=== PATIENT | male | born 1955 | race Caucasian/White ===

== ENCOUNTER 2017-07-25 06:16 | Observation (INO) | payer OTHER ==
--- NOTE | 2017-07-25 08:11 | PDOC ---
History of Present Illness - General History Source: Patient Exam Limitations: No Limitations - History of Present Illness Initial Comments: 07/25/17 10:40 The patient is a 62 year old male, with a significant past medical history of CAD s/p 2 stents (5yrs ago), L femoral bypass, L carotid stenting, NIDDM and HTN who presents to the emergency department with SOB since this morning. He reports waking up this morning with a dry throat, he notes getting up to go to the bathroom with the sudden onset of SOB after. He reports since his SOB is much worse when he lies down. He denies any LE swelling. He denies any recent travel. He denies any recent fevers, chills, headache or dizziness. He denies any recent nausea, vomit, diarrhea or constipation. He denies any recent chest pain. He denies any recent dysuria, frequency, urgency or hematuria. Allergies: NKA Past surgical history: x3 stents Social History: Nonsmoker. Denies EtOH use and recreational drug use. Primary Care Physician: <Marin Petersen - Last Filed: 07/25/17 10:40> <Vee Santiago - Last Filed: 07/25/17 14:27> - General Chief Complaint: Shortness of Breath Stated Complaint: SOB Time Seen by Provider: 07/25/17 07:54 Past History <Marin Petersen - Last Filed: 07/25/17 10:40> - Past Medical History Anemia: No Asthma: No Cancer: No Cardiac Disorders: Yes (CARDIAC STENT 2012) CVA: No COPD: No Diabetes: Yes GI Disorders: No Disorders: No HTN: Yes Hypercholesterolemia: No Liver Disease: No Seizures: No Thyroid Disease: No - Surgical History Abdominal Surgery: No Appendectomy: Yes Cardiac Surgery: Yes (CARDIAC 2012) Cholecystectomy: No Lung Surgery: No Neurologic Surgery: No Orthopedic Surgery: No - Suicide/Smoking/Psychosocial Hx Smoking Status: No Smoking History: Never smoked Have you smoked in the past 12 months: No Number of Cigarettes Smoked Daily: 0 If you are a former smoker, when did you quit?: 08/08/2012 Information on smoking cessation initiated: No Hx Alcohol Use: No Drug/Substance Use Hx: No Substance Use Type: None Hx Substance Use Treatment: No <Vee Santiago - Last Filed: 07/25/17 14:27> - Past Medical History Allergies/Adverse Reactions: Allergies Allergy/AdvReac Type Severity Reaction Status Date / Time No Known Drug Allergies Allergy Verified 07/25/17 06:29 Home Medications: Ambulatory Orders Amlodipine Bes/Olmesartan Med [Hans 10-20 mg Tablet] 10 - 20 mg PO DAILY Aspirin [ASA -] 81 mg PO DAILY 01/15/14 Sitagliptin Phos/Metformin HCl [Janumet 50-1,000 mg Tablet] 1 tab PO BID Nebivolol HCl [Bystolic] 2.5 mg PO DAILY 07/25/17 Review of Systems - Review of Systems Able to Perform ROS?: Yes Comments:: 07/25/17 10:40 GENERAL/CONSTITUTIONAL: No fever or chills. No weakness. HEAD, EYES, EARS, NOSE AND THROAT: No change in vision. No ear pain or discharge. +sore throat. GASTROINTESTINAL: No nausea, vomiting, diarrhea or constipation. GENITOURINARY: No dysuria, frequency, or change in urination. CARDIOVASCULAR: +SOB. No chest pain. RESPIRATORY: No cough, wheezing, or hemoptysis. MUSCULOSKELETAL: No joint or muscle swelling or pain. No neck or back pain. SKIN: No rash NEUROLOGIC: No headache, vertigo, loss of consciousness, or change in strength/ sensation. ENDOCRINE: No increased thirst. No abnormal weight change. HEMATOLOGIC/LYMPHATIC: No anemia, easy bleeding, or history of blood clots. ALLERGIC/IMMUNOLOGIC: No hives or skin allergy. <Marin Petersen - Last Filed: 07/25/17 10:40> *Physical Exam - Vital Signs Last Vital Signs Temp Pulse Resp BP Pulse Ox 98.0 F 88 18 134/64 98 07/25/17 08:45 07/25/17 08:45 07/25/17 08:45 07/25/17 08:45 07/25/17 08:45 - Physical Exam Comments: 07/25/17 10:40 GENERAL: Awake, alert, and fully oriented, in no acute distress HEAD: No signs of trauma EYES: PERRLA, EOMI, sclera anicteric, conjunctiva clear ENT: Auricles normal inspection, hearing grossly normal, nares patent, oropharynx clear without exudates or erythema. No tonsillar swelling. Moist mucosa NECK: Normal ROM, supple, no lymphadenopathy, JVD, or masses LUNGS: Breath sounds equal, clear to auscultation bilaterally. No wheezes, and no crackles HEART: Regular rate and rhythm, normal S1 and S2, no murmurs, rubs or gallops ABDOMEN: Soft, nontender, normoactive bowel sounds. No guarding, no rebound. No masses EXTREMITIES: 1+ pitting edema in the LE bilaterally to the knees. Normal range of motion. No clubbing or cyanosis. No cords, erythema, or tenderness BACK: No midline spinal tenderness in cervical/thoracic/lumbar region NEUROLOGICAL: Normal speech, cranial nerves intact, negative pronator drift, 5/ 5 strength in all 4 extremities, normal sensation to light touch in all 4 extremities, normal cerebellar exam, normal gait, normal reflexes and tone SKIN: Warm, Dry, normal turgor, no rashes or lesions noted. <Marin Petersen - Last Filed: 07/25/17 10:40> - Vital Signs Last Vital Signs Temp Pulse Resp BP Pulse Ox 97.6 F 94 H 20 155/79 95 07/25/17 06:18 07/25/17 06:18 07/25/17 06:18 07/25/17 06:18 07/25/17 06:18 <Vee Santiago - Last Filed: 07/25/17 14:27> ED Treatment Course - LABORATORY CBC & Chemistry Diagram: 07/25/17 09:20 07/25/17 08:40 - ADDITIONAL ORDERS Additional order review: Laboratory Results 07/25/17 07/25/17 07/25/17 08:45 08:40 08:40 PT with INR 9.60 L INR 0.85 L PTT (Actin FS) 17.7 L D-Dimer 699 H Sodium Cancelled Potassium Cancelled Chloride Cancelled Carbon Dioxide Cancelled Anion Gap Cancelled BUN Cancelled Creatinine Cancelled Creat Clearance w eGFR Cancelled Random Glucose Cancelled Calcium Cancelled Magnesium Cancelled Total Bilirubin Cancelled AST Cancelled ALT Cancelled Alkaline Phosphatase Cancelled Troponin I Cancelled B-Natriuretic Peptide 1925.10 H Total Protein Cancelled Albumin Cancelled Lipase Cancelled 07/25/17 07/25/17 09:20 08:45 RBC 4.79 Cancelled MCV 84.5 Cancelled MCHC 33.3 Cancelled RDW 13.7 Cancelled MPV 8.4 Cancelled Neutrophils % 72.9 Cancelled Lymphocytes % 20.3 Cancelled Monocytes % 5.2 Cancelled Eosinophils % 0.6 Cancelled Basophils % 1.0 Cancelled <Marin Petersen - Last Filed: 07/25/17 10:40> - LABORATORY CBC & Chemistry Diagram: 07/25/17 09:20 07/25/17 10:44 <Vee Santiago - Last Filed: 07/25/17 14:27> Medical Decision Making - Medical Decision Making 07/25/17 08:23 62-year-old male history of CAD status post stent, carotid stent, left femoral bypass, hypertension, [id number] diabetes mellitus presents with sudden onset shortness of breath this morning. Vitals remarkable for hypertension to the 150 systolic, otherwise normal. Exam remarkable for 1+ lower extremity symmetric pitting edema. Differential is wide and includes but is not limited to acute coronary syndrome versus pulmonary embolism versus CHF versus bronchitis. We'll obtain blood work including troponin, d-dimer, and BNP as well as chest x-ray, and discussed with . 07/25/17 14:25 Labs remarkable for a BNP of 1900. D-dimer was positive, however CTA was negative for PE but showed bilateral small pleural effusions. In light of the lower extremity edema and shortness of breath on exam, patient is likely a new onset CHF. Case discussed with the patient's primary physician Dr. Fatima. Patient to be admitted to telemetry. Also discussed the case with Dr. Doll. Case discussed in detail with admitting physician including history, physical exam and ancillary studies. Admitting physician has assumed care for the patient, will follow all pending diagnostics and will complete the evaluation and treatment. <Vee Santiago - Last Filed: 07/25/17 14:27> *DC/Admit/Observation/Transfer - Attestations Scribe Attestion: 07/25/17 10:41 Documentation prepared by Marin Petersen, acting as medical scientific liaison for Vee Santiago MD. <Marin Petersen - Last Filed: 07/25/17 10:40> - Discharge Dispostion Admit: Yes - Attestations Physician Attestion: 07/25/17 14:27 I, Dr. Vee Santiago MD, attest that this document has been prepared under my direction and personally reviewed by me in its entirety. I further attest, that it accurately reflects all work, treatment, procedures and medical decision -making performed by me. <Vee Santiago - Last Filed: 07/25/17 14:27> Diagnosis at time of Disposition: SOB (shortness of breath) - Discharge Dispostion Condition at time of disposition: Stable - Referrals Referrals: Broderick Thapa MD [Primary Care Provider] - - Patient Instructions - Post Discharge Activity
[2017-07-25 09:07] LABS: INR 0.85 (0.82-1.09); PROTHROMBIN TIME (PATIENT) 9.6 SEC (9.98-11.88)
[2017-07-25 09:09] LABS: ACTIVATED PTT 17.7 SECONDS (26.9-34.4)
[2017-07-25 09:34] LABS: EOS % 0.6 % (0-4.5); HEMATOCRIT 40.4 % (35.4-49); HEMOGLOBIN 13.5 GM/dL (11.7-16.9); LYMPH % 20.3 % (8-40); MCH 28.1 pg (25.7-33.7); MCHC 33.3 g/dl (32.0-35.9); MEAN CELL VOLUME 84.5 fl (80-96); MEAN PLT VOLUME 8.4 fl (7.5-11.1); MONO % 5.2 % (3.8-10.2); NEUT % 72.9 % (42.8-82.8); PLATELET COUNT 175 K/MM3 (134-434); RBC 4.79 M/mm3 (4.00-5.60); RDW 13.7 % (11.9-15.9); WHITE BLOOD COUNT 8.3 K/mm3 (4.0-10.0)
--- NOTE | 2017-07-25 10:57 | EKG ---
Test Reason : Blood Pressure : / mmHG Vent. Rate : 088 BPM Atrial Rate : 088 BPM P-R Int : 172 ms QRS Dur : 104 ms QT Int : 394 ms P-R-T Axes : 044 023 057 degrees QTc Int : 476 ms NORMAL SINUS RHYTHM POSSIBLE LEFT ATRIAL ENLARGEMENT SEPTAL INFARCT (CITED ON OR BEFORE 08-AUG-2005) ABNORMAL ECG WHEN COMPARED WITH ECG OF 08-AUG-2005 12:43, MINIMAL CRITERIA FOR INFERIOR INFARCT ARE NO LONGER PRESENT QUESTIONABLE CHANGE IN INITIAL FORCES OF SEPTAL LEADS T WAVE INVERSION MORE EVIDENT IN LATERAL LEADS Confirmed by SEAN LEGER MD ([id number]) on 07/25/2017 10:56:58 AM Referred By: Confirmed By:SEAN LEGER MD
[2017-07-25 11:20] LABS: ALBUMIN 3.4 g/dl (3.4-5.0); ALK PHOS 65 U/L (45-117); ANION GAP 9 (8-16); BILIRUBIN,TOTAL 0.3 mg/dL (0.2-1.0); BLOOD UREA NITROGEN 22 mg/dL (7-18); CALCIUM 8.1 mg/dL (8.5-10.1); CHLORIDE 105 mmol/L (98-107); CO2 23 mmol/L (21-32); GLUCOSE,RANDOM 299 mg/dL (74-106); POTASSIUM 4.1 mmol/L (3.5-5.1); SGOT/AST 9 U/L (15-37); SGPT/ALT 23 U/L (12-78); SODIUM 137 mmol/L (136-145); TOT PROT 6.3 g/dl (6.4-8.2)
[2017-07-25] MEDS ORDERED: FUROSEMIDE 40 MG/4 ML INJECTABLE VIAL IVPUSH ONE (14:27)
[2017-07-25] MEDS ORDERED: FUROSEMIDE 40 MG/4 ML INJECTABLE VIAL ONE (15:00)
--- NOTE | 2017-07-25 15:19 | HP ---
Admitting History and Physical - Primary Care Physician PCP: Broderick Thapa - Admission Chief Complaint: came in for sob and orthopnea History Source: Patient - Past Medical History Cardiovascular: Yes: HTN Endocrine: Yes: Diabetes Mellitus - Smoking History Smoking history: Never smoked Have you smoked in the past 12 months: No Aproximately how many cigarettes per day: 0 If you are a former smoker, when did you quit?: 08/08/2012 - Alcohol/Substance Use Hx Alcohol Use: No Home Medications - Allergies Allergies/Adverse Reactions: Allergies Allergy/AdvReac Type Severity Reaction Status Date / Time No Known Drug Allergies Allergy Verified 07/25/17 06:29 - Home Medications Home Medications: Ambulatory Orders Amlodipine Bes/Olmesartan Med [Hans 10-20 mg Tablet] 10 - 20 mg PO DAILY Aspirin [ASA -] 81 mg PO DAILY 01/15/14 Sitagliptin Phos/Metformin HCl [Janumet 50-1,000 mg Tablet] 1 tab PO BID Nebivolol HCl [Bystolic] 2.5 mg PO DAILY 07/25/17 Review of Systems - Review of Systems Respiratory: reports: Orthopnea, SOB Physical Examination Vital Signs: Vital Signs Temperature 98.0 F 07/25/17 08:45 Pulse Rate 88 07/25/17 08:45 Respiratory Rate 18 07/25/17 08:45 Blood Pressure 134/64 07/25/17 08:45 O2 Sat by Pulse Oximetry (%) 98 07/25/17 08:45 Constitutional: Yes: Calm Cardiovascular: Yes: Regular Rate and Rhythm, S1, S2 Respiratory: Yes: Diminished Gastrointestinal: Yes: Normal Bowel Sounds, Soft Labs: CBC, BMP 07/25/17 09:20 07/25/17 10:44 Imaging - Results Cat Scan: Report Reviewed Problem List - Problems (1) SOB (shortness of breath) Assessment/Plan: CF exacerbation- volume overload on exam echo I/O lasix iv monitor lytes trend BNP Code(s): R06.02 - SHORTNESS OF BREATH (2) Diabetes Assessment/Plan: bgm sliding scale hold oral hypoglycemic for 24-48 hrs given patient for contrast CT today [id number] Code(s): E11.9 - TYPE 2 DIABETES MELLITUS WITHOUT COMPLICATIONS Qualifiers: Diabetes mellitus type: type 2
[2017-07-25 15:28] LABS: LIPASE 192 U/L (73-393)
[2017-07-25] MEDS: INSULIN SLIDING SCALE (NOVOLOG) 1 VIAL SQ SCH ×2 (16:37→21:47)
[2017-07-25] MEDS ORDERED: INSULIN (NOVOLOG) ASPART 100 UNITS/ML 10ML VIAL ONE (16:38)
--- NOTE | 2017-07-25 17:11 | CON.CARD ---
Consult Consult Specialty:: Cardiology Referred by:: Broderick Thapa MD Reason for Consultation:: Dyspnea - History of Present Illness Chief Complaint: Dyspnea History of Present Illness: The patient is a 62 year old male, with a significant past medical history of Type 2 DM, HTN/HCVD, chol, diastolic dysfunction, CAD s/p 2 stents (5yrs ago), PAD post L SFA [place] stent, L carotid stenting, presented to the emergency department with SOB with exterion and orthopnea since this morning. He denies associated chest pain, palpitations, near or true syncope, PND or LE edema. He reports medication and diet compliance denies NSAID use, symptoms improving with diuresis. Allergies: NKA Past surgical history: CAD post PCI, PAD post L END MATCHER Social History: Nonsmoker. Denies EtOH use and recreational drug use. Primary Care Physician: - History Source History Provided By: Patient Limitations to Obtaining History: No Limitations - Past Medical History Cardio/Vascular: Yes: CAD, CHF, HTN, Hyperlipdemia Endocrine: Yes: Diabetes Mellitus - Past Surgical History Past Surgical History: Yes: Stent - Alcohol/Substance Use Hx Alcohol Use: No - Smoking History Smoking history: Never smoked Have you smoked in the past 12 months: No Aproximately how many cigarettes per day: 0 If you are a former smoker, when did you quit?: 08/08/2012 Home Medications - Allergies Allergies/Adverse Reactions: Allergies Allergy/AdvReac Type Severity Reaction Status Date / Time No Known Drug Allergies Allergy Verified 07/25/17 06:29 - Home Medications Home Medications: Ambulatory Orders Amlodipine Bes/Olmesartan Med [Hans 10-20 mg Tablet] 10 - 20 mg PO DAILY Aspirin [ASA -] 81 mg PO DAILY 01/15/14 Sitagliptin Phos/Metformin HCl [Janumet 50-1,000 mg Tablet] 1 tab PO BID Nebivolol HCl [Bystolic] 2.5 mg PO DAILY 07/25/17 Vital Signs: Vital Signs Temperature 98.0 F 07/25/17 08:45 Pulse Rate 80 07/25/17 16:47 Respiratory Rate 18 07/25/17 16:47 Blood Pressure 129/77 07/25/17 16:47 O2 Sat by Pulse Oximetry (%) 99 07/25/17 16:47 Constitutional: Yes: No Distress, Calm Neck: Yes: Supple Respiratory: Yes: Regular, Diminished Gastrointestinal: Yes: Normal Bowel Sounds, Soft, Abdomen, Obese Cardiovascular: Yes: Regular Rate and Rhythm JVD: No Carotid Bruit: No Heart Sounds: Yes: S1, S2 Edema: Yes Edema: LLE: Trace, RLE: Trace - Other Data Labs, Other Data: CBC, BMP 07/25/17 09:20 07/25/17 10:44 INR, PTT INR 0.85 (0.82-1.09) L 07/25/17 08:40 Troponin, BNP 07/25/17 07/25/17 07/25/17 08:40 08:45 10:44 Troponin I Cancelled 0.03 B-Natriuretic Peptide 1925.10 H Troponin, BNP 07/25/17 07/25/17 07/25/17 08:40 08:45 10:44 Troponin I Cancelled 0.03 B-Natriuretic Peptide 1925.10 H Imaging - Results Chest X-ray: Report Reviewed (Bibasilar ATX) Cat Scan: Report Reviewed (Chest CTA-Negative pulmonary embolism, small bilateral effusions with bibasilar ATX) EKG: Report Reviewed (NSR @ 88 LAE septal infarct) Problem List - Problems (1) Acute on chronic diastolic (congestive) heart failure Code(s): I50.33 - ACUTE ON CHRONIC DIASTOLIC (CONGESTIVE) HEART FAILURE (2) Type 2 diabetes mellitus Code(s): E11.9 - TYPE 2 DIABETES MELLITUS WITHOUT COMPLICATIONS Qualifiers: Diabetes mellitus complication status: without complication Diabetes mellitus exterminator helper insulin use: without exterminator helper use Qualified Code(s): E11.9 - Type 2 diabetes mellitus without complications (3) Hyperlipidemia associated with type 2 diabetes mellitus Code(s): E11.69 - TYPE 2 DIABETES MELLITUS WITH OTHER SPECIFIED COMPLICATION; E78.5 - HYPERLIPIDEMIA, UNSPECIFIED (4) Hypertensive cardiomyopathy Code(s): I11.9 - HYPERTENSIVE HEART DISEASE WITHOUT HEART FAILURE; I43 - CARDIOMYOPATHY IN DISEASES CLASSIFIED ELSEWHERE Qualifiers: Heart failure presence: with heart failure Qualified Code(s): I11.0 - Hypertensive heart disease with heart failure; I43 - Cardiomyopathy in diseases classified elsewhere; I43 - Cardiomyopathy in diseases classified elsewhere; I43 - Cardiomyopathy in diseases classified elsewhere; I43 - Cardiomyopathy in diseases classified elsewhere (5) Peripheral artery disease Code(s): I73.9 - PERIPHERAL VASCULAR DISEASE, UNSPECIFIED (6) Coronary artery disease Code(s): I25.10 - ATHSCL HEART DISEASE OF [place] CORONARY ARTERY W/O ANG PCTRS Qualifiers: Coronary Disease-Associated Artery/Lesion type: [place] artery [place] vs. transplanted heart: [place] heart Associated angina: without angina Qualified Code(s): I25.10 - Atherosclerotic heart disease of [place] coronary artery without angina pectoris (7) Status post coronary artery stent placement Code(s): Z95.5 - PRESENCE OF CORONARY ANGIOPLASTY IMPLANT AND GRAFT (8) Status post peripheral artery angioplasty with insertion of stent Code(s): Z95.820 - PERIPHERAL VASCULAR ANGIOPLASTY STATUS W IMPLANTS AND GRAFTS (9) History of left common carotid artery stent placement Code(s): Z98.890 - OTHER SPECIFIED POSTPROCEDURAL STATES; Z95.828 - PRESENCE OF OTHER VASCULAR IMPLANTS AND GRAFTS Assessment/Plan 07/25/2017 Echo: Normal biventricular size and fxn, mild MR, [place] 06/20/2016 ETT Myovire: No ischemia, normal LV size and fxn, LVEF 56% 1. Acute on chronic diastolic failure 2. HTN/HCVD 3. CAD s/p PCI (stent) angina pectoris 4. Type 2 DM 5. PAD s/p L SFA END MATCHER 6. L Carotid stenosis post stent P:1. IV diuresis with monitor diuretic response, renal fxn and electrolytes 2. Ruling out for [place], check TSH, lipid panel, Ha1c 3. Continue Hans 10/20 qd or equivalent, ASA 81 qd, Bystolic 5 qd, Lipitor 40 qd and Plavix 75 qd 4. Thank you for consultative opportunity
[2017-07-25 21:14] VITALS: BMI 32.3
[2017-07-25] MEDS ORDERED: ATORVASTATIN CA 40 MG TABLET (FP) PO SCH (22:00)
[2017-07-26] MEDS ORDERED: FUROSEMIDE 40 MG/4 ML INJECTABLE VIAL IVPUSH SCH (06:00)
[2017-07-26] MEDS: INSULIN SLIDING SCALE (NOVOLOG) 1 VIAL SQ SCH (06:40)
[2017-07-26] MEDS ORDERED: sitaGLIPtin PHOSPHATE 50 MG TABLET PO SCH (07:00)
[2017-07-26] MEDS ORDERED: metFORMIN HCL 500 MG TABLET (FP) PO SCH (07:00)
[2017-07-26 07:12] LABS: EOS % 1.6 % (0-4.5); HEMATOCRIT 38.6 % (35.4-49); HEMOGLOBIN 12.8 GM/dL (11.7-16.9); LYMPH % 28.3 % (8-40); MCH 27.9 pg (25.7-33.7); MCHC 33.2 g/dl (32.0-35.9); MEAN CELL VOLUME 84.2 fl (80-96); MEAN PLT VOLUME 8.6 fl (7.5-11.1); MONO % 6.8 % (3.8-10.2); NEUT % 62.3 % (42.8-82.8); PLATELET COUNT 167 K/MM3 (134-434); RBC 4.59 M/mm3 (4.00-5.60); RDW 13.4 % (11.9-15.9); WHITE BLOOD COUNT 6.7 K/mm3 (4.0-10.0)
[2017-07-26 07:24] LABS: CHLORIDE 104 mmol/L (98-107); POTASSIUM 3.7 mmol/L (3.5-5.1); SODIUM 138 mmol/L (136-145)
[2017-07-26 07:46] LABS: ALK PHOS 60 U/L (45-117); ANION GAP 9 (8-16); BILIRUBIN,TOTAL 0.3 mg/dL (0.2-1.0); BLOOD UREA NITROGEN 22 mg/dL (7-18); CALCIUM 7.5 mg/dL (8.5-10.1); CHOLESTEROL 165 mg/dL (50-200); CO2 25 mmol/L (21-32); GLUCOSE,RANDOM 270 mg/dL (74-106); HDL CHOLESTEROL 29 mg/dL (40-60); LDL CHOLESTEROL (ONLY SJRH) 108 mg/dL (5-100); SGOT/AST 9 U/L (15-37); SGPT/ALT 19 U/L (12-78); TOT PROT 5.8 g/dl (6.4-8.2); TRIGLYCERIDES 283 mg/dL (35-160)
--- NOTE | 2017-07-26 09:03 | PN ---
Progress Note, Physician History of Present Illness: Symptoms of SOB with extertion and orthopnea resolved with IV diuresis. - Current Medication List Current Medications: Active Medications Amlodipine Besylate (Norvasc -) 10 mg PO DAILY [facility] Aspirin (Asa -) 81 mg PO DAILY [facility] Atorvastatin Calcium (Lipitor -) 40 mg PO HS [facility] Last Admin: 07/25/17 21:19 Dose: 40 mg Clopidogrel Bisulfate (Plavix -) 75 mg PO DAILY [facility] Furosemide (Lasix Injection -) 40 mg IVPUSH BID@0600,1400 [facility] Last Admin: 07/26/17 06:38 Dose: 40 mg Influenza Virus Vaccine Quadrival (Flulaval Quad [id number]) 60 mcg IM .ONCE ONE Stop: 07/26/17 10:01 Insulin Aspart (Novolog Vial Sliding Scale -) 1 vial SQ ACHS [facility] PRN Reason: Protocol Last Admin: 07/26/17 06:40 Dose: 4 unit Metformin HCl (Glucophage -) 1,000 mg PO DAILY@0700 [facility] Last Admin: 07/26/17 06:39 Dose: Not Given Nebivolol (Bystolic -) 5 mg PO DAILY [facility] Sitagliptin Phosphate (Januvia -) 50 mg PO DAILY@0700 [facility] Last Admin: 07/26/17 06:39 Dose: 50 mg Valsartan (Diovan -) 40 mg PO DAILY [facility] - Objective Vital Signs: Vital Signs Temperature 98.5 F 07/26/17 06:00 Pulse Rate 92 H 07/26/17 06:00 Respiratory Rate 18 07/26/17 06:00 Blood Pressure 152/82 07/26/17 06:00 O2 Sat by Pulse Oximetry (%) 99 07/25/17 22:00 Constitutional: Yes: No Distress, Calm Neck: Yes: Supple Cardiovascular: Yes: Regular Rate and Rhythm Respiratory: Yes: Regular, Diminished Gastrointestinal: Yes: Normal Bowel Sounds, Soft, Abdomen, Obese Edema: No Labs: CBC, BMP 07/26/17 05:35 07/26/17 05:35 INR, PTT INR 0.85 (0.82-1.09) L 07/25/17 08:40 - ....Imaging EKG: Report Reviewed (Tele: NSR) Problem List - Problems (1) Acute on chronic diastolic (congestive) heart failure Code(s): I50.33 - ACUTE ON CHRONIC DIASTOLIC (CONGESTIVE) HEART FAILURE (2) Hyperlipidemia associated with type 2 diabetes mellitus Code(s): E11.69 - TYPE 2 DIABETES MELLITUS WITH OTHER SPECIFIED COMPLICATION; E78.5 - HYPERLIPIDEMIA, UNSPECIFIED (3) Hypertensive cardiomyopathy Code(s): I11.9 - HYPERTENSIVE HEART DISEASE WITHOUT HEART FAILURE; I43 - CARDIOMYOPATHY IN DISEASES CLASSIFIED ELSEWHERE Qualifiers: Heart failure presence: with heart failure Qualified Code(s): I11.0 - Hypertensive heart disease with heart failure; I43 - Cardiomyopathy in diseases classified elsewhere; I43 - Cardiomyopathy in diseases classified elsewhere; I43 - Cardiomyopathy in diseases classified elsewhere; I43 - Cardiomyopathy in diseases classified elsewhere (4) Peripheral artery disease Code(s): I73.9 - PERIPHERAL VASCULAR DISEASE, UNSPECIFIED (5) Coronary artery disease Code(s): I25.10 - ATHSCL HEART DISEASE OF [place] CORONARY ARTERY W/O ANG PCTRS Qualifiers: Coronary Disease-Associated Artery/Lesion type: [place] artery [place] vs. transplanted heart: [place] heart Associated angina: without angina Qualified Code(s): I25.10 - Atherosclerotic heart disease of [place] coronary artery without angina pectoris (6) Status post coronary artery stent placement Code(s): Z95.5 - PRESENCE OF CORONARY ANGIOPLASTY IMPLANT AND GRAFT (7) Status post peripheral artery angioplasty with insertion of stent Code(s): Z95.820 - PERIPHERAL VASCULAR ANGIOPLASTY STATUS W IMPLANTS AND GRAFTS (8) History of left common carotid artery stent placement Code(s): Z98.890 - OTHER SPECIFIED POSTPROCEDURAL STATES; Z95.828 - PRESENCE OF OTHER VASCULAR IMPLANTS AND GRAFTS (9) 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 Acute on chronic diastolic failure in context of diabetic cardiomyopathy resolving 2. HTN/HCVD 3. CAD s/p PCI (stent) angina pectoris 4. Type 2 DM (poorly controlled 12.1%) 5. 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 L Carotid stenosis post stent P:1. Change to oral diuresis with Aldactone 25 qd and monitor diuretic response , renal fxn and electrolytes 2. Ruled out for [place] 3. Continue Hans 10/20 qd or equivalent, ASA 81 qd, Bystolic 5 qd, Lipitor 40 qd and Plavix 75 qd 4. D/c planning with f/u with Dr. Hawk Castillo at [facility], recommend diabetology referral and optimize glycemic regimen
[2017-07-26] MEDS ORDERED: VALSARTAN 80 MG TABLET (UD) PO SCH (10:00)
[2017-07-26] MEDS ORDERED: NEBIVOLOL 5 MG TABLET (FP) PO SCH (10:00)
[2017-07-26] MEDS ORDERED: VALSARTAN 40 MG TABLET (FP) PO SCH (10:00)
[2017-07-26] MEDS ORDERED: amLODIPine BESYLATE 10 MG TABLET (FP) PO SCH (10:00)
[2017-07-26] MEDS ORDERED: FLU VACCINE QUAD 60 MCG/0.5 ML (MDV 17-18) IM ONE (10:00)
[2017-07-26] MEDS ORDERED: SPIRONOLACTONE 25 MG TABLET (FP) PO SCH (10:00)
[2017-07-26] MEDS ORDERED: ASPIRIN 81 MG CHEWABLE TABLETS PO SCH (10:00)
[2017-07-26] MEDS ORDERED: CLOPIDOGREL BISULFATE 75 MG TABLET (FP) PO SCH (10:00)
--- NOTE | 2017-07-26 10:32 | DS ---
Physical Examination Vital Signs: Vital Signs Temperature 98.5 F 07/26/17 06:00 Pulse Rate 92 H 07/26/17 06:00 Respiratory Rate 18 07/26/17 06:00 Blood Pressure 152/82 07/26/17 06:00 O2 Sat by Pulse Oximetry (%) 99 07/25/17 22:00 Findings/Remarks: feels good cleared by cardiology Constitutional: Yes: No Distress Eyes: Yes: WNL HENT: Yes: WNL Neck: Yes: WNL Cardiovascular: Yes: WNL Respiratory: Yes: WNL Gastrointestinal: Yes: WNL Renal/: Yes: WNL Musculoskeletal: Yes: WNL Extremities: Yes: WNL Edema: No Peripheral Pulses WNL: Yes Integumentary: Yes: WNL Wound/Incision: Yes: Clean/Dry Neurological: Yes: WNL ...Motor Strength: WNL Psychiatric: Yes: WNL Labs: CBC, BMP 07/26/17 05:35 07/26/17 05:35 Discharge Summary Reason For Visit: SHORTNESS OF BREATH Current Active Problems Acute on chronic diastolic (congestive) heart failure (Acute) Coronary artery disease (Acute) Diabetes (Acute) 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 (Acute) History of left common carotid artery stent placement (Acute) Hyperlipidemia associated with type 2 diabetes mellitus (Acute) Hypertensive cardiomyopathy (Acute) Peripheral artery disease (Acute) SOB (shortness of breath) (Acute) Status post coronary artery stent placement (Acute) Status post peripheral artery angioplasty with insertion of stent (Acute) Type 2 diabetes mellitus (Acute) Procedures: Principal: ct chest Other Procedures: echo Hospital Course: admitted diuresed with lasix, cardiac workup, will follow as outpatient Condition: Stable - Instructions Diet, Activity, Other Instructions: low salt ada strict ada diet discussed insulin therapy started follow with dr groves 1 week cardiology 2 weeks Referrals: Broderick Groves MD [Primary Care Provider] - Disposition: HOME - Home Medications Comprehensive Discharge Medication List: Ambulatory Orders Amlodipine Bes/Olmesartan Med [Hans 10-20 mg Tablet] 10 - 20 mg PO DAILY Aspirin [ASA -] 81 mg PO DAILY 01/15/14 Sitagliptin Phos/Metformin HCl [Janumet 50-1,000 mg Tablet] 1 tab PO BID Aspirin [ASA -] 81 mg PO DAILY tab.chew 07/26/17 Atorvastatin Ca [Lipitor] 40 mg PO HS #30 tablet 07/26/17 Clopidogrel Bisulfate [Plavix -] 75 mg PO DAILY #30 tablet 07/26/17 Insulin Detemir [Levemir Flextouch] 100 unit SQ BID #10 insuln.pen 07/26/17 Nebivolol [Bystolic -] 5 mg PO DAILY #30 tab 07/26/17 Spironolactone [Aldactone -] 25 mg PO DAILY #30 tablet 07/26/17
[2017-07-26 11:06] VITALS: BP 153/89; PULSE 88; TEMP 98.2
== END 2017-07-26 11:30 | disposition home or self-care (01) ==
LOC: JER 06:16 → JERBED 14:27 → UNDOADMOB 14:27 → INTOOBSV 14:27 → JERBED 15:17 → J4W 20:29
PROVIDERS: ADMIT Family Medicine; ATTEND Family Medicine
PROC: 3E033GC Introduction of Other Therapeutic Substance into Peripheral Vein, Percutaneous Approach (ICD-10-PCS; principal; 2017-07-25)
PROC: 3E013VG Introduction of Insulin into Subcutaneous Tissue, Percutaneous Approach (ICD-10-PCS; 2017-07-25)
DX: I50.33 Acute on chronic diastolic (congestive) heart failure (principal); R06.02 Shortness of breath; I25.10 Atherosclerotic heart disease of native coronary artery without angina pectoris; I11.9 Hypertensive heart disease without heart failure; I43 Cardiomyopathy in diseases classified elsewhere; I73.9 Peripheral vascular disease, unspecified; E11.69 Type 2 diabetes mellitus with other specified complication; E78.5 Hyperlipidemia, unspecified; Z95.5 Presence of coronary angioplasty implant and graft; Z95.828 Presence of other vascular implants and grafts; Z79.82 Long term (current) use of aspirin; Z79.84 Long term (current) use of oral hypoglycemic drugs; Z95.820 Peripheral vascular angioplasty status with implants and grafts
CPT/HCPCS: 36415; 71045-TC; 71275-TC; 80048; 80053; 80061; 82962; 83036; 83690; 83721; 83880; 84443; 84484; 85025; 85379; 85610; 85730; 90688; 93005; 93010; 93306-TC; 99284-25; G0378

== ENCOUNTER 2018-06-21 01:30 | Emergency (ER) | payer OTHER ==
--- NOTE | 2018-06-21 02:26 | PDOC ---
History of Present Illness - General Chief Complaint: Cold Symptoms Stated Complaint: SHORTNESS OF BREATH,COLD Time Seen by Provider: 06/21/18 01:44 History Source: Patient Exam Limitations: No Limitations - History of Present Illness Initial Comments: 06/21/18 02:26 Patient is a 63 year old male with a PMHx of CAD s/p two stents, left femoral bypass, left carotid stenting, IDDMII, Diastolic CHF, PAD and HTN who presents today complaining of a three week history of cold-like symptoms. Patient reports that 5 weeks ago he started having a productive cough with green phlegm associated with runny nose, weakness, sore throat, and ear pain. Patient's symptoms mostly resolved three weeks ago except for the cough and then took his fly shot. However, his son was recently sick with the flu and patient started experiencing worsening productive cough with green phlegm associated with shortness of breath and orthopnea for the past three days. He states that he is unable to lay flat without feeling short of breath and today he took 7 steps and started experiencing severe shortness of breath with color changes to his face, which prompted this hospital visit. Patient reports taking Nyquil and Mucinex for the symptoms but without much relief. Otherwise, patient denies any fever, chills, nausea, vomiting, abdominal pain, chest pain, palpitations, dizziness, loss of consciousness, headaches, acute vision changes, dysuria, hematuria, hematochezia, hematemesis. 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 Past History - Past Medical History Allergies/Adverse Reactions: Allergies Allergy/AdvReac Type Severity Reaction Status Date / Time No Known Drug Allergies Allergy Verified 06/21/18 03:31 Home Medications: Ambulatory Orders Amlodipine Bes/Olmesartan Med [Amlodipine-Olmesartan 5-20 mg] 1 each PO DAILY Atorvastatin Ca [Lipitor] 40 mg PO HS 06/21/18 Azithromycin [Zithromax 250mg Tablets -] 250 mg PO UTDICT #6 tab 06/21/18 Clopidogrel Bisulfate [Plavix] 75 mg PO DAILY 06/21/18 Nebivolol [Bystolic -] 5 mg PO DAILY 06/21/18 Sitagliptin Phos/Metformin HCl [Janumet 50-1,000 mg Tablet] 1 each PO BID Anemia: No Asthma: No Cancer: No Cardiac Disorders: Yes (CARDIAC STENT 2012) CVA: No COPD: No CHF: No Dementia: No Diabetes: Yes GI Disorders: No Disorders: No HTN: Yes Hypercholesterolemia: No Liver Disease: No Seizures: No Thyroid Disease: No - Surgical History Abdominal Surgery: No Appendectomy: Yes Cardiac Surgery: Yes (CARDIAC 2012) Cholecystectomy: No Lung Surgery: No Neurologic Surgery: No Orthopedic Surgery: No - Suicide/Smoking/Psychosocial Hx Smoking Status: No Smoking History: Never smoked Have you smoked in the past 12 months: No Number of Cigarettes Smoked Daily: 0 If you are a former smoker, when did you quit?: 08/08/2012 Hx Alcohol Use: No Drug/Substance Use Hx: No Substance Use Type: None Hx Substance Use Treatment: No Review of Systems - Review of Systems Constitutional: No: Chills, Diaphoresis, Fever, Night Sweats HEENTM: Yes: Nose Congestion, Throat Pain. No: Blurred Vision Respiratory: Yes: Cough, Orthopnea, Shortness of Breath, SOB with Exertion, SOB at Rest, Productive cough. No: Stridor, Wheezing, Hemoptysis Cardiac (ROS): No: Chest Pain, Edema, Palpitations, Syncope, Chest Tightness ABD/GI: No: Constipated, Diarrhea, Nausea, Vomiting, Indigestion, Abdominal cramping : No: Burning, Dysuria, Discharge, Frequency, Flank Pain, Hematuria, Incontinence, Pain Musculoskeletal: No: Back Pain, Muscle Pain, Muscle Weakness Integumentary: No: Bruising, Erythema Neurological: No: Headache, Numbness, Seizure, Tingling, Tremors, Weakness, Dizziness *Physical Exam - Vital Signs Last Vital Signs Temp Pulse Resp BP Pulse Ox 98.7 F 89 19 139/77 100 06/21/18 01:44 06/21/18 01:44 06/21/18 01:44 06/21/18 01:44 06/21/18 01:44 - Physical Exam General Appearance: Yes: Other (Awake, alert, oriented x3, no acute distress ) HEENT: positive: EOMI, BRONSON, Normal ENT Inspection, Symmetrical, TMs Normal, Pharynx Normal, Rhinorrhea. negative: Pharyngeal Erythema, Tonsillar Exudate, Tonsillar Erythema, Sinus Tenderness Neck: negative: Decreased range of motion, Lymphadenopathy (R), Lymphadenopathy (L) Respiratory/Chest: positive: Lungs Clear, Normal Breath Sounds. negative: Respiratory Distress, Accessory Muscle Use, Crackles, Rales, Rhonchi, Wheezing Cardiovascular: positive: Regular Rhythm, Regular Rate, S1, S2. negative: Edema , JVD Gastrointestinal/Abdominal: positive: Other (Soft, nontender, nondistended, normoactive bowel sounds, no rebound or guarding (+) abdominal hernia) Musculoskeletal: positive: Normal Inspection. negative: CVA Tenderness, CVA Tenderness (R), CVA Tenderness (L), Decreased Range of Motion Extremity: positive: Other (chronic venous stasis ) Integumentary: positive: Normal Color, Dry, Warm. negative: Cold, Clammy, Diaphoresis Neurologic: positive: life scientists II-XII NML intact, Fully Oriented, Alert, Normal Mood/ Affect, Normal Response, Motor Strength 5/5 Moderate Sedation - Procedure Monitoring Vital Signs: Procedure Monitoring Vital Signs Temperature 98.7 F 06/21/18 01:44 Pulse Rate 89 06/21/18 01:44 Respiratory Rate 19 06/21/18 01:44 Blood Pressure 139/77 06/21/18 01:44 O2 Sat by Pulse Oximetry (%) 100 06/21/18 01:44 ED Treatment Course - LABORATORY CBC & Chemistry Diagram: 06/21/18 03:10 06/21/18 03:10 - RADIOLOGY Radiology Studies Ordered: Category Date Time Status CHEST X-RAY PORTABLE* [RAD] Stat Radiology 06/21/18 02:24 Ordered Medical Decision Making - Medical Decision Making 06/21/18 02:46 Patient is a 63 year old male who presents with cold like symptoms associated with shortness of breath on exertion and orthopnea. Will need to rule out ACS, PNA, Bronchitis, Acute on chronic CHF. -CBC, CMP, BNP ordered -EKG and CXR -Influenza swab 06/21/18 04:16 -Patients lab reveals creatinine 1.4. Patient and patients family reports he had labs done three months ago with the same creatinine. Glucose 316. Patient is scheduled to see hand assembler, Dr. Robles next week. -Chest X-Ray showed bilateral pulmonary congestion and possible atelectasis/ infiltrates, but unchanged from previous CXR 12 months ago -Will give one dose of azithromycin and prescribe Z-pack -Patient walked over 50 feet with 02 saturation 95% and heart rate between 80s- 90's same as when patient sitting down -Will discharge patient and recommend to follow up with PCP -Patient reports he will take his insulin at home tonight *DC/Admit/Observation/Transfer Diagnosis at time of Disposition: Bronchitis Upper respiratory infection Qualifiers: URI type: unspecified URI Qualified Code(s): J06.9 - Acute upper respiratory infection, unspecified - Discharge Dispostion Disposition: HOME Condition at time of disposition: Stable Decision to Admit order: No - Prescriptions Prescriptions: Azithromycin [Zithromax 250mg Tablets -] 250 mg PO UTDICT #6 tab - Referrals Referrals: Broderick Thapa MD [Primary Care Provider] - Munir Burr MD [Staff Physician] - - Patient Instructions Additional Instructions: -You were seen here for an upper respiratory infection. Your flu was negative and your labs did not show an infection. However, you continue to have a cough with shortness of breath. You were prescribed a Z-pack which is antibiotics. Please pick it up from your pharmacy and follow instructions as directed -You were found to have elevated sugar levels. It is important you maintain a balance diet and avoid starchy foods such as white rice, bread, and potatoes. You have an appointment with an hand assembler next week. -Please follow up with your primary care physician within a week. -If symptoms persist, please return to the emergency department - Post Discharge Activity
[2018-06-21 03:01] VITALS: BP 139/77; PULSE 89; TEMP 98.7; BMI 33.7
[2018-06-21 03:24] LABS: BASO % 1.1 % (0-2.0); HEMATOCRIT 31.1 % (35.4-49); HEMOGLOBIN 10.9 GM/dL (11.7-16.9); LYMPH % 16.8 % (8-40); MEAN CELL VOLUME 82.7 fl (80-96); MEAN PLT VOLUME 8.3 fl (7.5-11.1); MONO % 6.1 % (3.8-10.2); PLATELET COUNT 259 K/MM3 (134-434); RBC 3.76 M/mm3 (4.00-5.60); RDW 13.7 % (11.9-15.9); WHITE BLOOD COUNT 8.2 K/mm3 (4.0-10.0)
[2018-06-21 03:46] LABS: ALBUMIN 3.2 g/dl (3.4-5.0); ALK PHOS 79 U/L (45-117); ANION GAP 8 MMOL/L (8-16); BILIRUBIN,TOTAL 0.3 mg/dL (0.2-1); BLOOD UREA NITROGEN 31 mg/dL (7-18); CALCIUM 8.2 mg/dL (8.5-10.1); CHLORIDE 103 mmol/L (98-107); CO2 25 mmol/L (21-32); CREATININE 1.4 mg/dL (0.55-1.3); SGOT/AST 15 U/L (15-37); SGPT/ALT 27 U/L (13-61); SODIUM 136 mmol/L (136-145); TOT PROT 6.5 g/dl (6.4-8.2)
[2018-06-21 03:48] LABS: GLUCOSE,RANDOM 319 mg/dL (74-106)
[2018-06-21] MEDS ORDERED: AZITHROMYCIN 500 MG TABLET PO ONE (04:06)
[2018-06-21] MEDS ORDERED: AZITHROMYCIN 500 MG TABLET ONE (04:17)
--- NOTE | 2018-06-21 13:26 | EKG ---
Test Reason : Blood Pressure : / mmHG Vent. Rate : 086 BPM Atrial Rate : 086 BPM P-R Int : 170 ms QRS Dur : 148 ms QT Int : 440 ms P-R-T Axes : 045 046 006 degrees QTc Int : 526 ms NORMAL SINUS RHYTHM RIGHT BUNDLE BRANCH BLOCK ABNORMAL ECG WHEN COMPARED WITH ECG OF 25-JUL-2017 08:53, RIGHT BUNDLE BRANCH BLOCK IS NOW PRESENT CRITERIA FOR SEPTAL INFARCT ARE NO LONGER PRESENT Confirmed by AFRICA KAPLAN, SEAN ([id number]) on 06/21/2018 1:26:30 PM Referred By: Confirmed By:SEAN LEGER MD
== END 2018-06-21 04:41 | disposition home or self-care (01) ==
LOC: JER 01:30
DX: J20.9 Acute bronchitis, unspecified (principal); J06.9 Acute upper respiratory infection, unspecified; I25.10 Atherosclerotic heart disease of native coronary artery without angina pectoris; I11.0 Hypertensive heart disease with heart failure; Z95.1 Presence of aortocoronary bypass graft; Z95.5 Presence of coronary angioplasty implant and graft; I50.30 Unspecified diastolic (congestive) heart failure; E11.9 Type 2 diabetes mellitus without complications; Z79.4 Long term (current) use of insulin; I73.9 Peripheral vascular disease, unspecified; Z95.828 Presence of other vascular implants and grafts; Z87.891 Personal history of nicotine dependence
CPT/HCPCS: 36415; 71045-TC-FY; 80053; 82550; 82553; 83880; 84484; 85025; 87804; 93005; 93010; 99283-25

== ENCOUNTER 2018-06-29 16:10 | Inpatient (IN) | payer OTHER ==
--- NOTE | 2018-06-29 17:05 | PDOC ---
History of Present Illness - General Chief Complaint: Pain Stated Complaint: ABDOMINAL BLOATING, SOB Time Seen by Provider: 06/29/18 17:05 - History of Present Illness Initial Comments: 06/29/18 18:15 The patient is a 63 year old male with a history of HTN, HLD, DM, CAD s/p stenting who presents for evaluation of shortness of breath and abdominal bloating. The patient is accompanied by family who assist in providing the history. They note that the patient has been experiencing worsening shortness of breath over the past few weeks. He presented to the ED 1 week ago for similar symptoms with flu-like symptoms but notes continued symptoms since then. He reports worsening dyspnea on exertion and worsening shortness of breath when lying flat. He also notes worsening abdominal bloating and lower extremity swelling. He notes that his lasix was recently changed from 20mg to 40mg but reports no improvement in his symptoms. He otherwise denies fevers, chills, chest pain, nausea, vomiting, abdominal pain, or changes with urination or bowel movements. Past History - Past Medical History Allergies/Adverse Reactions: Allergies Allergy/AdvReac Type Severity Reaction Status Date / Time No Known Drug Allergies Allergy Verified 06/29/18 16:15 Home Medications: Ambulatory Orders Amlodipine Bes/Olmesartan Med [Amlodipine-Olmesartan 5-20 mg] 1 each PO DAILY Atorvastatin Ca [Lipitor] 40 mg PO HS 06/21/18 Clopidogrel Bisulfate [Plavix] 75 mg PO DAILY 06/21/18 Nebivolol [Bystolic -] 5 mg PO DAILY 06/21/18 Sitagliptin Phos/Metformin HCl [Janumet 50-1,000 mg Tablet] 1 each PO BID Furosemide [Lasix] 20 mg PO DAILY 06/29/18 Anemia: No Asthma: No Cancer: No Cardiac Disorders: Yes (CARDIAC STENT 2012) CVA: No COPD: No CHF: No Dementia: No Diabetes: Yes GI Disorders: No Disorders: No HTN: Yes Hypercholesterolemia: No Liver Disease: No Seizures: No Thyroid Disease: No - Surgical History Abdominal Surgery: No Appendectomy: Yes Cardiac Surgery: Yes (CARDIAC 2012) Cholecystectomy: No Lung Surgery: No Neurologic Surgery: No Orthopedic Surgery: No - Suicide/Smoking/Psychosocial Hx Smoking Status: No Smoking History: Never smoked Have you smoked in the past 12 months: No Number of Cigarettes Smoked Daily: 0 If you are a former smoker, when did you quit?: 08/08/2012 Hx Alcohol Use: No Drug/Substance Use Hx: No Substance Use Type: None Hx Substance Use Treatment: No Review of Systems - Review of Systems Comments:: 06/29/18 18:19 Constitutional: No fevers, chills, fatigue, malaise HEENT: No Rhinorrhea, nasal congestion, visual changes Cardiovascular: No chest pain, syncope, palpitations, lightheadedness Respiratory: SOB. Dyspnea on Exertion. Orthopnea. No Cough, Hemoptysis, Gastrointestinal: Abdominal bloating. No Abdominal pain, Nausea, Vomiting, Constipation, Diarrhea, Melena Genitourinary: No Dysuria, Frequency, Urgency, Hesitancy, Hematuria, Flank pain Musculoskeletal: No Myalgia, arthralgia Skin: Lower extremity swelling. No rashes, itching, bruising, pallor Neurologic: No Headache, Dizziness, Numbness, Weakness, or Tingling Psychiatric: No Hallucinations. No SI or HI *Physical Exam - Vital Signs Last Vital Signs Temp Pulse Resp BP Pulse Ox 98 F 87 18 162/81 98 06/29/18 16:13 06/29/18 16:13 06/29/18 16:13 06/29/18 16:13 06/29/18 16:13 - Physical Exam Comments: 06/29/18 18:21 General Appearance: Nourished. No Apparent Distress HEENT: No Pharyngeal Erythema, Tonsillar Exudate, Tonsillar Erythema Neck: No Cervical Lymphadenopathy Respiratory/Chest: Lungs Clear, Normal Breath Sounds. Faint bibasilar rales on exam. No Crackles, Rhonchi, Wheezing Cardiovascular: Regular Rhythm, Regular Rate. No Murmur, Gallops, Rubs Gastrointestinal/Abdominal: Normal Bowel Sounds, Soft. No Guarding, Rebound, Tenderness Musculoskeletal: No CVA Tenderness Extremity: 3+ pitting edema in the lower extremities bilaterally. Normal Capillary Refill Integumentary: Normal Color, Dry, Warm Neurologic: Fully Oriented, Alert, Normal Mood/Affect, Normal Response, Moderate Sedation - Procedure Monitoring Vital Signs: Procedure Monitoring Vital Signs Temperature 98 F 06/29/18 16:13 Pulse Rate 87 06/29/18 16:13 Respiratory Rate 18 06/29/18 16:13 Blood Pressure 162/81 06/29/18 16:13 O2 Sat by Pulse Oximetry (%) 98 06/29/18 16:13 ED Treatment Course - LABORATORY CBC & Chemistry Diagram: 06/29/18 17:35 06/29/18 17:35 Medical Decision Making - Medical Decision Making 06/29/18 18:22 The patient is a 63 year old male with a history of HTN, HLD, DM, CAD s/p stenting who presents for evaluation of shortness of breath and abdominal bloating. Differential includes but is not limited to: CHF, ACS, Pneumonia, Arrhythmia, Infectious, Metabolic Derangement. Given the patient's history and physical exam, we will obtain a cbc, cmp, troponin, bnp, ekg, chest plain film. We will treat with iv lasix and continue to monitor and reassess while here in the ED. The patient will likely require admission for further management. 06/29/18 22:00 CBC, cmp is unremarkable. Troponin is unremarkable. BNP is elevated to 2200s. Chest plain film demonstrates large heart with pulmonary congestion. Given the patient's cardiac risk factors and symptoms consistent with chf, we believe he requires admission for further monitoring and management. We discussed the case with the admitting team who accepted the patient for admission. *DC/Admit/Observation/Transfer Diagnosis at time of Disposition: SOB (shortness of breath), Acute on chronic diastolic (congestive) heart failure - Discharge Dispostion Condition at time of disposition: Stable Decision to Admit order: Yes - Referrals - Patient Instructions - Post Discharge Activity
--- NOTE | 2018-06-29 17:22 | PDOC ---
Attending Attestation - Resident Resident Name: Mynor Hobbs - ED Attending Attestation I have performed the following: I have examined & evaluated the patient, The case was reviewed & discussed with the resident, I agree w/resident's findings & plan, Exceptions are as noted - HPI HPI: 06/29/18 17:21 63 yo p/w abd bloating and sob for several weeks. Patient was seen in the emergency department 06/21/2018 for similar complaints. He was started on Lasix and increased his Lasix to 40 mg daily in the past day as per recommended by Dr. Thapa 06/29/18 18:54 - Physicial Exam PE: 06/29/18 18:56 63-year-old male presents with a complaint of increasing shortness of breath and abdominal girth over the past weeks. Head normocephalic/atraumatic. Neck no appreciable bruits, no JVD. Lungs clear to auscultation bilaterally CVS regular rate and rhythm S1, S2 Abdomen protuberant abdomen, no guarding. Extremities 2+. Edema. Skin warm and dry. Neuro alert and oriented 3, ambulatory, no gross focal neural deficits. Psychiatric appropriate - Medical Decision Making 06/29/18 18:59 63-year-old male with past medical history of type 2 diabetes, diastolic congestive heart failure, coronary artery disease status post 2 stents 5 years ago, left carotid stenting. He denies any chest pain, palpitations or syncope. He is a nonsmoker. Dr. Thapa is his primary care doctor reviewed labs, elevated bnp pt has increasing exertional dyspnea despite increased diuretics and will be admitted for CHF 06/29 trop is negative cr and electrolytes are unremarkable 06/29/18 19:03
[2018-06-29] MEDS ORDERED: FUROSEMIDE 40 MG/4 ML INJECTABLE VIAL IVPUSH ONE (17:47)
[2018-06-29 17:52] LABS: BASO % 0.2 % (0-2.0); EOS % 1.1 % (0-4.5); HEMATOCRIT 31.8 % (35.4-49); HEMOGLOBIN 11.1 GM/dL (11.7-16.9); LYMPH % 20.6 % (8-40); MCH 29.1 pg (25.7-33.7); MEAN CELL VOLUME 83.3 fl (80-96); MEAN PLT VOLUME 8.2 fl (7.5-11.1); MONO % 5.9 % (3.8-10.2); NEUT % 72.2 % (42.8-82.8); PLATELET COUNT 260 K/MM3 (134-434); RBC 3.81 M/mm3 (4.00-5.60); RDW 13.8 % (11.9-15.9); WHITE BLOOD COUNT 6.7 K/mm3 (4.0-10.0)
[2018-06-29 18:44] LABS: ALK PHOS 71 U/L (45-117); ANION GAP 7 MMOL/L (8-16); BILIRUBIN,TOTAL 0.2 mg/dL (0.2-1); BLOOD UREA NITROGEN 29 mg/dL (7-18); CALCIUM 7.9 mg/dL (8.5-10.1); CHLORIDE 104 mmol/L (98-107); CO2 24 mmol/L (21-32); CREATININE 1.1 mg/dL (0.55-1.3); GLUCOSE,RANDOM 138 mg/dL (74-106); N-TERMINAL BNP 2260.4 pg/ml (5-125); POTASSIUM 4.5 mmol/L (3.5-5.1); SGOT/AST 18 U/L (15-37); SGPT/ALT 25 U/L (13-61); SODIUM 135 mmol/L (136-145); TOT PROT 6.3 g/dl (6.4-8.2)
--- NOTE | 2018-06-29 19:41 | HP ---
Admitting History and Physical - Primary Care Physician PCP: Broderick Thapa - Admission Chief Complaint: SOB, Lower Extremity Edema History of Present Illness: This is a 63 y/o man with a significant medical history of HTN, HLD, CAD s/p Stent(2012). Diastolic Dysfunction, PAD s/p L SFA [place] Stent, L Carotid Stenting, Hepatitis B. Who presents to the ED with increased SOB x several weeks , LE edema. Patient reports having his Lasix dose increased without improvement. Patient reports having abdominal distention x 4 days after taking an enema last Saturday for constipation. Patient reports having two hard BMs today. Patient denies fever, RIDDLE, dizziness, CP, palpitations, AP, N/V, hematochezia, melena, hematuria, dysuria. History Source: Patient, Family Member Limitations to Obtaining History: No Limitations - Past Medical History Cardiovascular: Yes: CAD, CHF, HTN, Hyperlipdemia, Other (PAD) Hepatobiliary: Yes: Hepatitis B Endocrine: Yes: Diabetes Mellitus - Past Surgical History Past Surgical History: Yes: Stent - Smoking History Smoking history: Former smoker Have you smoked in the past 12 months: No Aproximately how many cigarettes per day: 0 (Hookah) If you are a former smoker, when did you quit?: 08/08/2012 - Alcohol/Substance Use Hx Alcohol Use: No History of Substance Use: reports: None - Social History Usual Living Arrangement: Yes: With Spouse, With Child ADL: Independent History of Recent Travel: No Home Medications - Allergies Allergies/Adverse Reactions: Allergies Allergy/AdvReac Type Severity Reaction Status Date / Time No Known Drug Allergies Allergy Verified 06/29/18 16:15 - Home Medications Home Medications: Ambulatory Orders Amlodipine Bes/Olmesartan Med [Amlodipine-Olmesartan 5-20 mg] 1 each PO DAILY Atorvastatin Ca [Lipitor] 40 mg PO HS 06/21/18 Clopidogrel Bisulfate [Plavix] 75 mg PO DAILY 06/21/18 Nebivolol [Bystolic -] 5 mg PO DAILY 06/21/18 Sitagliptin Phos/Metformin HCl [Janumet 50-1,000 mg Tablet] 1 each PO BID Furosemide [Lasix] 20 mg PO DAILY 06/29/18 Family Disease History - Family Disease History Family Disease History: Diabetes: Mother, Heart Disease: Brother, CA: Father ( Prostate) Review of Systems - Review of Systems Constitutional: reports: No Symptoms Eyes: reports: No Symptoms HENT: reports: No Symptoms Neck: reports: No Symptoms Cardiovascular: reports: Edema, Shortness of Breath Respiratory: reports: Cough, Orthopnea, SOB, SOB on Exertion Gastrointestinal: reports: Bloating, Constipation, Diarrhea Genitourinary: reports: No Symptoms Breasts: reports: No Symptoms Reported Musculoskeletal: reports: No Symptoms Integumentary: reports: No Symptoms Neurological: reports: No Symptoms Endocrine: reports: No Symptoms Hematology/Lymphatic: reports: No Symptoms Psychiatric: reports: No Symptoms Physical Examination Vital Signs: Vital Signs Temperature 98 F 06/29/18 16:13 Pulse Rate 85 06/29/18 18:25 Respiratory Rate 18 06/29/18 18:25 Blood Pressure 165/88 06/29/18 18:25 O2 Sat by Pulse Oximetry (%) 98 06/29/18 18:25 Constitutional: Yes: Well Nourished, No Distress, Calm, Obese Eyes: Yes: WNL, Conjunctiva Clear, EOM Intact, PERRL HENT: Yes: WNL, Atraumatic, Normocephalic Neck: Yes: WNL, Supple, Trachea Midline Cardiovascular: Yes: WNL, Regular Rate and Rhythm, S1, S2 Respiratory: Yes: Diminished, SOB on Exertion Gastrointestinal: Yes: Abdomen, Obese, Ascites, Distention, Hypoactive Bowel Sounds Renal/: Yes: WNL Breast(s): Yes: WNL Musculoskeletal: Yes: WNL Edema: Yes Edema: LLE: 3+, RLE: 2+ Peripheral Pulses WNL: Yes Neurological: Yes: WNL, Alert, Oriented, Cran Nerves II-XII Intact ...Motor Strength: WNL Psychiatric: Yes: WNL, Alert, Oriented Labs: CBC, BMP 06/29/18 17:35 06/29/18 17:35 Troponin, BNP 06/29/18 17:35 Troponin I 0.03 B-Natriuretic Peptide 2260.4 H Intake & Output 06/26/18 06/27/18 06/28/18 06/29/18 23:59 23:59 23:59 23:59 Weight 102.512 kg Current Medications Generic Name Dose Route Start Last Admin Trade Name Freq PRN Reason Stop Dose Admin Clopidogrel Bisulfate 75 mg 06/30/18 10:00 Plavix - PO DAILY [facility] Furosemide 40 mg 06/30/18 06:00 Lasix Injection - IVPUSH BID@0600,1400 [facility] Nebivolol 5 mg 06/30/18 10:00 Bystolic - PO DAILY [facility] Non-Formulary Medication 1 each 06/30/18 10:00 Amlodipine Bes/Olmesartan Med [Amlodipine-Olmesartan 5-20 Mg] PO DAILY [facility] Imaging - Results Chest X-ray: Image Reviewed Ultrasound: Pending EKG: Image Reviewed Problem List - Problems (1) Acute on chronic diastolic (congestive) heart failure Assessment/Plan: Continue Cardiac monitoring BNP 2260 Chest Xray image- cardiomegaly, vascular congestion Given Lasix IV, will continue Strict INOs Daily weights Monitor renal function Appreciate Cardiology consult Last Echo 07/25/17- normal biventricular size and fxn, mild mr, pr ETT 06/20/16- No ST- segment changes suggestive of Ischemia Code(s): I50.33 - ACUTE ON CHRONIC DIASTOLIC (CONGESTIVE) HEART FAILURE (2) SOB (shortness of breath) Assessment/Plan: See above Code(s): R06.02 - SHORTNESS OF BREATH (3) Abdominal distension Assessment/Plan: Likely secondary to CHF vs Cirrhosis US- Ascites- small amount of free fluid/ascites in the 4 quadrants Will order Acute Hepatitis Panel, Hep C panel Appreciate GI consult Appreciate IR consult NPO Monitor CBC, BMP, LFTs Code(s): R14.0 - ABDOMINAL DISTENSION (GASEOUS) (4) Lower extremity edema Assessment/Plan: Likely secondary to HF vs DVT Wells Score 2 US- neg DVT bilateral extremities Lasix given in ED, will continue Strict INOs Daily weights Elevate extremities Code(s): R60.0 - LOCALIZED EDEMA (5) Coronary artery disease Assessment/Plan: stable EKG- NSR with RBBB, no change compared to prior study Troponin- neg Continue home meds Code(s): I25.10 - ATHSCL HEART DISEASE OF [place] CORONARY ARTERY W/O ANG PCTRS Qualifiers: Coronary Disease-Associated Artery/Lesion type: [place] artery [place] vs. transplanted heart: [place] heart Associated angina: without angina Qualified Code(s): I25.10 - Atherosclerotic heart disease of [place] coronary artery without angina pectoris (6) Peripheral artery disease Assessment/Plan: s/p stent Continue Plavix Code(s): I73.9 - PERIPHERAL VASCULAR DISEASE, UNSPECIFIED (7) Type 2 diabetes mellitus Assessment/Plan: stable BGMs HgbA1c in am Hold home meds for now secondary to NPO for abdominal distention Code(s): E11.9 - TYPE 2 DIABETES MELLITUS WITHOUT COMPLICATIONS Qualifiers: Diabetes mellitus terminal carman insulin use: without terminal carman use Diabetes mellitus complication status: without complication Qualified Code(s): E11.9 - Type 2 diabetes mellitus without complications (8) History of left common carotid artery stent placement Code(s): Z98.890 - OTHER SPECIFIED POSTPROCEDURAL STATES; Z95.828 - PRESENCE OF OTHER VASCULAR IMPLANTS AND GRAFTS (9) Status post coronary artery stent placement Code(s): Z95.5 - PRESENCE OF CORONARY ANGIOPLASTY IMPLANT AND GRAFT (10) Status post peripheral artery angioplasty with insertion of stent Code(s): Z95.820 - PERIPHERAL VASCULAR ANGIOPLASTY STATUS W IMPLANTS AND GRAFTS Assessment/Plan This is a 63 y/o man with a PMHx of HTN, HLD, CAD s/p stent, PAD, DM. Placed in Tele Observation for Acute on Chronic Diastolic Heart Failure, SOB, Abdominal Distention for further evaluation of their emergent condition. Plan: See Problem List FEN Fluid Restriction 1L Replete lytes as indicated Low Na, Diabetic Diet DVT ppx OOB SCDs Continue Plavix Code Status: Full Code Dispo:Tele Observation Visit type - Emergency Visit Emergency Visit: Yes ED Registration Date: 06/29/18 Care time: The patient presented to the Emergency Department on the above date and was hospitalized for further evaluation of their emergent condition. - New Patient This patient is new to me today: Yes Date on this admission: 06/29/18 - Critical Care Critical Care patient: No
[2018-06-30] MEDS ORDERED: PNEUMOC 13-VAL CONJ-DIP CRM/PF 0.5 ML DISP.SYRIN IM ONE (02:48)
[2018-06-30 02:49] VITALS: BMI 35.4
[2018-06-30] MEDS: FUROSEMIDE 40 MG/4 ML INJECTABLE VIAL IVPUSH SCH ×2 (06:23→14:02)
[2018-06-30 07:51] LABS: ALBUMIN 2.9 g/dl (3.4-5.0); ALK PHOS 61 U/L (45-117); ANION GAP 7 MMOL/L (8-16); BILIRUBIN,TOTAL 0.2 mg/dL (0.2-1); BLOOD UREA NITROGEN 30 mg/dL (7-18); CALCIUM 7.8 mg/dL (8.5-10.1); CHLORIDE 104 mmol/L (98-107); CO2 26 mmol/L (21-32); CREATININE 1.3 mg/dL (0.55-1.3); GLUCOSE,RANDOM 257 mg/dL (74-106); POTASSIUM 4.5 mmol/L (3.5-5.1); SGOT/AST 11 U/L (15-37); SGPT/ALT 22 U/L (13-61); SODIUM 137 mmol/L (136-145); TOT PROT 5.9 g/dl (6.4-8.2)
[2018-06-30 08:02] LABS: INR 0.97 (0.83-1.09); PROTHROMBIN TIME (PATIENT) 11.5 SEC (9.7-13.0)
[2018-06-30 08:39] LABS: EOS % 2.3 % (0-4.5); HEMATOCRIT 28.7 % (35.4-49); HEMOGLOBIN 9.9 GM/dL (11.7-16.9); LYMPH % 26.6 % (8-40); MCHC 34.6 g/dl (32.0-35.9); MEAN CELL VOLUME 83.8 fl (80-96); MEAN PLT VOLUME 8.3 fl (7.5-11.1); NEUT % 63.1 % (42.8-82.8); PLATELET COUNT 232 K/MM3 (134-434); RBC 3.43 M/mm3 (4.00-5.60); RDW 13.7 % (11.9-15.9); WHITE BLOOD COUNT 5.8 K/mm3 (4.0-10.0)
--- NOTE | 2018-06-30 09:42 | EKG ---
Test Reason : Blood Pressure : / mmHG Vent. Rate : 081 BPM Atrial Rate : 081 BPM P-R Int : 164 ms QRS Dur : 144 ms QT Int : 458 ms P-R-T Axes : 052 074 003 degrees QTc Int : 532 ms NORMAL SINUS RHYTHM RIGHT BUNDLE BRANCH BLOCK ABNORMAL ECG WHEN COMPARED WITH ECG OF 21-JUN-2018 03:23, NO SIGNIFICANT CHANGE WAS FOUND Confirmed by ARIE WADDELL MD ([id number]) on 06/30/2018 9:41:51 AM Referred By: Confirmed By:ARIE WADDELL MD
[2018-06-30] MEDS: VALSARTAN 160 MG TABLET (UD) PO SCH (09:45)
[2018-06-30] MEDS: NEBIVOLOL 5 MG TABLET (FP) PO SCH (09:45)
[2018-06-30] MEDS: CLOPIDOGREL BISULFATE 75 MG TABLET (FP) PO SCH (09:45)
[2018-06-30] MEDS: amLODIPine BESYLATE 5 MG TABLET (FP) PO SCH (09:45)
[2018-06-30] MEDS ORDERED: PATIENT'S OWN MEDICATION (NON-FORMULARY) (Amlodipine Bes/Olmesartan Med [Amlodipine-Olmesa PO SCH (10:00)
[2018-06-30] MEDS ORDERED: PNEUMOCOCCAL 23 VACCINE 0.5 ML VIAL IM ONE (10:00)
--- NOTE | 2018-06-30 12:42 | PN ---
Progress Note, Physician Chief Complaint: Worsening SOB CHF History of Present Illness: Previous events and notes appreciated awake and alert NAD denies chest pain states SOB is improving vascular study B/L lower extremity: DVT neg - Current Medication List Current Medications: Active Medications Amlodipine Besylate (Norvasc -) 5 mg PO DAILY [facility] Last Admin: 06/30/18 09:45 Dose: 5 mg Clopidogrel Bisulfate (Plavix -) 75 mg PO DAILY [facility] Last Admin: 06/30/18 09:45 Dose: 75 mg Furosemide (Lasix Injection -) 40 mg IVPUSH BID@0600,1400 [facility] Last Admin: 06/30/18 06:23 Dose: 40 mg Nebivolol (Bystolic -) 5 mg PO DAILY [facility] Last Admin: 06/30/18 09:45 Dose: 5 mg Valsartan (Diovan -) 160 mg PO DAILY [facility] Last Admin: 06/30/18 09:45 Dose: 160 mg - Objective Vital Signs: Vital Signs Temperature 98.3 F 06/30/18 10:00 Pulse Rate 82 06/30/18 10:00 Respiratory Rate 20 06/30/18 10:00 Blood Pressure 144/77 06/30/18 10:00 O2 Sat by Pulse Oximetry (%) 100 06/30/18 09:00 Constitutional: Yes: Well Nourished, No Distress, Calm Eyes: Yes: Conjunctiva Clear HENT: Yes: Atraumatic Neck: Yes: Supple Cardiovascular: Yes: Regular Rate and Rhythm Respiratory: Yes: Regular, CTA Bilaterally Gastrointestinal: Yes: Normal Bowel Sounds, Soft, Ascites Musculoskeletal: Yes: WNL Extremities: Yes: WNL Edema: Yes Edema: LLE: 2+, RLE: 2+ Integumentary: Yes: WNL Neurological: Yes: Alert, Oriented Psychiatric: Yes: Alert, Oriented Labs: CBC, BMP 06/30/18 05:30 06/30/18 05:30 INR, PTT INR 0.97 (0.83-1.09) 06/30/18 07:04 - ....Imaging Chest X-ray: Report Reviewed Ultrasound: Report Reviewed EKG: Report Reviewed <Pam Caputo - Last Filed: 06/30/18 12:36> - Current Medication List Current Medications: Active Medications Amlodipine Besylate (Norvasc -) 5 mg PO DAILY [facility] Last Admin: 06/30/18 09:45 Dose: 5 mg Clopidogrel Bisulfate (Plavix -) 75 mg PO DAILY [facility] Last Admin: 06/30/18 09:45 Dose: 75 mg Furosemide (Lasix Injection -) 40 mg IVPUSH BID@0600,1400 [facility] Last Admin: 06/30/18 14:02 Dose: 40 mg Nebivolol (Bystolic -) 5 mg PO DAILY [facility] Last Admin: 06/30/18 09:45 Dose: 5 mg Valsartan (Diovan -) 160 mg PO DAILY [facility] Last Admin: 06/30/18 09:45 Dose: 160 mg - Objective Vital Signs: Vital Signs Temperature 98.3 F 06/30/18 10:00 Pulse Rate 82 06/30/18 10:00 Respiratory Rate 20 06/30/18 10:00 Blood Pressure 144/77 06/30/18 10:00 O2 Sat by Pulse Oximetry (%) 100 06/30/18 09:00 Labs: CBC, BMP 06/30/18 05:30 06/30/18 05:30 INR, PTT INR 0.97 (0.83-1.09) 06/30/18 07:04 <Broderick Thapa - Last Filed: 06/30/18 14:50> Problem List - Problems (1) Abdominal distension Code(s): R14.0 - ABDOMINAL DISTENSION (GASEOUS) (2) Acute on chronic diastolic (congestive) heart failure Code(s): I50.33 - ACUTE ON CHRONIC DIASTOLIC (CONGESTIVE) HEART FAILURE (3) SOB (shortness of breath) Code(s): R06.02 - SHORTNESS OF BREATH (4) Type 2 diabetes mellitus Code(s): E11.9 - TYPE 2 DIABETES MELLITUS WITHOUT COMPLICATIONS Qualifiers: Diabetes mellitus jail insulin use: without regional intermodal truck driver use Diabetes mellitus complication status: without complication Qualified Code(s): E11.9 - Type 2 diabetes mellitus without complications <Pam Caputo - Last Filed: 06/30/18 12:36> Assessment/Plan -pending cardiology consult -cont tele monitoring -echo performed, results pending -cont with Lasix IVP BID -BMP elev, will cont to monitor for downward trend -GI consult pending due to ascites -will monitor and trend renal function and electrolytes due to diuretic use -daily weights -1L fluid restriction, strict I&O -DVT ppx -Low Na diet <Pam Caputo - Last Filed: 06/30/18 12:36> PATIENT SEEN AND EXAMINED AND I AGREE WITH THE ABOVE NOTE <Broderick Thapa - Last Filed: 06/30/18 14:50>
--- NOTE | 2018-06-30 14:23 | CON.GI ---
Consult Consult Specialty:: GI Referred by:: medicine Reason for Consultation:: ascites - History of Present Illness Chief Complaint: SOB History of Present Illness: 63M with h/o CHF with diastolic dysfunction, CAD, ? h/o HBV per pt, presenting for evaluation of worsening SOB. Being diuresed for presumed heart failure exacerbation. GI consulted for small ascites seen on US. Patient reports ? h/o HBV per his PMD. Reports has appt with liver doctor across the street in two weeks. Denies risk factors for viral hepatitis. No significant ETOH hx. No new medications. He reports that his abdomen has gotten bigger and it feels like a drum. No N/V, tolerating PO well. - Past Medical History Cardio/Vascular: Yes: CAD, CHF, HTN, Hyperlipdemia Endocrine: Yes: Diabetes Mellitus - Past Surgical History Past Surgical History: Yes: Stent - Alcohol/Substance Use Hx Alcohol Use: No History of Substance Use: reports: None - Smoking History Smoking history: Former smoker Have you smoked in the past 12 months: No Aproximately how many cigarettes per day: 0 If you are a former smoker, when did you quit?: 08/08/2012 - Social History ADL: Independent History of Recent Travel: No Home Medications - Allergies Allergies/Adverse Reactions: Allergies Allergy/AdvReac Type Severity Reaction Status Date / Time No Known Drug Allergies Allergy Verified 06/29/18 16:15 - Home Medications Home Medications: Ambulatory Orders Amlodipine Bes/Olmesartan Med [Amlodipine-Olmesartan 5-20 mg] 1 each PO DAILY Atorvastatin Ca [Lipitor] 40 mg PO HS 06/21/18 Clopidogrel Bisulfate [Plavix] 75 mg PO DAILY 06/21/18 Nebivolol [Bystolic -] 5 mg PO DAILY 06/21/18 Sitagliptin Phos/Metformin HCl [Janumet 50-1,000 mg Tablet] 1 each PO BID Furosemide [Lasix] 20 mg PO DAILY 06/29/18 Family Disease History - Family Disease History Family Disease History: Diabetes: Mother, Heart Disease: Brother, CA: Father ( Prostate) Review of Systems - Review of Systems Constitutional: reports: No Symptoms Eyes: reports: No Symptoms Cardiovascular: reports: Chest Pain, Edema, Shortness of Breath Respiratory: reports: SOB on Exertion Gastrointestinal: reports: Bloating Musculoskeletal: reports: No Symptoms Integumentary: reports: No Symptoms Neurological: reports: No Symptoms Psychiatric: reports: No Symptoms Physical Exam-GI Vital Signs: Vital Signs Temperature 98.3 F 06/30/18 10:00 Pulse Rate 82 06/30/18 10:00 Respiratory Rate 20 06/30/18 10:00 Blood Pressure 144/77 06/30/18 10:00 O2 Sat by Pulse Oximetry (%) 100 06/30/18 09:00 Constitutional: Yes: Well Nourished, No Distress Eyes: Yes: WNL, Conjunctiva Clear Cardiovascular: Yes: Regular Rate and Rhythm Respiratory: Yes: CTA Bilaterally Gastrointestinal Inspection: Yes: WNL ...Auscultate: Yes: Normoactive Bowel Sounds ...Palpate: Yes: Soft, Other (No fluid wave Mild distension/tympany). No: Tenderness ...Rectal Exam: Yes: Deferred Edema: Yes Edema: LLE: 2+, RLE: 2+ Integumentary: Yes: WNL Neurological: Yes: WNL, Other (No asterixis) Labs: CBC, BMP 06/30/18 05:30 06/30/18 05:30 INR, PTT INR 0.97 (0.83-1.09) 06/30/18 07:04 BNP 2260 Normal LFTs Imaging - Results Ultrasound: Report Reviewed Assessment/Plan Abdominal distension - minimal ascites seen on US and liver and spleen unremarkable. Normal LFTs. With elevated BNP, suspect ascites is heart failure related. Doesn't seem to be a significant enough amount to tap. - patient reports ? 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
--- NOTE | 2018-06-30 15:17 | CON.CARD ---
Consult Consult Specialty:: Cardiology Referred by:: Elier Reason for Consultation:: sob - History of Present Illness Chief Complaint: sob History of Present Illness: 63M with h/o diastolic dysfunction, CAD, Carotid stenosis s/p stent, PAD, ? h/o HBV per pt, presenting for evaluation of worsening SOB. 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 No chest pain, palps, orthopnea or PND. +Ascites and edema. Echo 06/30/18 nlef no change. - History Source History Provided By: Patient, Family Member, Medical Record - Past Medical History Cardio/Vascular: Yes: CAD, CHF, HTN, Hyperlipdemia Endocrine: Yes: Diabetes Mellitus - Past Surgical History Past Surgical History: Yes: Stent - Alcohol/Substance Use Hx Alcohol Use: No History of Substance Use: reports: None - Smoking History Smoking history: Former smoker Have you smoked in the past 12 months: No Aproximately how many cigarettes per day: 0 If you are a former smoker, when did you quit?: 08/08/2012 - Social History ADL: Independent History of Recent Travel: No Home Medications - Allergies Allergies/Adverse Reactions: Allergies Allergy/AdvReac Type Severity Reaction Status Date / Time No Known Drug Allergies Allergy Verified 06/29/18 16:15 - Home Medications Home Medications: Ambulatory Orders Amlodipine Bes/Olmesartan Med [Amlodipine-Olmesartan 5-20 mg] 1 each PO DAILY Atorvastatin Ca [Lipitor] 40 mg PO HS 06/21/18 Clopidogrel Bisulfate [Plavix] 75 mg PO DAILY 06/21/18 Nebivolol [Bystolic -] 5 mg PO DAILY 06/21/18 Sitagliptin Phos/Metformin HCl [Janumet 50-1,000 mg Tablet] 1 each PO BID Furosemide [Lasix] 20 mg PO DAILY 06/29/18 Family Disease History - Family Disease History Family Disease History: Diabetes: Mother, Heart Disease: Brother, CA: Father ( Prostate) Vital Signs: Vital Signs Temperature 98.3 F 06/30/18 10:00 Pulse Rate 82 06/30/18 10:00 Respiratory Rate 20 06/30/18 10:00 Blood Pressure 144/77 06/30/18 10:00 O2 Sat by Pulse Oximetry (%) 100 06/30/18 09:00 Constitutional: Yes: No Distress Eyes: Yes: Conjunctiva Clear, EOM Intact HENT: Yes: Atraumatic, Normocephalic Neck: Yes: Trachea Midline Respiratory: Yes: CTA Bilaterally Gastrointestinal: Yes: Normal Bowel Sounds, Abdomen, Obese, Ascites Cardiovascular: Yes: Regular Rate and Rhythm JVD: No Carotid Bruit: No PMI: Non-Displaced Heart Sounds: Yes: S1, S2 Extremities: Yes: WNL Edema: Yes Edema: LLE: 1+, RLE: 1+ Peripheral Pulses WNL: Yes - Other Data Labs, Other Data: CBC, BMP 06/30/18 05:30 06/30/18 05:30 INR, PTT INR 0.97 (0.83-1.09) 06/30/18 07:04 Troponin, BNP 06/29/18 06/30/18 06/30/18 17:35 02:09 05:30 Troponin I 0.03 0.02 0.02 B-Natriuretic Peptide 2260.4 H Troponin, BNP 06/29/18 06/30/18 06/30/18 17:35 02:09 05:30 Troponin I 0.03 0.02 0.02 B-Natriuretic Peptide 2260.4 H Imaging - Results Chest X-ray: Report Reviewed EKG: Report Reviewed Assessment/Plan 63M with h/o diastolic dysfunction, CAD, Carotid stenosis s/p stent, PAD, ? h/o HBV per pt, presenting for evaluation of worsening SOB. 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 No chest pain, palps, orthopnea or PND. +Ascites and edema. Echo 06/30/18 nlef no change. --doubt CHF as a cause of his ascites. His transaminases are normal but his liver synthetic function is decreased with hypoalbuminemia. Needs eval to rule out liver or renal disease. --add spironolactone 25 mg bid. --follow with primary cemetery workers supervisor.
[2018-06-30] MEDS: INSULIN SLIDING SCALE (NOVOLOG) 1 VIAL SQ SCH ×2 (17:13→22:37)
[2018-06-30] MEDS: SPIRONOLACTONE 25 MG TABLET (FP) PO SCH (22:36)
[2018-06-30] MEDS: INSULIN (LEVEMIR) 100 UNITS/ML UNITS SQ SCH (22:36)
[2018-07-01 03:18] LABS: HEP.C VIRUS AB <0.1 s/co ratio (0.0-0.9)
[2018-07-01] MEDS: FUROSEMIDE 40 MG/4 ML INJECTABLE VIAL IVPUSH SCH ×2 (05:58→14:20)
[2018-07-01] MEDS: INSULIN SLIDING SCALE (NOVOLOG) 1 VIAL SQ SCH ×4 (06:04→21:42)
[2018-07-01 06:58] LABS: HEMATOCRIT 32.5 % (35.4-49); HEMOGLOBIN 10.4 GM/dL (11.7-16.9); MCH 27.1 pg (25.7-33.7); MEAN CELL VOLUME 84.7 fl (80-96); MEAN PLT VOLUME 8.4 fl (7.5-11.1); PLATELET COUNT 254 K/MM3 (134-434); RBC 3.83 M/mm3 (4.00-5.60); RDW 13.6 % (11.9-15.9); WHITE BLOOD COUNT 6.7 K/mm3 (4.0-10.0)
[2018-07-01 07:17] LABS: ALBUMIN 3.3 g/dl (3.4-5.0); ALK PHOS 66 U/L (45-117); ANION GAP 7 MMOL/L (8-16); BILIRUBIN,TOTAL 0.3 mg/dL (0.2-1); BLOOD UREA NITROGEN 28 mg/dL (7-18); CALCIUM 8.2 mg/dL (8.5-10.1); CHLORIDE 104 mmol/L (98-107); CO2 27 mmol/L (21-32); CREATININE 1.3 mg/dL (0.55-1.3); GLUCOSE,RANDOM 148 mg/dL (74-106); POTASSIUM 4.7 mmol/L (3.5-5.1); SGOT/AST 11 U/L (15-37); SGPT/ALT 23 U/L (13-61); SODIUM 138 mmol/L (136-145); TOT PROT 6.6 g/dl (6.4-8.2)
[2018-07-01] MEDS: NEBIVOLOL 5 MG TABLET (FP) PO SCH (10:25)
[2018-07-01] MEDS: VALSARTAN 160 MG TABLET (UD) PO SCH (10:25)
[2018-07-01] MEDS: CLOPIDOGREL BISULFATE 75 MG TABLET (FP) PO SCH (10:25)
[2018-07-01] MEDS: SPIRONOLACTONE 25 MG TABLET (FP) PO SCH ×2 (10:25→21:39)
[2018-07-01] MEDS: amLODIPine BESYLATE 5 MG TABLET (FP) PO SCH (10:25)
--- NOTE | 2018-07-01 10:59 | PN ---
Progress Note, Physician Chief Complaint: Worsening SOB CHF Ascites History of Present Illness: Previous events and notes appreciated awake and alert, ambulating up and down hallway NAD denies chest pain or SOB complain of experiencing panic attacks at night - Current Medication List Current Medications: Active Medications Amlodipine Besylate (Norvasc -) 5 mg PO DAILY [facility] Last Admin: 07/01/18 10:25 Dose: 5 mg Clopidogrel Bisulfate (Plavix -) 75 mg PO DAILY [facility] Last Admin: 07/01/18 10:25 Dose: 75 mg Furosemide (Lasix Injection -) 40 mg IVPUSH BID@0600,1400 [facility] Last Admin: 07/01/18 05:58 Dose: 40 mg Insulin Aspart (Novolog Vial Sliding Scale -) 1 vial SQ [facility]; Protocol Last Admin: 07/01/18 06:04 Dose: Not Given Insulin Detemir (Levemir Vial) 25 units SQ [facility] Last Admin: 06/30/18 22:36 Dose: 25 units Nebivolol (Bystolic -) 5 mg PO DAILY [facility] Last Admin: 07/01/18 10:25 Dose: 5 mg Non-Formulary Medication (Patient's Own Med) 1 each PO BID [facility] Spironolactone (Aldactone -) 25 mg PO BID [facility] Last Admin: 07/01/18 10:25 Dose: 25 mg Valsartan (Diovan -) 160 mg PO DAILY [facility] Last Admin: 07/01/18 10:25 Dose: 160 mg - Objective Vital Signs: Vital Signs Temperature 98 F 07/01/18 10:00 Pulse Rate 86 07/01/18 10:00 Respiratory Rate 20 07/01/18 10:00 Blood Pressure 156/80 07/01/18 10:00 O2 Sat by Pulse Oximetry (%) 96 07/01/18 09:00 Constitutional: Yes: Well Nourished, No Distress, Calm Eyes: Yes: Conjunctiva Clear Neck: Yes: Supple Cardiovascular: Yes: Regular Rate and Rhythm Respiratory: Yes: Regular, CTA Bilaterally Gastrointestinal: Yes: Normal Bowel Sounds, Soft, Ascites Musculoskeletal: Yes: WNL Extremities: Yes: WNL Edema: Yes Edema: LLE: Trace, RLE: 1+ Integumentary: Yes: WNL Neurological: Yes: Alert, Oriented Psychiatric: Yes: Alert, Oriented Labs: CBC, BMP 07/01/18 05:30 07/01/18 05:30 INR, PTT INR 0.97 (0.83-1.09) 06/30/18 07:04 - ....Imaging Other: Pending (Echocardiogram) <Pam Caputo Urmila - Last Filed: 07/01/18 10:53> - Current Medication List Current Medications: Active Medications Amlodipine Besylate (Norvasc -) 5 mg PO DAILY [facility] Last Admin: 07/01/18 10:25 Dose: 5 mg Clonazepam (Klonopin -) 0.5 mg PO HS [facility] Last Admin: 07/01/18 21:38 Dose: 0.5 mg Clopidogrel Bisulfate (Plavix -) 75 mg PO DAILY [facility] Last Admin: 07/01/18 10:25 Dose: 75 mg Furosemide (Lasix Injection -) 40 mg IVPUSH BID@0600,1400 [facility] Last Admin: 07/02/18 06:33 Dose: 40 mg Insulin Aspart (Novolog Vial Sliding Scale -) 1 vial SQ [facility]; Protocol Last Admin: 07/02/18 06:30 Dose: Not Given Insulin Detemir (Levemir Vial) 25 units SQ HS [facility] Last Admin: 07/01/18 21:43 Dose: 25 units Insulin Detemir (Levemir Vial) 10 units SQ AM [facility] Last Admin: 07/02/18 06:31 Dose: 10 units Nebivolol (Bystolic -) 5 mg PO DAILY [facility] Last Admin: 07/01/18 10:25 Dose: 5 mg Non-Formulary Medication (Patient's Own Med) 1 each PO BID [facility] Spironolactone (Aldactone -) 25 mg PO BID [facility] Last Admin: 07/01/18 21:39 Dose: 25 mg Valsartan (Diovan -) 160 mg PO DAILY [facility] Last Admin: 07/01/18 10:25 Dose: 160 mg - Objective Vital Signs: Vital Signs Temperature 98 F 07/02/18 05:00 Pulse Rate 75 07/02/18 05:00 Respiratory Rate 18 07/02/18 05:00 Blood Pressure 143/70 07/02/18 05:00 O2 Sat by Pulse Oximetry (%) 97 07/01/18 21:00 Labs: CBC, BMP 07/01/18 05:30 07/01/18 05:30 INR, PTT INR 0.97 (0.83-1.09) 06/30/18 07:04 <Broderick Thapa - Last Filed: 07/02/18 07:02> Problem List - Problems (1) Abdominal distension Code(s): R14.0 - ABDOMINAL DISTENSION (GASEOUS) (2) Acute on chronic diastolic (congestive) heart failure Code(s): I50.33 - ACUTE ON CHRONIC DIASTOLIC (CONGESTIVE) HEART FAILURE (3) SOB (shortness of breath) Code(s): R06.02 - SHORTNESS OF BREATH (4) Type 2 diabetes mellitus Code(s): E11.9 - TYPE 2 DIABETES MELLITUS WITHOUT COMPLICATIONS Qualifiers: Diabetes mellitus retirement insulin use: without termite control technician use Diabetes mellitus complication status: without complication Qualified Code(s): E11.9 - Type 2 diabetes mellitus without complications <Pam Caputo - Last Filed: 07/01/18 10:53> Assessment/Plan -cardiology recommendation appreciated -cont tele monitoring -echo performed, results pending -cont with Lasix IVP BID, spironolactone 25mg BID added to regimen -BNP trending down but still elev, will cont to monitor downward trend -HgA1c 13.1-endo consult -ascites-no need for tap presently, monitor for increased distention -mild distention of abdomen will order abd xray if begin to not tolerate PO -chronic liver work up pending -will monitor and trend renal function and electrolytes due to diuretic use -daily weights -1L fluid restriction, strict I&O -DVT ppx -Low Na/diabetic diet -psych consult due to panic attacks <Pam Caputo - Last Filed: 07/01/18 10:53> PATIENT SEEN AND EXAMINED AND I AGREE WITH ABOVE NOTE <Broderick Thapa - Last Filed: 07/02/18 07:02>
--- NOTE | 2018-07-01 14:53 | CON.PSY ---
Psychiatry Consult Chief Complaint: 63 year old male with acute Pulmonary illness and been having anxiety attackd due to fullness in Chest. Feeling acute panicky feeling at night. Symptoms: reports: Anxiety - Previous Psychiatric Treatment Outpatient: None Inpatient: None - Previous Substance Abuse Treatment Outpatient: None Inpatient: None - Reason for Previous Treatment Reason for Previous Treatment: Anxiety or Panic Disorder - Current Medications Current Medications: Active Medications Amlodipine Besylate (Norvasc -) 5 mg PO DAILY [facility] Last Admin: 07/01/18 10:25 Dose: 5 mg Clopidogrel Bisulfate (Plavix -) 75 mg PO DAILY [facility] Last Admin: 07/01/18 10:25 Dose: 75 mg Furosemide (Lasix Injection -) 40 mg IVPUSH BID@0600,1400 [facility] Last Admin: 07/01/18 14:20 Dose: 40 mg Insulin Aspart (Novolog Vial Sliding Scale -) 1 vial SQ [facility]; Protocol Last Admin: 07/01/18 12:33 Dose: 2 units Insulin Detemir (Levemir Vial) 25 units SQ HS [facility] Last Admin: 06/30/18 22:36 Dose: 25 units Nebivolol (Bystolic -) 5 mg PO DAILY [facility] Last Admin: 07/01/18 10:25 Dose: 5 mg Non-Formulary Medication (Patient's Own Med) 1 each PO BID [facility] Spironolactone (Aldactone -) 25 mg PO BID [facility] Last Admin: 07/01/18 10:25 Dose: 25 mg Valsartan (Diovan -) 160 mg PO DAILY [facility] Last Admin: 07/01/18 10:25 Dose: 160 mg - Allergies Allergies: Allergies Allergy/AdvReac Type Severity Reaction Status Date / Time No Known Drug Allergies Allergy Verified 06/29/18 16:15 - Current Living Status Usual Living Arrangement: With Spouse - Current Mental Status Evaluation Appearance: Well Groomed Attitude: Cooperative - Affect Affect: Constrictive Appropriateness: Appropriate to Content - Mood Mood: Anxious - Speech/Language Expressive: Coherent - Psychomotor Activity Psychomotor Activity: Normal - Thought Process Thought Process: Intact - Thought Content Hallucinations: Absent Delusions: Absent - Self Perception Self Perception: No Impairment - Cognition Attention: Alert Orientation: Time Memory, Immediate Recall: Intact Memory, Short Term: 3/3 Memory, Remote with Promptin/3 - Concentration Serial Sevens Intact: Yes Simple Calculations Intact: Yes - Abstraction Proverb Interpretation: Intact - Insight Insight: Intact - Impulse Control Impulse Control: Good Control - Suicidal Ideation Suicidal Ideation: No - Homicidal Ideation Homicidal Ideation: No Problem List - Problems (1) Anxiety Code(s): F41.9 - ANXIETY DISORDER, UNSPECIFIED Assessment/Plan 1) Klonaoin 0.5g po hs for anxiety.
[2018-07-01] MEDS: clonazePAM 0.5 MG TABLET PO SCH (21:38)
[2018-07-01] MEDS: INSULIN (LEVEMIR) 100 UNITS/ML UNITS SQ SCH (21:43)
--- NOTE | 2018-07-01 23:10 | CONSULT ---
Consult Consult Specialty:: endocrine Referred by:: dr.rabadi black Reason for Consultation:: dm 2 hyperglycemia - History of Present Illness Chief Complaint: high blood sugars diet not compliant History of Present Illness: 63 y/o man with a significant medical history of DM2, Morbid obesity,HTN, HLD, CAD s/p Stent(2012). Diastolic Dysfunction, PAD s/p L SFA [place] Stent, L Carotid Stenting, Hepatitis B. Who presents to the ED with increased SOB x several weeks, LE edema. Has elevated blood sugars,takes insulin dose once a day relies on occasional bgm,diet non compliant. - History Source History Provided By: Patient - Past Medical History Cardio/Vascular: Yes: CAD, CHF, HTN, Hyperlipdemia, Other (PAD) Hepatobiliary: Yes: Hepatitis B Endocrine: Yes: Diabetes Mellitus - Past Surgical History Past Surgical History: Yes: Stent - Alcohol/Substance Use Hx Alcohol Use: No History of Substance Use: reports: None - Smoking History Smoking history: Former smoker Have you smoked in the past 12 months: No Aproximately how many cigarettes per day: 0 (Hookah) If you are a former smoker, when did you quit?: 08/08/2012 - Social History Usual Living Arrangement: With Spouse ADL: Independent History of Recent Travel: No Home Medications - Allergies Allergies/Adverse Reactions: Allergies Allergy/AdvReac Type Severity Reaction Status Date / Time No Known Drug Allergies Allergy Verified 06/29/18 16:15 - Home Medications Home Medications: Ambulatory Orders Amlodipine Bes/Olmesartan Med [Amlodipine-Olmesartan 5-20 mg] 1 each PO DAILY Atorvastatin Ca [Lipitor] 40 mg PO HS 06/21/18 Clopidogrel Bisulfate [Plavix] 75 mg PO DAILY 06/21/18 Nebivolol [Bystolic -] 5 mg PO DAILY 06/21/18 Sitagliptin Phos/Metformin HCl [Janumet 50-1,000 mg Tablet] 1 each PO BID Furosemide [Lasix] 20 mg PO DAILY 06/29/18 Family Disease History - Family Disease History Family Disease History: Diabetes: Mother, Heart Disease: Brother, CA: Father ( Prostate) Review of Systems - Review of Systems Constitutional: reports: Lethargy, Weakness Eyes: reports: Blurred Vision HENT: reports: Difficult Swallowing Neck: reports: Decreased ROM Cardiovascular: reports: Shortness of Breath Respiratory: reports: Exercise Intolerance Gastrointestinal: reports: Constipation Genitourinary: reports: No Symptoms Breasts: reports: No Symptoms Reported Musculoskeletal: reports: Joint Pain, Muscle Pain, Muscle Cramps, Muscle Weakness Integumentary: reports: No Symptoms Neurological: reports: Weakness Endocrine: reports: Unexplained Weight Loss Physical Exam Vital Signs: Vital Signs Temperature 98.5 F 07/01/18 17:00 Pulse Rate 78 07/01/18 17:00 Respiratory Rate 20 07/01/18 17:00 Blood Pressure 143/76 07/01/18 17:00 O2 Sat by Pulse Oximetry (%) 96 07/01/18 09:00 Constitutional: Yes: Anxious Eyes: Yes: EOM Intact HENT: Yes: Normocephalic Neck: Yes: Trachea Midline Cardiovascular: Yes: Regular Rate and Rhythm, Tachycardia Respiratory: Yes: Tachypnea Gastrointestinal: Yes: Normal Bowel Sounds ...Rectal Exam: Yes: Deferred Renal/: Yes: WNL Musculoskeletal: Yes: WNL, Joint Stiffness, Muscle Pain Extremities: Yes: WNL Edema: Yes Edema: LLE: 2+, RLE: 1+ Integumentary: Yes: Venous Stasis Changes Neurological: Yes: Alert, Oriented Labs: CBC, BMP 07/01/18 05:30 07/01/18 05:30 Problem List - Problems (1) Abdominal distension Code(s): R14.0 - ABDOMINAL DISTENSION (GASEOUS) (2) Anxiety Code(s): F41.9 - ANXIETY DISORDER, UNSPECIFIED (3) Lower extremity edema Code(s): R60.0 - LOCALIZED EDEMA (4) SOB (shortness of breath) Code(s): R06.02 - SHORTNESS OF BREATH (5) Bronchitis Code(s): J40 - BRONCHITIS, NOT SPECIFIED ACUTE OR CHRONIC (6) Coronary artery disease Code(s): I25.10 - ATHSCL HEART DISEASE OF [place] CORONARY ARTERY W/O ANG PCTRS Qualifiers: Coronary Disease-Associated Artery/Lesion type: [place] artery [place] vs. transplanted heart: [place] heart Associated angina: without angina Qualified Code(s): I25.10 - Atherosclerotic heart disease of [place] coronary artery without angina pectoris (7) Diabetes Code(s): E11.9 - TYPE 2 DIABETES MELLITUS WITHOUT COMPLICATIONS Qualifiers: Diabetes mellitus type: type 2 Assessment/Plan Current Active Problems Abdominal distension (Acute) Acute on chronic diastolic (congestive) heart failure (Acute) Anxiety (Acute) Lower extremity edema (Acute) SOB (shortness of breath) (Acute) diabetes mellitus hyperglycemia diabetic neuropathy ?sharda sleep apnea Abnormal Lab Results 06/29/18 07/01/18 07/01/18 05:30 05:30 05:30 RBC 3.83 L Hgb 10.4 L Hct 32.5 L Anion Gap 7 L BUN 28 H Random Glucose 148 H Calcium 8.2 L AST 11 L B-Natriuretic Peptide 1645.0 H Albumin 3.3 L Hep Bs Antigen Positive H Laboratory Results - last 24 hr 06/29/18 07/01/18 07/01/18 05:30 05:30 05:30 WBC 6.7 RBC 3.83 L Hgb 10.4 L Hct 32.5 L MCV 84.7 MCH 27.1 MCHC 32.0 RDW 13.6 Plt Count 254 MPV 8.4 Sodium 138 Potassium 4.7 Chloride 104 Carbon Dioxide 27 Anion Gap 7 L BUN 28 H Creatinine 1.3 Creat Clearance w eGFR 55.75 POC Glucometer Random Glucose 148 H Calcium 8.2 L Total Bilirubin 0.3 AST 11 L ALT 23 Alkaline Phosphatase 66 B-Natriuretic Peptide 1645.0 H Total Protein 6.6 Albumin 3.3 L Hepatitis A IgM Ab Negative Hep Bs Antigen Positive H Hep B Core IgM Ab Negative Hepatitis C Antibody <0.1 07/01/18 07/01/18 07/01/18 05:40 12:29 17:25 WBC RBC Hgb Hct MCV MCH MCHC RDW Plt Count MPV Sodium Potassium Chloride Carbon Dioxide Anion Gap BUN Creatinine Creat Clearance w eGFR POC Glucometer 170 218 113 Random Glucose Calcium Total Bilirubin AST ALT Alkaline Phosphatase B-Natriuretic Peptide Total Protein Albumin Hepatitis A IgM Ab Hep Bs Antigen Hep B Core IgM Ab Hepatitis C Antibody 07/01/18 21:19 WBC RBC Hgb Hct MCV MCH MCHC RDW Plt Count MPV Sodium Potassium Chloride Carbon Dioxide Anion Gap BUN Creatinine Creat Clearance w eGFR POC Glucometer 224 Random Glucose Calcium Total Bilirubin AST ALT Alkaline Phosphatase B-Natriuretic Peptide Total Protein Albumin Hepatitis A IgM Ab Hep Bs Antigen Hep B Core IgM Ab Hepatitis C Antibody plan: bgm qid novolog insulin levemir 25 units hs levemir 10 am sleep apnea testing as op diet nutrition consult
[2018-07-02 06:06] LABS: HEP B CORE AB, TOT Positive (Negative)
[2018-07-02] MEDS: INSULIN SLIDING SCALE (NOVOLOG) 1 VIAL SQ SCH ×4 (06:30→21:37)
[2018-07-02] MEDS: INSULIN (LEVEMIR) 100 UNITS/ML UNITS SQ SCH ×2 (06:31→21:35)
[2018-07-02] MEDS: FUROSEMIDE 40 MG/4 ML INJECTABLE VIAL IVPUSH SCH ×2 (06:33→15:17)
--- NOTE | 2018-07-02 09:30 | PN ---
Progress Note, Physician Chief Complaint: AWAKE ALERT FEELING BETTER BUT STILL WITH SOB - Current Medication List Current Medications: Active Medications Amlodipine Besylate (Norvasc -) 5 mg PO DAILY [facility] Last Admin: 07/01/18 10:25 Dose: 5 mg Clonazepam (Klonopin -) 0.5 mg PO [facility] Last Admin: 07/01/18 21:38 Dose: 0.5 mg Clopidogrel Bisulfate (Plavix -) 75 mg PO DAILY [facility] Last Admin: 07/01/18 10:25 Dose: 75 mg Furosemide (Lasix Injection -) 40 mg IVPUSH BID@0600,1400 [facility] Last Admin: 07/02/18 06:33 Dose: 40 mg Insulin Aspart (Novolog Vial Sliding Scale -) 1 vial SQ [facility]; Protocol Last Admin: 07/02/18 06:30 Dose: Not Given Insulin Detemir (Levemir Vial) 25 units SQ HS [facility] Last Admin: 07/01/18 21:43 Dose: 25 units Insulin Detemir (Levemir Vial) 10 units SQ AM [facility] Last Admin: 07/02/18 06:31 Dose: 10 units Nebivolol (Bystolic -) 5 mg PO DAILY [facility] Last Admin: 07/01/18 10:25 Dose: 5 mg Non-Formulary Medication (Patient's Own Med) 1 each PO BID [facility] Spironolactone (Aldactone -) 25 mg PO BID [facility] Last Admin: 07/01/18 21:39 Dose: 25 mg Valsartan (Diovan -) 160 mg PO DAILY [facility] Last Admin: 07/01/18 10:25 Dose: 160 mg - Objective Vital Signs: Vital Signs Temperature 98 F 07/02/18 05:00 Pulse Rate 75 07/02/18 05:00 Respiratory Rate 18 07/02/18 05:00 Blood Pressure 143/70 07/02/18 05:00 O2 Sat by Pulse Oximetry (%) 97 07/01/18 21:00 Constitutional: Yes: Mild Distress Eyes: Yes: WNL HENT: Yes: WNL Neck: Yes: WNL Cardiovascular: Yes: WNL Respiratory: Yes: Diminished, On Nasal O2, SOB Gastrointestinal: Yes: WNL, Abdomen, Obese Genitourinary: Yes: WNL Musculoskeletal: Yes: WNL Extremities: Yes: WNL Edema: Yes Integumentary: Yes: WNL Wound/Incision: Yes: Clean/Dry Neurological: Yes: WNL ...Motor Strength: WNL Psychiatric: Yes: WNL Labs: CBC, BMP 07/01/18 05:30 07/01/18 05:30 INR, PTT INR 0.97 (0.83-1.09) 06/30/18 07:04 Problem List - Problems (1) Sleep apnea Code(s): G47.30 - SLEEP APNEA, UNSPECIFIED (2) Abdominal distension Code(s): R14.0 - ABDOMINAL DISTENSION (GASEOUS) (3) Acute on chronic diastolic (congestive) heart failure Code(s): I50.33 - ACUTE ON CHRONIC DIASTOLIC (CONGESTIVE) HEART FAILURE (4) Rvkug-om-lrbwbao kidney injury Code(s): N17.9 - ACUTE KIDNEY FAILURE, UNSPECIFIED; N18.9 - CHRONIC KIDNEY DISEASE, UNSPECIFIED (5) Anxiety Code(s): F41.9 - ANXIETY DISORDER, UNSPECIFIED (6) Ascites Code(s): R18.8 - OTHER ASCITES (7) Chronic hepatitis B Code(s): B18.1 - CHRONIC VIRAL HEPATITIS B WITHOUT DELTA-AGENT (8) Lower extremity edema Code(s): R60.0 - LOCALIZED EDEMA (9) Pulmonary HTN Code(s): I27.20 - PULMONARY HYPERTENSION, UNSPECIFIED (10) 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 Code(s): E11.69 - TYPE 2 DIABETES MELLITUS WITH OTHER SPECIFIED COMPLICATION; I43 - CARDIOMYOPATHY IN DISEASES CLASSIFIED ELSEWHERE (11) Hyperlipidemia associated with type 2 diabetes mellitus Code(s): E11.69 - TYPE 2 DIABETES MELLITUS WITH OTHER SPECIFIED COMPLICATION; E78.5 - HYPERLIPIDEMIA, UNSPECIFIED (12) Peripheral artery disease Code(s): I73.9 - PERIPHERAL VASCULAR DISEASE, UNSPECIFIED (13) Status post coronary artery stent placement Code(s): Z95.5 - PRESENCE OF CORONARY ANGIOPLASTY IMPLANT AND GRAFT (14) Status post peripheral artery angioplasty with insertion of stent Code(s): Z95.820 - PERIPHERAL VASCULAR ANGIOPLASTY STATUS W IMPLANTS AND GRAFTS Assessment/Plan SLEEP APNEA SCREEN NEEDED IV LASIX 02 SUPPORT PULM/CARDIO WORKUP CHECK LABS DM CONTROL WEIGHT LOSS NUTRITION CONSULT
--- NOTE | 2018-07-02 10:02 | PN ---
GI Progress Note Subjective: patients record reviewed, asked to see patient because ascitis and history of Hepatitis B, Hep B sag is positive, titer not available - Objective Vital Signs: Vital Signs Temperature 98 F 07/02/18 05:00 Pulse Rate 75 07/02/18 05:00 Respiratory Rate 18 07/02/18 05:00 Blood Pressure 143/70 07/02/18 05:00 O2 Sat by Pulse Oximetry (%) 97 07/01/18 21:00 Constitutional: Well Nourished, No Distress, Calm Eyes: Yes: Conjunctiva Clear Neck: Yes: Supple Cardiovascular: Yes: Regular Rate and Rhythm Respiratory: Yes: Regular, CTA Bilaterally Gastrointestinal Inspection: Yes: Ascites (mild) ...Auscultate: Yes: Normoactive Bowel Sounds ...Palpate: Yes: Soft ...Percussion: Yes: Tympanitic Musculoskeletal: Yes: WNL Extremities: Yes: WNL Edema: Yes Edema: LLE: Trace, RLE: Trace Neurological: Yes: Alert, Oriented Labs: CBC, BMP 07/01/18 05:30 07/01/18 05:30 INR, PTT INR 0.97 (0.83-1.09) 06/30/18 07:04 Problem List - Problems (1) Chronic hepatitis B Assessment/Plan: R> AFP Hepatitis B quantitative titer made aware to follow up for further w/u Code(s): B18.1 - CHRONIC VIRAL HEPATITIS B WITHOUT DELTA-AGENT (2) Ascites Assessment/Plan: most likely cardiac in the absence of cirrhosis R> continue diuretics as ordered Code(s): R18.8 - OTHER ASCITES
[2018-07-02] MEDS: VALSARTAN 160 MG TABLET (UD) PO SCH (10:34)
[2018-07-02] MEDS: SPIRONOLACTONE 25 MG TABLET (FP) PO SCH ×2 (10:34→21:34)
[2018-07-02] MEDS: NEBIVOLOL 5 MG TABLET (FP) PO SCH (10:34)
[2018-07-02] MEDS: CLOPIDOGREL BISULFATE 75 MG TABLET (FP) PO SCH (10:34)
[2018-07-02] MEDS: amLODIPine BESYLATE 5 MG TABLET (FP) PO SCH (10:34)
[2018-07-02 11:10] LABS: HEMATOCRIT 32.8 % (35.4-49); HEMOGLOBIN 10.4 GM/dL (11.7-16.9); MCH 26.6 pg (25.7-33.7); MCHC 31.8 g/dl (32.0-35.9); MEAN CELL VOLUME 83.7 fl (80-96); MEAN PLT VOLUME 8.2 fl (7.5-11.1); PLATELET COUNT 237 K/MM3 (134-434); RBC 3.92 M/mm3 (4.00-5.60); RDW 13.7 % (11.9-15.9); WHITE BLOOD COUNT 6.2 K/mm3 (4.0-10.0)
[2018-07-02 11:35] LABS: ALBUMIN 3.1 g/dl (3.4-5.0); ALK PHOS 61 U/L (45-117); ANION GAP 5 MMOL/L (8-16); BILIRUBIN,TOTAL 0.3 mg/dL (0.2-1); BLOOD UREA NITROGEN 29 mg/dL (7-18); CALCIUM 8.6 mg/dL (8.5-10.1); CHLORIDE 103 mmol/L (98-107); CO2 29 mmol/L (21-32); CREATININE 1.4 mg/dL (0.55-1.3); GLUCOSE,RANDOM 180 mg/dL (74-106); POTASSIUM 4.6 mmol/L (3.5-5.1); SGOT/AST 9 U/L (15-37); SGPT/ALT 19 U/L (13-61); SODIUM 137 mmol/L (136-145); TOT PROT 6.4 g/dl (6.4-8.2)
--- NOTE | 2018-07-02 13:02 | PN ---
Progress Note (short form) - Note Progress Note: PULMONARY CONSULTATION DICTATED 07/02/18 IMP DYSPNEA ACUTE ON CHRONIC DIASTOLIC HF PULMONARY HTN DM ASCITES HTN/HCVD ASHD S/P STENTS LIKELY OSAS ACUTE ON CHRONIC KIDNEY DISEASE PLAN IV LASIX,ALDACTONE O2 NEEDED DAILY WT MONITOR LYTES,RENAL FUNCTION SLEEP SCREEN OUTPATIENT PSG CHEST CT DR UNDERWOOD Problem List - Problems (1) Bmyzd-vy-cshbiou kidney injury Code(s): N17.9 - ACUTE KIDNEY FAILURE, UNSPECIFIED; N18.9 - CHRONIC KIDNEY DISEASE, UNSPECIFIED (2) Abdominal distension Code(s): R14.0 - ABDOMINAL DISTENSION (GASEOUS) (3) Acute on chronic diastolic (congestive) heart failure Code(s): I50.33 - ACUTE ON CHRONIC DIASTOLIC (CONGESTIVE) HEART FAILURE (4) Ascites Code(s): R18.8 - OTHER ASCITES (5) Lower extremity edema Code(s): R60.0 - LOCALIZED EDEMA (6) SOB (shortness of breath) Code(s): R06.02 - SHORTNESS OF BREATH (7) Coronary artery disease Code(s): I25.10 - ATHSCL HEART DISEASE OF [place] CORONARY ARTERY W/O ANG PCTRS Qualifiers: Coronary Disease-Associated Artery/Lesion type: [place] artery [place] vs. 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
--- NOTE | 2018-07-02 13:22 | CONS ---
DATE OF CONSULTATION: DATE OF DICTATION: 07/02/2018 HISTORY OF PRESENT ILLNESS: The patient is a 63-year-old white male with past medical history of diastolic heart failure grade 2, pulmonary hypertension, hyperlipidemia, diabetes, ASHD status post stents, admitted to [facility] with complaint of 2-week history of increasing shortness of breath, dyspnea on exertion, and 4-day history of orthopnea. Patient states approximately 3 weeks prior to this admission he started developing URI symptoms. At the time he had complaints of cough productive of clear sputum and shortness of breath. He did not seek medical attention. For the past 2 weeks, according to him and his daughters, he is getting progressively short of breath and dyspneic with minimal exertion. When walking up stairs he has to stop before proceeding. For the past 4 days he has noted significant orthopnea where he is unable to breathe and has to sit up to sleep. Recently apparently his Lasix was changed to 20-40 mg, but no significant improvement in his symptoms. He presented to the emergency room with the above. Of note is he is also complaining of increased abdominal girth as well as lower extremity edema. On admission he was felt to have congestive heart failure. He was started on IV Lasix. He was evaluated by cardiology for the above. Patient has a history of smoking hookah. No history of occupational exposure to chemicals or fumes. There is no history of DVT or PE in the past. There is no history of recent travel. PAST MEDICAL HISTORY: Again includes hypertension, diastolic heart failure, pulmonary hypertension. Noted on echo on previous hospitalization with a right ventricular systolic pressure of 40 mm, hyperlipidemia, hypertension, diabetes, ASHD status post stents. REVIEW OF SYSTEMS: Positive orthopnea, positive dyspnea, positive abdominal bloating, positive lower extremity edema. No chest pain, no palpitations. Positive cough, nonproductive. CURRENT MEDICATIONS: Include Diovan, Klonopin, Bystolic, Norvasc, Levemir, Lasix, Aldactone, Plavix. PHYSICAL EXAMINATION: General: The patient is an obese male, awake, alert, in no acute distress. Vital Signs: He is currently afebrile. Heart rate is 68, blood pressure 116/65. Respiratory rate is 20. O2 saturation is 96% on room air. HEENT: Normocephalic, atraumatic. Neck: Supple. Heart: Regular, S1, S2. Chest: Diminished breath sounds bilaterally. Abdomen: Soft. Bowel sounds are positive. Extremities: Bilateral lower extremity edema 1-2+. LABORATORY: WBC is 6.2, hemoglobin 10.4, hematocrit 32.8, with a platelet count of 237,000. INR is 0.97. Chemistry: BUN at 29, creatinine 1.4. Echocardiogram: Left ventricle mildly dilated. Left ventricular systolic function normal. Ejection fraction 60% to 65%. Diastolic dysfunction grade 2. Pulmonary artery pressure at 40 mmHg. Duplex is negative for DVT. Chest x-ray: No acute infiltrates. Increased markings of the left base. IMPRESSION: 1. Dyspnea secondary to [id number] diastolic heart failure. 2. Pulmonary hypertension. 3. Arteriosclerotic heart disease status post stents. 4. Diabetes. 5. Likely obstructive sleep apnea. 6. Hypertension, hypertensive cardiovascular disease. 7. Anemia. PLAN: Supplemental O2, Lasix, daily weights, obtain outpatient sleep study. Monitor hemoglobin and hematocrit. Monitor electrolytes. CT scan of the chest and abdomen. JIMENEZ UNDERWOOD M.D. [id number]
[2018-07-02] MEDS: clonazePAM 0.5 MG TABLET PO SCH (21:35)
[2018-07-03] MEDS: clonazePAM 0.5 MG TABLET PO SCH (03:23)
[2018-07-03] MEDS: INSULIN SLIDING SCALE (NOVOLOG) 1 VIAL SQ SCH (06:02)
[2018-07-03] MEDS: INSULIN (LEVEMIR) 100 UNITS/ML UNITS SQ SCH (06:02)
[2018-07-03] MEDS: FUROSEMIDE 40 MG/4 ML INJECTABLE VIAL IVPUSH SCH (06:06)
[2018-07-03 06:41] VITALS: PULSE 80
[2018-07-03 07:16] LABS: FIBROSIS SCORE. 0.36 (0.00-0.21); HCV ALPHA 2 MACRO CHART 461 mg/dL (110-276); HCV GGT 25 IU/L (0-65); NECROINFLAM. ACTIVITY GRADE A0-No activity (.)
--- NOTE | 2018-07-03 08:58 | PN ---
GI Progress Note Subjective: Patient states feeling better. Denies abdominal pain, nausea, vomiting. - Objective Vital Signs: Vital Signs Temperature 98.1 F 07/03/18 06:00 Pulse Rate 80 07/03/18 06:00 Respiratory Rate 18 07/03/18 06:00 Blood Pressure 136/67 07/03/18 06:00 O2 Sat by Pulse Oximetry (%) 95 07/02/18 21:00 Constitutional: Well Nourished, No Distress, Calm Eyes: Yes: Conjunctiva Clear Cardiovascular: Yes: Regular Rate and Rhythm Respiratory: Yes: Regular, CTA Bilaterally Gastrointestinal Inspection: Yes: Ascites (mild) ...Auscultate: Yes: Normoactive Bowel Sounds ...Palpate: Yes: Soft ...Percussion: Yes: Tympanitic Labs: CBC, BMP 07/02/18 10:45 07/02/18 10:45 INR, PTT INR 0.97 (0.83-1.09) 06/30/18 07:04 Problem List - Problems (1) Chronic hepatitis B Code(s): B18.1 - CHRONIC VIRAL HEPATITIS B WITHOUT DELTA-AGENT (2) Ascites Code(s): R18.8 - OTHER ASCITES
[2018-07-03] MEDS: VALSARTAN 160 MG TABLET (UD) PO SCH (12:05)
[2018-07-03] MEDS: SPIRONOLACTONE 25 MG TABLET (FP) PO SCH (12:05)
[2018-07-03] MEDS: amLODIPine BESYLATE 5 MG TABLET (FP) PO SCH (12:05)
[2018-07-03] MEDS: NEBIVOLOL 5 MG TABLET (FP) PO SCH (12:06)
--- NOTE | 2018-07-03 12:16 | PN ---
Progress Note (short form) - Note Progress Note: Feels overall better. No CP. Less SOB. No acute events overnight. Intake & Output 06/30/18 07/01/18 07/02/18 07/03/18 23:59 23:59 23:59 23:59 Intake Total 578 634 7737 250 Output Total 1000 1 Balance 510 664 20 249 Weight 233 lb 8 oz 230 lb 12.8 oz 227 lb 228 lb 3.2 oz Last Vital Signs Temp Pulse Resp BP Pulse Ox 98.1 F 80 18 136/67 95 07/03/18 06:00 07/03/18 06:00 07/03/18 06:00 07/03/18 06:00 07/02/18 21:00 Active Medications Amlodipine Besylate (Norvasc -) 5 mg PO DAILY [facility] Last Admin: 07/03/18 12:05 Dose: 5 mg Clonazepam (Klonopin -) 0.5 mg PO HS [facility] Last Admin: 07/03/18 03:23 Dose: 0.5 mg Clopidogrel Bisulfate (Plavix -) 75 mg PO DAILY [facility] Last Admin: 07/02/18 10:34 Dose: 75 mg Furosemide (Lasix Injection -) 40 mg IVPUSH BID@0600,1400 [facility] Last Admin: 07/03/18 06:06 Dose: 40 mg Insulin Aspart (Novolog Vial Sliding Scale -) 1 vial SQ [facility]; Protocol Last Admin: 07/03/18 06:02 Dose: Not Given Insulin Detemir (Levemir Vial) 25 units SQ HS [facility] Last Admin: 07/02/18 21:35 Dose: 25 units Insulin Detemir (Levemir Vial) 10 units SQ AM [facility] Last Admin: 07/03/18 06:02 Dose: 10 units Nebivolol (Bystolic -) 5 mg PO DAILY [facility] Last Admin: 07/03/18 12:06 Dose: 5 mg Non-Formulary Medication (Patient's Own Med) 1 each PO BID [facility] Spironolactone (Aldactone -) 25 mg PO BID [facility] Last Admin: 07/03/18 12:05 Dose: 25 mg Valsartan (Diovan -) 160 mg PO DAILY [facility] Last Admin: 07/03/18 12:05 Dose: 160 mg Constitutional: Yes: NAD Eyes: Yes: WNL HENT: Yes: WNL Neck: Yes: WNL Cardiovascular: Yes: WNL Respiratory: Yes: Diminished at the bases Gastrointestinal: Yes: WNL, Abdomen, Obese Genitourinary: Yes: WNL Musculoskeletal: Yes: WNL Extremities: Yes: WNL Edema: Yes Integumentary: Yes: WNL Wound/Incision: Yes: Clean/Dry Neurological: Yes: WNL ...Motor Strength: WNL Psychiatric: Yes: WNL Labs: Laboratory Results - last 24 hr 06/30/18 07/02/18 07/02/18 07:04 10:45 12:14 POC Glucometer 173 Liver GGT 25 Liver Total Bilirubin 0.1 Liver Fibrosis ALT 22 Liver Haptoglobin 173 Liver Fibrosis Score 0.36 H Necroinflammator Score 0.10 Necroinflam Pat Score Necroinflammator Grade A0-no activity Apolipoprotein A-1 133 Tumor Marker AFP 1.2 Liver Fibrosis Comment Liver Fibrosis Limits Liver Fibrosis Interp 07/02/18 07/02/18 07/03/18 17:45 21:24 06:01 POC Glucometer 161 202 126 Liver GGT Liver Total Bilirubin Liver Fibrosis ALT Liver Haptoglobin Liver Fibrosis Score Necroinflammator Score Necroinflam Pat Score Necroinflammator Grade Apolipoprotein A-1 Tumor Marker AFP Liver Fibrosis Comment Liver Fibrosis Limits Liver Fibrosis Interp Problem List - Problems (1) Wnqxn-ml-sypwfmi kidney injury Code(s): N17.9 - ACUTE KIDNEY FAILURE, UNSPECIFIED; N18.9 - CHRONIC KIDNEY DISEASE, UNSPECIFIED (2) Abdominal distension Code(s): R14.0 - ABDOMINAL DISTENSION (GASEOUS) (3) Acute on chronic diastolic (congestive) heart failure Code(s): I50.33 - ACUTE ON CHRONIC DIASTOLIC (CONGESTIVE) HEART FAILURE (4) Ascites Code(s): R18.8 - OTHER ASCITES (5) Lower extremity edema Code(s): R60.0 - LOCALIZED EDEMA (6) SOB (shortness of breath) Code(s): R06.02 - SHORTNESS OF BREATH (7) Coronary artery disease Code(s): I25.10 - ATHSCL HEART DISEASE OF [place] CORONARY ARTERY W/O ANG PCTRS Qualifiers: Coronary Disease-Associated Artery/Lesion type: [place] artery [place] vs. 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 Code(s): E11.69 - TYPE 2 DIABETES MELLITUS WITH OTHER SPECIFIED COMPLICATION; I43 - CARDIOMYOPATHY IN DISEASES CLASSIFIED ELSEWHERE (9) Status post coronary artery stent placement Code(s): Z95.5 - PRESENCE OF CORONARY ANGIOPLASTY IMPLANT AND GRAFT (10) Pulmonary HTN Code(s): I27.20 - PULMONARY HYPERTENSION, UNSPECIFIED (11) Sleep apnea Code(s): G47.30 - SLEEP APNEA, UNSPECIFIED IMP DYSPNEA: RESOLVED ACUTE ON CHRONIC DIASTOLIC HF PULMONARY HTN DM ASCITES HTN/HCVD ASHD S/P STENTS LIKELY OSAS ACUTE ON CHRONIC KIDNEY DISEASE PLAN LASIX / ALDACTONE OUTPATIENT PSG NO PULMONARY CONTRAINDICATION FOR D/C DR QUINTEROS
--- NOTE | 2018-07-03 12:28 | DS ---
Physical Examination Vital Signs: Vital Signs Temperature 98.1 F 07/03/18 06:00 Pulse Rate 80 07/03/18 06:00 Respiratory Rate 18 07/03/18 06:00 Blood Pressure 136/67 07/03/18 06:00 O2 Sat by Pulse Oximetry (%) 95 07/02/18 21:00 Constitutional: Yes: Well Nourished, No Distress, Calm Eyes: Yes: Conjunctiva Clear Neck: Yes: Supple Cardiovascular: Yes: Regular Rate and Rhythm Respiratory: Yes: Regular, CTA Bilaterally Gastrointestinal: Yes: Normal Bowel Sounds, Soft Musculoskeletal: Yes: WNL Extremities: Yes: WNL Edema: Yes Edema: LLE: Trace, RLE: Trace Integumentary: Yes: WNL Neurological: Yes: Alert, Oriented Psychiatric: Yes: Alert, Oriented Labs: CBC, BMP 07/02/18 10:45 07/02/18 10:45 <Pam Caputo - Last Filed: 07/03/18 12:46> Vital Signs: Vital Signs Temperature 98.4 F 07/03/18 14:58 Pulse Rate 80 07/03/18 14:58 Respiratory Rate 18 07/03/18 14:58 Blood Pressure 144/75 07/03/18 14:58 O2 Sat by Pulse Oximetry (%) 95 07/02/18 21:00 Labs: CBC, BMP 07/02/18 10:45 07/02/18 10:45 <Broderick Thapa - Last Filed: 07/05/18 08:50> Discharge Summary Reason For Visit: SHORTNESS OF BREATH, ACUTE ON CHRONIC DIASTOLIC Current Active Problems Abdominal distension (Acute) Acute on chronic diastolic (congestive) heart failure (Acute) Zwipg-ci-vclhfze kidney injury (Acute) Anxiety (Acute) Ascites (Acute) Chronic hepatitis B (Acute) Lower extremity edema (Acute) Pulmonary HTN (Acute) SOB (shortness of breath) (Acute) Sleep apnea (Acute) Sleep apnea (Acute) Procedures: Principal: Abdominal US. Echocardiogram. Vascular Study. EKG. CXR Hospital Course: Patient is a 63 y/o male who was admitted for SOB. During stay mild ascites noted on abdominal US, pt has hx of chronic Hep B. Evaluated by GI and cardiology in house, will follow up with both services as outpatient. Patient was eval by pulm during stay and will have PFT and outpatient sleep study for Cpap machine at home. On repeat abdominal US R pleural effusion noted, cleared by both pulm and cardio for discharge. Patient states feeling better and less dyspneic. - Home Medications Comprehensive Discharge Medication List: Ambulatory Orders Amlodipine Bes/Olmesartan Med [Amlodipine-Olmesartan 5-20 mg] 1 each PO DAILY Atorvastatin Ca [Lipitor] 40 mg PO HS 06/21/18 Clopidogrel Bisulfate [Plavix] 75 mg PO DAILY 06/21/18 Nebivolol [Bystolic -] 5 mg PO DAILY 06/21/18 Sitagliptin Phos/Metformin HCl [Janumet 50-1,000 mg Tablet] 1 each PO BID Furosemide [Lasix] 20 mg PO DAILY 06/29/18 <Pam Caputo - Last Filed: 07/03/18 12:46> - Home Medications Comprehensive Discharge Medication List: Ambulatory Orders Nebivolol [Bystolic -] 5 mg PO DAILY 06/21/18 Amlodipine Besylate [Norvasc -] 5 mg PO DAILY #30 tablet 07/03/18 Atorvastatin Ca [Lipitor] 40 mg PO HS #30 tablet 07/03/18 Clopidogrel Bisulfate [Plavix] 75 mg PO DAILY #30 tablet 07/03/18 Furosemide [Lasix] 20 mg PO DAILY #30 tablet 07/03/18 Insulin (Levemir) [Levemir Vial] 10 units SQ AM #100 units 07/03/18 Insulin (Levemir) [Levemir Vial] 25 units SQ HS #100 units 07/03/18 Insulin Sliding Scale [Novolog Vial Sliding Scale -] 1 vial SQ ACHS #1 units 04/11 Sitagliptin Phos/Metformin HCl [Janumet 50-1,000 mg Tablet] 1 each PO BID #60 tablet 07/03/18 clonazePAM [Klonopin -] 0.5 mg PO HS 1 Days #30 tablet MDD 1 07/03/18 <Broderick Thapa - Last Filed: 07/05/18 08:50> Condition: Improved - Instructions Diet, Activity, Other Instructions: Follow up with PMD in 3-4 days Follow up with coordinator of evaluation Dr Interiano for diabetes management Follow up with pulmonalogist Dr Alford for outpatient sleep study for Cpap at home Follow up with GI Dr Ambriz outpatient for work up and monitor mild ascites cont with low Na/diabetic diet cont with current med regimen Referrals: Papi Alford MD [Staff Physician] - Satya Ambriz MD [Staff Physician] - Jonathan Interiano MD [Staff Physician] - Broderick Thapa MD [Primary Care Provider] - Disposition: HOME
[2018-07-03 15:00] VITALS: BP 144/75; TEMP 98.4
== END 2018-07-03 04:20 | disposition home or self-care (01) | DRG 291 ==
LOC: JER 16:10 → JERBED 19:32 → J4W 06-30 01:09 → OBSVTOIN 06-30 12:48 → J4W 07-03 03:55
PROVIDERS: ADMIT Internal Medicine; ATTEND Family Medicine
DX: I13.0 Hypertensive heart and chronic kidney disease with heart failure and stage 1 through stage 4 chronic kidney disease, or unspecified chronic kidney disease (principal); I50.33 Acute on chronic diastolic (congestive) heart failure; R18.8 Other ascites; B18.1 Chronic viral hepatitis B without delta-agent; E11.9 Type 2 diabetes mellitus without complications; I42.8 Other cardiomyopathies; R14.0 Abdominal distension (gaseous); E78.5 Hyperlipidemia, unspecified; I27.20 Pulmonary hypertension, unspecified; E11.22 Type 2 diabetes mellitus with diabetic chronic kidney disease; N18.9 Chronic kidney disease, unspecified; Z79.84 Long term (current) use of oral hypoglycemic drugs; I25.10 Atherosclerotic heart disease of native coronary artery without angina pectoris; Z95.5 Presence of coronary angioplasty implant and graft; Z87.891 Personal history of nicotine dependence; Z68.34 Body mass index [BMI] 34.0-34.9, adult; I73.9 Peripheral vascular disease, unspecified; F41.9 Anxiety disorder, unspecified; E66.01 Morbid (severe) obesity due to excess calories; E11.40 Type 2 diabetes mellitus with diabetic neuropathy, unspecified; G47.33 Obstructive sleep apnea (adult) (pediatric)
CPT/HCPCS: 36415; 71045-TC-FY; 76700-TC; 76705-TC; 80053; 80074; 82105; 82172; 82550; 82553; 82962; 82977; 83010; 83036; 83880; 83883; 84460; 84484; 85025; 85027; 85610; 86317; 86704; 86706; 90732; 93005; 93010; 93306-TC; 93970-TC; 99285-25; G0009; G0378

== ENCOUNTER 2019-05-08 19:09 | Inpatient (IN) | payer OTHER ==
--- NOTE | 2019-05-08 19:15 | PDOC ---
Rapid Medical Evaluation Chief Complaint: Wound Time Seen by Provider: 05/08/19 19:11 Medical Evaluation: Allergies Allergy/AdvReac Type Severity Reaction Status Date / Time No Known Drug Allergies Allergy Verified 06/29/18 16:15 05/08/19 19:12 64 year old with blisters and wound to left leg worse than right esqueda. denies fever/ chills. history of DM Patient alert ox3/ b/l lower extremity edema, wound dressing on A: wound evaluation P: labs Discharge Disposition - Diagnosis Multiple blisters - Referrals - Patient Instructions - Post Discharge Activity
[2019-05-08 19:16] VITALS: BMI 36.1
--- NOTE | 2019-05-08 20:29 | PDOC ---
History of Present Illness - General Chief Complaint: Wound Stated Complaint: WOUND Time Seen by Provider: 05/08/19 19:11 - History of Present Illness Initial Comments: 05/08/19 20:28 64 yo M PMH diastolic CHF, IDDM, HTN, HLD, chronic hepatitis B, p/w leg wounds. Reports that they began approximately 5 days ago, begins with fluid collection "like a blister filled with water" which then overloads and opens up. Has been applying antibiotic ointment and keeping it wrapped at home. Patient saw his diabetic specialist Dr. Jonathan Interiano yesterday, who recommended that he come into the ER to ensure that there is no infection. Patient denies pain. Denies CP, SOB, abd pain, fevers/chills, constipation/diarrhea, RIDDLE, N/V. Past History - Past Medical History Allergies/Adverse Reactions: Allergies Allergy/AdvReac Type Severity Reaction Status Date / Time No Known Drug Allergies Allergy Verified 05/08/19 19:16 Home Medications: Ambulatory Orders Nebivolol [Bystolic -] 5 mg PO DAILY 06/21/18 Amlodipine Besylate [Norvasc -] 5 mg PO DAILY #30 tablet 07/03/18 Atorvastatin Ca [Lipitor] 40 mg PO HS #30 tablet 07/03/18 Clopidogrel Bisulfate [Plavix] 75 mg PO DAILY #30 tablet 07/03/18 Furosemide [Lasix] 20 mg PO DAILY #30 tablet 07/03/18 Insulin (Levemir) [Levemir Vial] 10 units SQ AM #100 units 07/03/18 Insulin (Levemir) [Levemir Vial] 25 units SQ HS #100 units 07/03/18 Insulin Sliding Scale [Novolog Vial Sliding Scale -] 1 vial SQ ACHS #1 units 04/11 Sitagliptin Phos/Metformin HCl [Janumet 50-1,000 mg Tablet] 1 each PO BID #60 tablet 07/03/18 clonazePAM [Klonopin -] 0.5 mg PO HS 1 Days #30 tablet MDD 1 07/03/18 Anemia: No Asthma: No Cancer: No Cardiac Disorders: Yes (CARDIAC STENT 2012) CVA: No COPD: No CHF: Yes Dementia: No Diabetes: Yes GI Disorders: No Disorders: No HTN: Yes Hypercholesterolemia: Yes Liver Disease: No Seizures: No Thyroid Disease: No - Surgical History Abdominal Surgery: No Appendectomy: Yes Cardiac Surgery: Yes (CARDIAC 2012) Cholecystectomy: No Lung Surgery: No Neurologic Surgery: No Orthopedic Surgery: No - Psycho Social/Smoking Cessation Hx Smoking Status: No Smoking History: Never smoked Have you smoked in the past 12 months: No Number of Cigarettes Smoked Daily: 0 (Hookah) If you are a former smoker, when did you quit?: 08/08/2012 Hx Alcohol Use: No Drug/Substance Use Hx: No Substance Use Type: None Hx Substance Use Treatment: No Review of Systems - Review of Systems Able to Perform ROS?: Yes Comments:: 05/08/19 20:43 GENERAL/CONSTITUTIONAL: No fever or chills. No weakness. HEAD, EYES, EARS, NOSE AND THROAT: No change in vision. No ear pain or discharge. No sore throat. CARDIOVASCULAR: No chest pain or shortness of breath. RESPIRATORY: No cough, wheezing, or hemoptysis. GASTROINTESTINAL: No nausea, vomiting, diarrhea or constipation. GENITOURINARY: No dysuria, frequency, or change in urination. MUSCULOSKELETAL: No joint or muscle swelling or pain. No neck or back pain. SKIN: wounds on b/l legs NEUROLOGIC: No headache, vertigo, loss of consciousness, or change in strength/ sensation. ENDOCRINE: No increased thirst. No abnormal weight change. HEMATOLOGIC/LYMPHATIC: No anemia, easy bleeding, or history of blood clots. ALLERGIC/IMMUNOLOGIC: No hives or skin allergy *Physical Exam - Vital Signs Last Vital Signs Temp Pulse Resp BP Pulse Ox 98.4 F 83 18 165/72 99 05/08/19 19:13 05/08/19 19:13 05/08/19 19:13 05/08/19 19:13 05/08/19 19:13 - Physical Exam Comments: 05/08/19 20:44 Gen: well-developed, well-nourished, NAD Neuro: AAOX4, CN II-XII intact, FTN intact, EOMI, PERRLA, 5/5 strength, SILT HEENT: atraumatic, normocephalic Neck: trachea midline, supple CV: regular rate, regular rhythm, no murmurs, rubs, or gallops Pulm: CTA b/l, no wheezing Abd: soft, non-distended, non-tender MSK: full ROM, intact pulses Extr: 3+ pitting edema, no deformities, venous stasis dermatitis Skin: warm, dry, multiple wounds on b/l legs with mild erythema and without purulence ED Treatment Course - LABORATORY CBC & Chemistry Diagram: 05/09/19 05:30 05/09/19 05:30 Medical Decision Making - Medical Decision Making 05/08/19 21:43 Concern for potential infected leg wounds. - CBC, CMP - will discuss with Dr. Interiano Hgb 9 from baseline around 10 05/08/19 21:58 Cr 1.8 from 1.3, BNP 7827.6 (highest it has been). Will admit, give IV clindamycin. 05/08/19 22:06 Normal sinus at 93 bpm, RBBB, inverted T wave in V3. 05/08/19 23:47 Prominent hilar markings, no acute pathology. Discharge - Discharge Information Problems reviewed: Yes Clinical Impression/Diagnosis: Multiple blisters, [place] (acute kidney injury), Acute on chronic diastolic CHF ( congestive heart failure) - Follow up/Referral - Patient Discharge Instructions - Post Discharge Activity
[2019-05-08 21:26] LABS: BASO % 2.4 % (0-2.0); EOS % 3.5 % (0-4.5); HEMATOCRIT 27.8 % (35.4-49); MCH 25.9 pg (25.7-33.7); MCHC 32.3 g/dl (32.0-35.9); MEAN CELL VOLUME 80.2 fl (80-96); MEAN PLT VOLUME 8.1 fl (7.5-11.1); MONO % 7.6 % (3.8-10.2); NEUT % 68.5 % (42.8-82.8); PLATELET COUNT 295 K/MM3 (134-434); RBC 3.47 M/mm3 (4.00-5.60); RDW 15.8 % (11.9-15.9); WHITE BLOOD COUNT 6.6 K/mm3 (4.0-10.0)
[2019-05-08 21:49] LABS: ALBUMIN 3.3 g/dl (3.4-5.0); BILIRUBIN,TOTAL 0.3 mg/dL (0.2-1); BLOOD UREA NITROGEN 47.4 mg/dL (7-18); CALCIUM 8.7 mg/dL (8.5-10.1); CREATININE 1.8 mg/dL (0.55-1.3); N-TERMINAL BNP 7827.6 pg/ml (5-125); POTASSIUM 4.5 mmol/L (3.5-5.1)
[2019-05-08] MEDS ORDERED: CLINDAMYCIN 600MG PREMIX IVPB 600 MG/50 ML BAG IVPB ONE ×2 (21:59→22:04)
--- NOTE | 2019-05-08 22:47 | PDOC ---
Documentation entered by Mynor Craig SCRIBE, acting as scribe for Liliana Quintana MD. Liliana Quintana MD: This documentation has been prepared by the Rafa lopez Daniel, SCRIBE, under my direction and personally reviewed by me in its entirety. I confirm that the documentation accurately reflects all work, treatment, procedures, and medical decision making performed by me. Attending Attestation - Resident Resident Name: Stephanie Santiago - ED Attending Attestation I have performed the following: I have examined & evaluated the patient, The case was reviewed & discussed with the resident, I agree w/resident's findings & plan, Exceptions are as noted - HPI HPI: 05/08/19 21:36 The patient is a 64 year old male with a past medical history of diastolic CHF, CKD, insulin dependent diabetes, HTN, HLD, and hepatitis B here today for evaluation of bilateral lower extremity wounds. The patient reports that 5 days ago he noticed fluid collections on both his legs that eventually ruptured. He states that he has been applying antibiotic ointment and wrapping his legs since they ruptured. 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 Patient denies headache, lightheadedness. Denies fever, chills. Denies chest pain, shortness of breath. Denies nausea, vomiting, diarrhea, abdominal pain. Allergies: NKDA PCP: Broderick Thapa Reserves Clerk: Jonathan Interiano - Physicial Exam PE: 05/08/19 22:39 awake alert no acute distress lungs are clear bilaterally heart is regular without murmurs rubs or gallops abdomen is soft distended obese extremities are warm and well-perfused there is bilateral edema which is [place] the left lower extremity has some mild erythema to the mid esqueda there is bilateral wounds which are circular appearance of denuded blisters there is drainage of yellowish serous fluid from the wounds patient has 1+ DP pulses bilaterally no noted warmth no crepitus neurologically is awake alert and oriented x3 - Medical Decision Making 05/08/19 22:40 64-year-old male history of CHF CKD hypertension hyperlipidemia diabetes here today with worsening leg swelling and now developed ulcerative denuded blisters and wounds. Was seen by nurse work today concern for cellulitis and worsening renal failure. The patient was recently changed from Lasix 80 mg a day down to 40 mg daily due to concerns for kidney dysfunction denies any shortness of breath orthopnea or exertional dyspnea but does complain of pain in his legs especially the left leg no fevers no chills On my exam bilateral legs are edematous with erythema of the left leg to the mid esqueda there is denuded blisters draining serous yellowish fluid Will admit the patient for diuresis and cellulitis was given IV clindamycin be given IV dose of Lasix discussed with dr douglas Mathews who agrees the plan Heart Score/ECG Review #1 ECG reviewed & interpreted by me at: 22:42 General ECG Interpretation: Sinus Rhythm, Normal Rate (93), Normal Intervals, No acute ischemic changes Compared to previous ECG there are: No significant change (no change TWI III, AVF. comparison 06/29/18)
[2019-05-08 22:54] LABS: EPI CELLS 1.1 /HPF (0-5/HPF); HYALINE CASTS 3 /lpf (0-8); URINE APPEARANCE CLEAR; URINE BACTERIA 1.9 /hpf (NEGATIVE); URINE BILIRUBIN NEGATIVE (NEGATIVE); URINE COLOR YELLOW; URINE GLUCOSE (UA) NEGATIVE (NEGATIVE); URINE KETONE NEGATIVE (NEGATIVE); URINE LEUK ESTERASE NEGATIVE (NEGATIVE); URINE NITRITE NEGATIVE (NEGATIVE); URINE PROTEIN 3+ (NEGATIVE); URINE RBC 14 /hpf (0-4); URINE WBC 2 /hpf (0-5)
[2019-05-08] MEDS ORDERED: FUROSEMIDE 40 MG/4 ML INJECTABLE VIAL IVPUSH ONE (23:17)
[2019-05-08] MEDS ORDERED: FUROSEMIDE 40 MG/4 ML INJECTABLE VIAL ONE (23:26)
--- NOTE | 2019-05-09 01:22 | HP ---
Admitting History and Physical - Primary Care Physician PCP: Dr. Thapa - Admission Chief Complaint: blister/ wound left leg worse History of Present Illness: 64 year old male with a significant medical history of HTN, HLD, CAD s/p Stent( 2012). Diastolic Dysfunction, PAD s/p L SFA [place] Stent, L Carotid Stenting, diastolic CHF, and Hepatitis B arrived to ED for evaluation of bilateral lower extremity wounds. The patient reports that 5 days ago he noticed fluid collections on both legs that eventually ruptured. He states that he has been applying antibiotic ointment and wrapping his legs since they ruptured. Patient presents today after speaking to his associate director career services. Patient denies headache, lightheadedness. Denies fever, chills. Denies chest pain, shortness of breath. Denies nausea, vomiting, diarrhea, abdominal pain. History Source: Patient, Family Member Limitations to Obtaining History: No Limitations - Past Medical History Cardiovascular: Yes: CAD, CHF, HTN, Hyperlipdemia, Other (PAD) Hepatobiliary: Yes: Hepatitis B Endocrine: Yes: Diabetes Mellitus - Past Surgical History Past Surgical History: Yes: Stent - Smoking History Smoking history: Never smoked Have you smoked in the past 12 months: No Aproximately how many cigarettes per day: 0 (Hookah) If you are a former smoker, when did you quit?: 08/08/2012 - Alcohol/Substance Use Hx Alcohol Use: No History of Substance Use: reports: None - Social History Usual Living Arrangement: Yes: With Spouse ADL: Independent History of Recent Travel: No Home Medications - Allergies Allergies/Adverse Reactions: Allergies Allergy/AdvReac Type Severity Reaction Status Date / Time No Known Drug Allergies Allergy Verified 05/08/19 19:16 - Home Medications Home Medications: Ambulatory Orders Nebivolol [Bystolic -] 5 mg PO DAILY 06/21/18 Amlodipine Besylate [Norvasc -] 5 mg PO DAILY #30 tablet 07/03/18 Atorvastatin Ca [Lipitor] 40 mg PO HS #30 tablet 07/03/18 Clopidogrel Bisulfate [Plavix] 75 mg PO DAILY #30 tablet 07/03/18 Furosemide [Lasix] 20 mg PO DAILY #30 tablet 07/03/18 Insulin (Levemir) [Levemir Vial] 10 units SQ AM #100 units 07/03/18 Insulin (Levemir) [Levemir Vial] 25 units SQ HS #100 units 07/03/18 Insulin Sliding Scale [Novolog Vial Sliding Scale -] 1 vial SQ ACHS #1 units 04/11 Sitagliptin Phos/Metformin HCl [Janumet 50-1,000 mg Tablet] 1 each PO BID #60 tablet 07/03/18 clonazePAM [Klonopin -] 0.5 mg PO HS 1 Days #30 tablet MDD 1 07/03/18 Family Medical History Family History: Denies Family Hx Coronary Artery Disease: Brother Family Hx Diabetes: Mother Review of Systems - Review of Systems Constitutional: reports: No Symptoms Eyes: reports: No Symptoms HENT: reports: No Symptoms Neck: reports: No Symptoms Cardiovascular: reports: No Symptoms Respiratory: reports: No Symptoms Gastrointestinal: reports: No Symptoms Genitourinary: reports: No Symptoms Musculoskeletal: reports: No Symptoms Integumentary: reports: Blister, Wound (left lower leg wound) Neurological: reports: No Symptoms Endocrine: reports: No Symptoms Hematology/Lymphatic: reports: No Symptoms Physical Examination Vital Signs: Vital Signs Temperature 98.4 F 05/08/19 19:13 Pulse Rate 83 05/08/19 19:13 Respiratory Rate 18 05/08/19 19:13 Blood Pressure 165/72 05/08/19 19:13 O2 Sat by Pulse Oximetry (%) 99 05/08/19 19:13 Constitutional: Yes: No Distress, Calm, Obese Eyes: Yes: Conjunctiva Clear, EOM Intact HENT: Yes: Atraumatic, Normocephalic Neck: Yes: Supple, Trachea Midline, Tenderness Respiratory: Yes: Regular, CTA Bilaterally Gastrointestinal: Yes: Normal Bowel Sounds, Soft Musculoskeletal: Yes: WNL Extremities: Yes: Other (multiple wounds on b/l legs with mild erythema and without purulence) Edema: Yes Edema: LLE: 3+, RLE: 3+ Peripheral Pulses WNL: Yes Neurological: Yes: Alert, Oriented Labs: CBC, BMP 05/08/19 20:56 05/08/19 20:56 Problem List - Problems (1) Acute on chronic diastolic (congestive) heart failure Code(s): I50.33 - ACUTE ON CHRONIC DIASTOLIC (CONGESTIVE) HEART FAILURE (2) Infected blister of lower leg Code(s): S80.829A - BLISTER (NONTHERMAL), UNSPECIFIED LOWER LEG, INIT ENCNTR; L08.9 - LOCAL INFECTION OF THE SKIN AND SUBCUTANEOUS TISSUE, UNSP (3) Multiple blisters Code(s): R23.8 - OTHER SKIN CHANGES (4) Mppuz-fd-jomlnjh kidney injury Code(s): N17.9 - ACUTE KIDNEY FAILURE, UNSPECIFIED; N18.9 - CHRONIC KIDNEY DISEASE, UNSPECIFIED (5) Hyperlipidemia associated with type 2 diabetes mellitus Code(s): E11.69 - TYPE 2 DIABETES MELLITUS WITH OTHER SPECIFIED COMPLICATION; E78.5 - HYPERLIPIDEMIA, UNSPECIFIED (6) Hypertensive cardiomyopathy Code(s): I11.9 - HYPERTENSIVE HEART DISEASE WITHOUT HEART FAILURE; I43 - CARDIOMYOPATHY IN DISEASES CLASSIFIED ELSEWHERE Qualifiers: Heart failure presence: with heart failure Qualified Code(s): I11.0 - Hypertensive heart disease with heart failure; I43 - Cardiomyopathy in diseases classified elsewhere; I43 - Cardiomyopathy in diseases classified elsewhere; I43 - Cardiomyopathy in diseases classified elsewhere; I43 - Cardiomyopathy in diseases classified elsewhere (7) Peripheral artery disease Code(s): I73.9 - PERIPHERAL VASCULAR DISEASE, UNSPECIFIED (8) Type 2 diabetes mellitus Code(s): E11.9 - TYPE 2 DIABETES MELLITUS WITHOUT COMPLICATIONS Qualifiers: Diabetes mellitus buttermaker insulin use: without group home use Diabetes mellitus complication status: without complication Qualified Code(s): E11.9 - Type 2 diabetes mellitus without complications Assessment/Plan 64 year old male with a significant medical history of HTN, HLD, CAD s/p Stent( 2012). Diastolic Dysfunction, PAD s/p L SFA [place] Stent, L Carotid Stenting, diastolic CHF, and Hepatitis B arrived to ED for evaluation of bilateral lower extremity wounds. The patient reports that 5 days ago he noticed fluid collections on both legs that eventually ruptured. He states that he has been applying antibiotic ointment and wrapping his legs since they ruptured. #Infected left leg wound - In ED given Clindamycin x1, will continue - follow up ID - follow up wound, blood cx - pain management - elevated extremity # Acute on chronic diastolic (congestive) heart failure -BNP 7827.7 -Chest Xray: no acute pathology -Given Lasix 20 mg IV in ED, will continue -Strict INOs -Daily weights -Monitor renal function -Elevate extremities -follow up cardiology in AM # Acute on Chronic CKD - monitor renal function -avoid nephro toxin -consider nephrology as needed # HTN/HLD #Coronary artery disease #Peripheral artery disease (s/p stent) -EKG- NSR @ 93 bpm, no s/t changes -Continue Plavix -Nebivolol 5 mg PO DAILY -divon 320mg po daily - Atorvastatin Ca 40 mg PO HS #Type 2 diabetes mellitus -BGMs -sliding scale TID AC novolog -Levemir 20 units HS -HgbA1c in am FEN: Fluid restriction, I&Os SYMONE/NCS VTE: Heparin SQ/SCD Visit type - Emergency Visit Emergency Visit: Yes ED Registration Date: 05/08/19 Care time: The patient presented to the Emergency Department on the above date and was hospitalized for further evaluation of their emergent condition. - New Patient This patient is new to me today: Yes Date on this admission: 05/09/19 - Critical Care Critical Care patient: No
[2019-05-09] MEDS ORDERED: ACETAMINOPHEN 325 MG TABLET (FP) PO PRN (01:27)
[2019-05-09] MEDS ORDERED: CLINDAMYCIN 600MG PREMIX IVPB 600 MG/50 ML BAG IVPB ONE (02:03)
[2019-05-09] MEDS: CLINDAMYCIN 300 MG PREMIX IVPB 300 MG/50 ML BAG IVPB SCH ×2 (02:07→10:45)
[2019-05-09 06:09] LABS: HEMATOCRIT 26.3 % (35.4-49); HEMOGLOBIN 8.6 GM/dL (11.7-16.9); MCH 25.8 pg (25.7-33.7); MCHC 32.6 g/dl (32.0-35.9); MEAN CELL VOLUME 79.1 fl (80-96); PLATELET COUNT 262 K/MM3 (134-434); RBC 3.33 M/mm3 (4.00-5.60); RDW 15.9 % (11.9-15.9); WHITE BLOOD COUNT 6.9 K/mm3 (4.0-10.0)
[2019-05-09 06:29] LABS: BLOOD UREA NITROGEN 48.4 mg/dL (7-18); CALCIUM 8.3 mg/dL (8.5-10.1); CREATININE 1.8 mg/dL (0.55-1.3); POTASSIUM 4.1 mmol/L (3.5-5.1)
[2019-05-09] MEDS: INSULIN SLIDING SCALE (NOVOLOG) 1 VIAL SQ SCH ×4 (06:37→21:53)
--- NOTE | 2019-05-09 07:39 | PN ---
Progress Note, Physician Chief Complaint: Lower ext cellulitis History of Present Illness: NAD at bedside - Current Medication List Current Medications: Active Medications Acetaminophen (Tylenol -) 650 mg PO Q6H PRN PRN Reason: PAIN LEVEL 1-5 Atorvastatin Calcium (Lipitor -) 40 mg PO HS [facility] Clopidogrel Bisulfate (Plavix -) 75 mg PO DAILY [facility] Furosemide (Lasix Injection -) 20 mg IVPUSH DAILY [facility] Heparin Sodium (Porcine) (Heparin -) 5,000 unit SQ BID [facility] Clindamycin Phosphate (Cleocin 300 Mg Premix Ivpb) 300 mg in 50 mls @ 100 mls/ hr IVPB Q8H-IV [place] Last Admin: 05/09/19 02:07 Dose: 100 mls/hr Insulin Aspart (Novolog Vial Sliding Scale -) 1 vial SQ ACHS [facility]; Protocol Last Admin: 05/09/19 06:37 Dose: Not Given Insulin Detemir (Levemir Vial) 20 units SQ HS [facility] Nebivolol (Bystolic -) 5 mg PO DAILY [facility] Valsartan (Diovan -) 320 mg PO DAILY [facility] - Objective Vital Signs: Vital Signs Temperature 98.4 F 05/08/19 19:13 Pulse Rate 86 05/09/19 06:38 Respiratory Rate 20 05/09/19 06:38 Blood Pressure 181/83 H 05/09/19 06:38 O2 Sat by Pulse Oximetry (%) 99 05/09/19 06:38 Constitutional: Yes: Well Nourished, No Distress, Calm Cardiovascular: Yes: Regular Rate and Rhythm Respiratory: Yes: Regular Gastrointestinal: Yes: Normal Bowel Sounds, Soft, Abdomen, Obese Genitourinary: Yes: WNL Extremities: Yes: Cool (BLLE) Edema: No Peripheral Pulses WNL: No Peripheral Pulses: Left Doralis Pedis: 1+, Right Dorsalis Pedis: 1+ Wound/Incision: Yes: Dressing Removed, Draining (LLE seropurulant drainage RLE minimal serous drainage) Neurological: Yes: Alert, Oriented Psychiatric: Yes: Alert, Oriented Labs: CBC, BMP 05/09/19 05:30 05/09/19 05:30 Problem List - Problems (1) Infected blister of lower leg Assessment/Plan: -Wound culture -IV abx -ID consult -Wound look more like vascular in nature Problems reviewed: Yes Code(s): S80.829A - BLISTER (NONTHERMAL), UNSPECIFIED LOWER LEG, INIT ENCNTR; L08.9 - LOCAL INFECTION OF THE SKIN AND SUBCUTANEOUS TISSUE, UNSP (2) Iixnk-az-wixolju kidney injury Assessment/Plan: -Hold Valsartan -Increased bystolic -Nephrology consult -monitor trend Problems reviewed: Yes Code(s): N17.9 - ACUTE KIDNEY FAILURE, UNSPECIFIED; N18.9 - CHRONIC KIDNEY DISEASE, UNSPECIFIED (3) Diabetes Assessment/Plan: -A1c at 6.4 -BGM AC HS -Diabetic low sodium diet -endocrine consult Problems reviewed: Yes Code(s): E11.9 - TYPE 2 DIABETES MELLITUS WITHOUT COMPLICATIONS Qualifiers: Diabetes mellitus type: type 2 (4) Peripheral artery disease Assessment/Plan: -Vascular consult -may need CT angio Problems reviewed: Yes Code(s): I73.9 - PERIPHERAL VASCULAR DISEASE, UNSPECIFIED Assessment/Plan see problem list
[2019-05-09] MEDS ORDERED: NEBIVOLOL 5 MG TABLET (FP) PO SCH (10:00)
[2019-05-09] MEDS ORDERED: VALSARTAN 160 MG TABLET (UD) PO SCH (10:00)
[2019-05-09] MEDS: FUROSEMIDE 40 MG/4 ML INJECTABLE VIAL IVPUSH SCH (10:30)
[2019-05-09] MEDS: HEPARIN NA (PORCINE) 5,000 UNITS/ML 1ML VIAL SQ SCH ×2 (10:45→21:53)
[2019-05-09] MEDS: CLOPIDOGREL BISULFATE 75 MG TABLET (FP) PO SCH (10:45)
[2019-05-09] MEDS ORDERED: INSULIN (NOVOLOG) ASPART 100 UNITS/ML 10ML VIAL ONE (11:15)
--- NOTE | 2019-05-09 14:58 | CON.CARD ---
Consult Consult Specialty:: Cards Reason for Consultation:: edema - History of Present Illness History of Present Illness: 64 M with ho CAD (PCI 3y ago) PVD sp lext stent, carotid disease sp carotid stenting. Chronic lower extremity edema on chronic diuretics. Noted increased edema and serous drainage from ruptured blister. No dyspnea or chest pain. Symptoms improved after diretic. Echo 06/2018 showed normal LV function, normal RV no valvulaopathy. - History Source History Provided By: Patient - Past Medical History Cardio/Vascular: Yes: CAD, CHF, HTN, Hyperlipdemia, Other (PAD) Hepatobiliary: Yes: Hepatitis B Endocrine: Yes: Diabetes Mellitus - Past Surgical History Past Surgical History: Yes: Stent - Alcohol/Substance Use Hx Alcohol Use: No History of Substance Use: reports: None - Smoking History Smoking history: Never smoked Have you smoked in the past 12 months: No Aproximately how many cigarettes per day: 0 (Hookah) If you are a former smoker, when did you quit?: 08/08/2012 - Social History Usual Living Arrangement: With Spouse ADL: Independent History of Recent Travel: No Home Medications - Allergies Allergies/Adverse Reactions: Allergies Allergy/AdvReac Type Severity Reaction Status Date / Time No Known Drug Allergies Allergy Verified 05/08/19 19:16 - Home Medications Home Medications: Ambulatory Orders Nebivolol [Bystolic -] 5 mg PO DAILY 06/21/18 Amlodipine Besylate [Norvasc -] 5 mg PO DAILY #30 tablet 07/03/18 Atorvastatin Ca [Lipitor] 40 mg PO HS #30 tablet 07/03/18 Clopidogrel Bisulfate [Plavix] 75 mg PO DAILY #30 tablet 07/03/18 Furosemide [Lasix] 20 mg PO DAILY #30 tablet 07/03/18 Insulin (Levemir) [Levemir Vial] 10 units SQ AM #100 units 07/03/18 Insulin (Levemir) [Levemir Vial] 25 units SQ HS #100 units 07/03/18 Insulin Sliding Scale [Novolog Vial Sliding Scale -] 1 vial SQ ACHS #1 units 04/11 Sitagliptin Phos/Metformin HCl [Janumet 50-1,000 mg Tablet] 1 each PO BID #60 tablet 07/03/18 clonazePAM [Klonopin -] 0.5 mg PO HS 1 Days #30 tablet MDD 1 07/03/18 Review of Systems - Review of Systems Constitutional: reports: No Symptoms Eyes: reports: No Symptoms HENT: reports: No Symptoms Neck: reports: No Symptoms Cardiovascular: reports: Edema. denies: Chest Pain, Palpitations, Shortness of Breath Respiratory: reports: No Symptoms Gastrointestinal: reports: No Symptoms Vital Signs: Vital Signs Temperature 98.4 F 05/09/19 10:45 Pulse Rate 89 05/09/19 10:45 Respiratory Rate 20 05/09/19 10:45 Blood Pressure 173/84 H 05/09/19 10:45 O2 Sat by Pulse Oximetry (%) 97 05/09/19 10:45 Constitutional: Yes: Well Nourished, No Distress Eyes: Yes: Conjunctiva Clear, EOM Intact HENT: Yes: Atraumatic, Normocephalic Neck: Yes: Supple, Trachea Midline Respiratory: Yes: Regular, CTA Bilaterally Gastrointestinal: Yes: Normal Bowel Sounds Cardiovascular: Yes: Regular Rate and Rhythm JVD: Yes PMI: Non-Displaced Heart Sounds: Yes: S1, S2 Murmur: No: Systolic Murmur, Diastolic Murmur Edema: Yes Edema: LLE: 1+, RLE: 1+ - Other Data Labs, Other Data: CBC, BMP 05/09/19 05:30 05/09/19 05:30 Troponin, BNP 05/08/19 20:56 B-Natriuretic Peptide 7827.6 H Troponin, BNP 05/08/19 20:56 B-Natriuretic Peptide 7827.6 H Imaging - Results Chest X-ray: Report Reviewed Problem List - Problems (1) [place] (acute kidney injury) Code(s): N17.9 - ACUTE KIDNEY FAILURE, UNSPECIFIED (2) Acute on chronic diastolic (congestive) heart failure Code(s): I50.33 - ACUTE ON CHRONIC DIASTOLIC (CONGESTIVE) HEART FAILURE Assessment/Plan 64 M with CKD, HfpEF, PVD and table CAD. Admitted with lower extremity swelling. Positive JVD. 1. Acute HfPEF, predominatly Rt sided volume overload. Continue with diuretics. Minitor lytes, weights daily Monitor UO 2. CAD stable CAD. Check ECG.
--- NOTE | 2019-05-09 16:01 | PN ---
Progress Note (short form) - Note Progress Note: ID consult dictated 64 yo man with longstanding DM< CKD, CAD, Dchf admitted with 2 month history of recurrent edema and blisters on his lower legs no fevers, no prior antibiotics suggest improved control of edema so legs don't blister ?element of venous stasis cefazolin for mild LLE cellulitis adjusted for CKD d/w patient , and daughter at bedside Problem List - Problems (1) Cellulitis Code(s): L03.90 - CELLULITIS, UNSPECIFIED (2) Venous stasis Code(s): I87.8 - OTHER SPECIFIED DISORDERS OF VEINS (3) Lower extremity edema Code(s): R60.0 - LOCALIZED EDEMA
--- NOTE | 2019-05-09 16:54 | CONS ---
DATE OF CONSULTATION: 05/09/2019 HISTORY OF PRESENT ILLNESS: The patient is a 64-year-old man with a long-standing history of diabetes for over 30 years. He has diabetic retinopathy and goes for monthly eye treatments. He has a history of coronary artery disease as well. For the last two months, he has been having recurrent edema with blisters on both lower extremities that ultimately pop but do not heal. He was seen by his primary care provider, Dr. Interiano, who recommended that he come in for further evaluation. He has had no fevers or chills. He has no chest pain, nausea, vomiting, diarrhea or dysuria. Currently, he cannot see out of his left eye due to recent laser treatment. PAST MEDICAL/SURGICAL HISTORY: Notable for hypertension, hyperlipidemia, coronary artery disease status post stents, history of congestive heart failure, diastolic heart failure and PAD. He has had a left lower extremity stent in the past. He has had a left carotid stent. He has a history of hepatitis B and diabetes. He notes that he gets up frequently at night to urinate and has trouble sleeping. He is able to lie flat and sleep with one pillow. SOCIAL HISTORY: He is and lives with his spouse and his family. He stopped smoking in 2012. No alcohol use. 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 There is no history of recent travel. FAMILY HISTORY: Notable for coronary artery disease in his brother and diabetes in his mother. He states he has been diabetic since age 37. ALLERGIES: No known drug allergies. OUTPATIENT MEDICATIONS: Bystolic, Norvasc, Lipitor, Plavix, Lasix, insulin, Janumet, Klonopin. REVIEW OF SYSTEMS: As per HPI. PHYSICAL EXAMINATION: General: He is awake and alert. Vital Signs: Temperature 98.7, pulse 82, blood pressure 151/77, respiratory rate 20. HEENT: Normocephalic. His eyes are anicteric. Neck: Supple. Lungs: Clear to auscultation. Heart: Regular rate and rhythm. Abdomen: Soft, nontender. Extremities: Notable for trace edema bilaterally. He has open blisters on both legs. There is no purulence. The right leg has no erythema. The left leg has minimal erythema. There are some honey-crusted edges of the blister on the left leg. LABORATORY DATA: White count is 6.9. Hemoglobin 8.6, platelets are 262. His BUN and creatinine are 48 and 1.8. Hemoglobin A1c is 6.4. LFTs are normal. His urinalysis shows leukocyte esterase, nitrite negative, with two white cells. Cultures are pending. IN SUMMARY: 1. This is a 64-year-old man with bilateral lower extremity edema and blisters. He has mild cellulitis of the right leg, some venous stasis changes as well but suggest that we treat him at this time with Cefazolin, adjusted for his renal insufficiency, with evaluation by cardiology to see if the edema can be managed so that he does not develop further blisters on his legs. 2. History of diabetes which appears well controlled. PALLAVI MICHELLE M.D. DARCY/[id number]
[2019-05-09] MEDS ORDERED: ceFAZolin SODIUM 1 GM VIAL ONE (21:18)
[2019-05-09] MEDS ORDERED: DEXTROSE 5%-WATER - 50 ML IVPB ONE (21:18)
[2019-05-09] MEDS: CEFAZOLIN 1 GM in DEXTROSE 5%-WATER - 50 ML IVPB SCH (21:52)
[2019-05-09] MEDS: ATORVASTATIN CA 40 MG TABLET (FP) PO SCH (21:53)
[2019-05-09] MEDS: INSULIN (LEVEMIR) 100 UNITS/ML UNITS SQ SCH (21:53)
[2019-05-10] MEDS: INSULIN SLIDING SCALE (NOVOLOG) 1 VIAL SQ SCH ×4 (06:21→21:49)
[2019-05-10 09:02] LABS: BASO % 2.3 % (0-2.0); EOS % 3.7 % (0-4.5); HEMATOCRIT 25.4 % (35.4-49); HEMOGLOBIN 8.3 GM/dL (11.7-16.9); LYMPH % 18.3 % (8-40); MCH 25.9 pg (25.7-33.7); MCHC 32.6 g/dl (32.0-35.9); MEAN CELL VOLUME 79.3 fl (80-96); MEAN PLT VOLUME 7.4 fl (7.5-11.1); MONO % 8.4 % (3.8-10.2); NEUT % 67.3 % (42.8-82.8); PLATELET COUNT 246 K/MM3 (134-434); RBC 3.21 M/mm3 (4.00-5.60); WHITE BLOOD COUNT 5.9 K/mm3 (4.0-10.0)
[2019-05-10] MEDS ORDERED: DEXTROSE 5%-WATER - 50 ML IVPB ONE ×2 (10:03→21:35)
[2019-05-10] MEDS ORDERED: ceFAZolin SODIUM 1 GM VIAL ONE ×2 (10:03→21:35)
[2019-05-10] MEDS: CEFAZOLIN 1 GM in DEXTROSE 5%-WATER - 50 ML IVPB SCH ×2 (10:10→21:49)
[2019-05-10] MEDS: HEPARIN NA (PORCINE) 5,000 UNITS/ML 1ML VIAL SQ SCH ×2 (10:12→21:49)
[2019-05-10] MEDS: FUROSEMIDE 40 MG/4 ML INJECTABLE VIAL IVPUSH SCH (10:12)
[2019-05-10] MEDS: CLOPIDOGREL BISULFATE 75 MG TABLET (FP) PO SCH (10:12)
[2019-05-10] MEDS: NEBIVOLOL 10 MG TABLET (FP) PO SCH (10:13)
[2019-05-10] MEDS ORDERED: INSULIN (NOVOLOG) ASPART 100 UNITS/ML 10ML VIAL ONE (12:34)
--- NOTE | 2019-05-10 18:17 | CONSULT ---
Consult Consult Specialty:: Nephrology Reason for Consultation:: ckd - History of Present Illness Chief Complaint: lower ext wounds History of Present Illness: Pt is a 64 year old male with pmhx of chf, ckd, dm, htn, hld and hep b who presents for lower ext edema. He was found to have elevated debone supervisor and I was called to evaluate him. He has history of CKD and has an appointment to see me. He has a long standing history of DM. He complains of lower ext edema. He was on lasix 20 mg bid however he does not always take it. he denies nsiad use. He complains of lower ext wounds that have been bothering him. - History Source History Provided By: Patient, Medical Record - Past Medical History Cardio/Vascular: Yes: CAD, CHF, HTN, Hyperlipdemia, Other (PAD) Hepatobiliary: Yes: Hepatitis B Renal/: Yes: Renal Inusuff Endocrine: Yes: Diabetes Mellitus - Past Surgical History Past Surgical History: Yes: Stent - Alcohol/Substance Use Hx Alcohol Use: No History of Substance Use: reports: None - Smoking History Smoking history: Never smoked Have you smoked in the past 12 months: No Aproximately how many cigarettes per day: 0 If you are a former smoker, when did you quit?: 08/08/2012 - Social History Usual Living Arrangement: With Spouse ADL: Independent History of Recent Travel: No Home Medications - Allergies Allergies/Adverse Reactions: Allergies Allergy/AdvReac Type Severity Reaction Status Date / Time No Known Drug Allergies Allergy Verified 05/08/19 19:16 - Home Medications Home Medications: Ambulatory Orders Nebivolol [Bystolic -] 5 mg PO DAILY 06/21/18 Amlodipine Besylate [Norvasc -] 5 mg PO DAILY #30 tablet 07/03/18 Atorvastatin Ca [Lipitor] 40 mg PO HS #30 tablet 07/03/18 Clopidogrel Bisulfate [Plavix] 75 mg PO DAILY #30 tablet 07/03/18 Furosemide [Lasix] 20 mg PO DAILY #30 tablet 07/03/18 Insulin (Levemir) [Levemir Vial] 10 units SQ AM #100 units 07/03/18 Insulin (Levemir) [Levemir Vial] 25 units SQ HS #100 units 07/03/18 Insulin Sliding Scale [Novolog Vial Sliding Scale -] 1 vial SQ ACHS #1 units 04/11 Sitagliptin Phos/Metformin HCl [Janumet 50-1,000 mg Tablet] 1 each PO BID #60 tablet 07/03/18 clonazePAM [Klonopin -] 0.5 mg PO HS 1 Days #30 tablet MDD 1 07/03/18 Family Medical History Family History: Denies Review of Systems - Review of Systems Constitutional: reports: Malaise Eyes: reports: Other (blind) HENT: reports: No Symptoms Neck: reports: No Symptoms Cardiovascular: reports: Edema Respiratory: reports: No Symptoms Gastrointestinal: reports: No Symptoms Genitourinary: reports: No Symptoms Musculoskeletal: reports: No Symptoms Integumentary: reports: Erythema, Wound Neurological: reports: No Symptoms Endocrine: reports: No Symptoms Hematology/Lymphatic: reports: No Symptoms Psychiatric: reports: No Symptoms Physical Exam Vital Signs: Vital Signs Temperature 98.5 F 05/10/19 14:31 Pulse Rate 79 05/10/19 14:31 Respiratory Rate 20 05/10/19 14:31 Blood Pressure 149/77 05/10/19 14:31 O2 Sat by Pulse Oximetry (%) 97 05/10/19 09:00 Constitutional: Yes: Calm HENT: Yes: Atraumatic Neck: Yes: Supple Cardiovascular: Yes: S1, S2 Respiratory: Yes: CTA Bilaterally Gastrointestinal: Yes: Soft Musculoskeletal: Yes: WNL Edema: Yes Edema: LLE: 2+, RLE: 2+ Wound/Incision: Yes: Dressing Dry and Intact Neurological: Yes: Oriented Psychiatric: Yes: Oriented Labs: CBC, BMP 05/10/19 08:50 05/09/19 05:30 Laboratory Tests 07/02/18 05/08/19 05/08/19 10:45 20:56 22:25 Hgb Creatinine 1.4 H 1.8 H Urine Protein 3+ H Urine Blood 2+ H 05/09/19 05/09/19 05/10/19 05:30 05:30 08:50 Hgb 8.6 L 8.3 L Creatinine 1.8 H Urine Protein Urine Blood Imaging - Results Chest X-ray: Report Reviewed Problem List - Problems (1) CKD (chronic kidney disease) Code(s): N18.9 - CHRONIC KIDNEY DISEASE, UNSPECIFIED (2) Infected blister of lower leg Code(s): S80.829A - BLISTER (NONTHERMAL), UNSPECIFIED LOWER LEG, INIT ENCNTR; L08.9 - LOCAL INFECTION OF THE SKIN AND SUBCUTANEOUS TISSUE, UNSP (3) Chronic hepatitis B Code(s): B18.1 - CHRONIC VIRAL HEPATITIS B WITHOUT DELTA-AGENT (4) Diabetes Code(s): E11.9 - TYPE 2 DIABETES MELLITUS WITHOUT COMPLICATIONS Qualifiers: Diabetes mellitus type: type 2 (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 Code(s): E11.69 - TYPE 2 DIABETES MELLITUS WITH OTHER SPECIFIED COMPLICATION; I43 - CARDIOMYOPATHY IN DISEASES CLASSIFIED ELSEWHERE Assessment/Plan Current Medications Generic Name Dose Route Start Last Admin Trade Name Freq PRN Reason Stop Dose Admin Acetaminophen 650 mg 05/09/19 01:27 Tylenol - PO Q6H PRN PAIN LEVEL 1-5 Atorvastatin Calcium 40 mg 05/09/19 22:00 05/09/19 21:53 Lipitor - PO 40 mg HS [facility] Administration Clopidogrel Bisulfate 75 mg 05/09/19 10:00 05/10/19 10:12 Plavix - PO 75 mg DAILY [facility] Administration Furosemide 20 mg 05/09/19 10:00 05/10/19 10:12 Lasix Injection - IVPUSH 20 mg DAILY [facility] Administration Heparin Sodium (Porcine) 5,000 unit 05/09/19 10:00 05/10/19 10:12 Heparin - SQ 5,000 unit BID [facility] Administration Cefazolin Sodium 1 gm/ 50 mls @ 100 mls/hr 05/09/19 22:00 05/10/19 10:10 Dextrose IVPB 100 mls/hr BID [place] Administration Insulin Aspart 1 vial 05/09/19 07:00 05/10/19 17:02 Novolog Vial Sliding Scale - SQ Not Given [facility] Protocol Insulin Detemir 20 units 05/09/19 22:00 05/09/19 21:53 Levemir Vial SQ 20 units HS [place] Administration Nebivolol 10 mg 05/10/19 10:00 05/10/19 10:13 Bystolic - PO 10 mg DAILY [place] Administration Impression 1. CKD 2. DM 3. lower ext cellulitis 4. htn 5. hep b 6. proteinuria 7. chf Plan - repeat labs in am - check prt to debone supervisor ratio - will need outpt workup - will need to evaluate status of hep b as it can cause renal disease - cont lasix - check renal ultrasound - avoid nsaids
--- NOTE | 2019-05-10 20:14 | EKG ---
Test Reason : Blood Pressure : / mmHG Vent. Rate : 093 BPM Atrial Rate : 093 BPM P-R Int : 150 ms QRS Dur : 144 ms QT Int : 436 ms P-R-T Axes : 023 105 008 degrees QTc Int : 542 ms NORMAL SINUS RHYTHM RIGHTWARD AXIS RIGHT BUNDLE BRANCH BLOCK ABNORMAL ECG WHEN COMPARED WITH ECG OF 29-JUN-2018 17:31, QRS AXIS SHIFTED RIGHT INVERTED T WAVES HAVE REPLACED NONSPECIFIC T WAVE ABNORMALITY IN ANTERIOR LEADS Confirmed by FABIO IBARRA MD ([id number]) on 05/10/2019 8:13:42 PM Referred By: Confirmed By:FABIO IBARRA MD
[2019-05-10] MEDS: INSULIN (LEVEMIR) 100 UNITS/ML UNITS SQ SCH (21:49)
[2019-05-10] MEDS: ATORVASTATIN CA 40 MG TABLET (FP) PO SCH (21:49)
--- NOTE | 2019-05-11 00:27 | CONSULT ---
Consult Consult Specialty:: endocrine Referred by:: obey jackson Reason for Consultation:: dmt2,ckd - Past Medical History Cardio/Vascular: Yes: CAD, CHF, HTN, Hyperlipdemia, Other (PAD) Hepatobiliary: Yes: Hepatitis B Renal/: Yes: Renal Inusuff Endocrine: Yes: Diabetes Mellitus - Past Surgical History Past Surgical History: Yes: Stent - Alcohol/Substance Use Hx Alcohol Use: No History of Substance Use: reports: None - Smoking History Smoking history: Never smoked Have you smoked in the past 12 months: No Aproximately how many cigarettes per day: 0 If you are a former smoker, when did you quit?: 08/08/2012 - Social History Usual Living Arrangement: With Spouse ADL: Independent History of Recent Travel: No Home Medications - Allergies Allergies/Adverse Reactions: Allergies Allergy/AdvReac Type Severity Reaction Status Date / Time No Known Drug Allergies Allergy Verified 05/08/19 19:16 - Home Medications Home Medications: Ambulatory Orders Nebivolol [Bystolic -] 5 mg PO DAILY 06/21/18 Amlodipine Besylate [Norvasc -] 5 mg PO DAILY #30 tablet 07/03/18 Atorvastatin Ca [Lipitor] 40 mg PO HS #30 tablet 07/03/18 Clopidogrel Bisulfate [Plavix] 75 mg PO DAILY #30 tablet 07/03/18 Furosemide [Lasix] 20 mg PO DAILY #30 tablet 07/03/18 Insulin (Levemir) [Levemir Vial] 10 units SQ AM #100 units 07/03/18 Insulin (Levemir) [Levemir Vial] 25 units SQ HS #100 units 07/03/18 Insulin Sliding Scale [Novolog Vial Sliding Scale -] 1 vial SQ ACHS #1 units 04/11 Sitagliptin Phos/Metformin HCl [Janumet 50-1,000 mg Tablet] 1 each PO BID #60 tablet 07/03/18 clonazePAM [Klonopin -] 0.5 mg PO HS 1 Days #30 tablet MDD 1 07/03/18 Physical Exam Vital Signs: Vital Signs Temperature 97.7 F 05/10/19 19:40 Pulse Rate 89 05/10/19 19:40 Respiratory Rate 20 05/10/19 14:31 Blood Pressure 149/80 05/10/19 19:40 O2 Sat by Pulse Oximetry (%) 97 05/10/19 09:00 Labs: CBC, BMP 05/10/19 08:50 05/09/19 05:30
[2019-05-11] MEDS: INSULIN SLIDING SCALE (NOVOLOG) 1 VIAL SQ SCH ×4 (06:47→21:50)
[2019-05-11] MEDS ORDERED: INSULIN (NOVOLOG) ASPART 100 UNITS/ML 10ML VIAL ONE ×2 (06:50→11:08)
[2019-05-11 08:19] LABS: BASO % 1.4 % (0-2.0); EOS % 3.7 % (0-4.5); HEMATOCRIT 29.3 % (35.4-49); HEMOGLOBIN 9.4 GM/dL (11.7-16.9); LYMPH % 15.7 % (8-40); MCH 25.6 pg (25.7-33.7); MCHC 32.1 g/dl (32.0-35.9); MEAN CELL VOLUME 79.7 fl (80-96); MEAN PLT VOLUME 8.3 fl (7.5-11.1); NEUT % 72.2 % (42.8-82.8); PLATELET COUNT 308 K/MM3 (134-434); RBC 3.68 M/mm3 (4.00-5.60); RDW 16.1 % (11.9-15.9); WHITE BLOOD COUNT 8.3 K/mm3 (4.0-10.0)
[2019-05-11 08:38] LABS: ALBUMIN 3.2 g/dl (3.4-5.0); BILIRUBIN,TOTAL 0.3 mg/dL (0.2-1); BLOOD UREA NITROGEN 45.2 mg/dL (7-18); CALCIUM 8.6 mg/dL (8.5-10.1); POTASSIUM 4.6 mmol/L (3.5-5.1)
[2019-05-11] MEDS ORDERED: DEXTROSE 5%-WATER - 50 ML IVPB ONE ×2 (09:12→21:45)
[2019-05-11] MEDS ORDERED: ceFAZolin SODIUM 1 GM VIAL ONE ×2 (09:12→21:44)
[2019-05-11] MEDS: FUROSEMIDE 40 MG/4 ML INJECTABLE VIAL IVPUSH SCH (09:14)
[2019-05-11] MEDS: CEFAZOLIN 1 GM in DEXTROSE 5%-WATER - 50 ML IVPB SCH ×2 (09:14→21:51)
[2019-05-11] MEDS: CLOPIDOGREL BISULFATE 75 MG TABLET (FP) PO SCH (09:15)
[2019-05-11] MEDS: HEPARIN NA (PORCINE) 5,000 UNITS/ML 1ML VIAL SQ SCH ×2 (09:15→21:51)
[2019-05-11] MEDS: NEBIVOLOL 10 MG TABLET (FP) PO SCH (09:15)
--- NOTE | 2019-05-11 10:03 | CONSULT ---
- Consultation REQUESTING PROVIDER: CONSULT REQUEST: We have been asked to surgically evaluate this patient for B/L lower extremity wounds PCP:Broderick Thapa HISTORY OF PRESENT ILLNESS: 64yo M was admitted for b/l LE wounds. Pt states that the wounds have been present for about 2 weeks. They started out as blisters that then popped. Pt denies previous history of leg wounds. Pt has long history of vascular disease including multiple stents in his LLE done by at [facility] in 2012 and Stent in his Lt carotid. Pt states was previous smoker and quit 2 years ago. Pt also has history of DM on insulin. Pt states that he is able to walk about 1/4 mile before has to rest and stop due to leg pain. Pt denies any fever, chills. PMHx: CAD s/p stents, PVD, DM, HTN PSHx: see above Home Medications Medication Instructions Recorded Nebivolol [Bystolic -] 5 mg PO DAILY 06/21/18 Amlodipine Besylate [Norvasc -] 5 mg PO DAILY #30 tablet 07/03/18 Atorvastatin Ca [Lipitor] 40 mg PO HS #30 tablet 07/03/18 Clopidogrel Bisulfate [Plavix] 75 mg PO DAILY #30 tablet 07/03/18 Furosemide [Lasix] 20 mg PO DAILY #30 tablet 07/03/18 Insulin (Levemir) [Levemir Vial] 10 units SQ AM #100 units 07/03/18 Insulin (Levemir) [Levemir Vial] 25 units SQ HS #100 units 07/03/18 Insulin Sliding Scale [Novolog 1 vial SQ ACHS #1 units 07/03/18 Vial Sliding Scale -] Sitagliptin Phos/Metformin HCl 1 each PO BID #60 tablet 07/03/18 [Janumet 50-1,000 mg Tablet] clonazePAM [Klonopin -] 0.5 mg PO HS 1 Days #30 tablet MDD 07/03/18 1 Allergies Allergy/AdvReac Type Severity Reaction Status Date / Time No Known Drug Allergies Allergy Verified 05/08/19 19:16 REVIEW OF SYSTEMS: CONSTITUTIONAL: Absent: fever, chills, diaphoresis, generalized weakness, malaise, loss of appetite, weight change CARDIOVASCULAR: Absent: chest pain, syncope, palpitations, irregular heart rate, lightheadedness , peripheral edema RESPIRATORY: Absent: cough, shortness of breath, dyspnea with exertion, wheezing, stridor, hemoptysis PHYSICAL EXAM: GENERAL: Awake, alert, and fully oriented, in no acute distress. HEAD: Normal with no signs of trauma. EYES: PERRL, sclera anicteric, conjunctiva clear. NECK: Normal ROM, supple without lymphadenopathy, JVD, or masses. LUNGS: Breathing comfortably, No accessory muscle use. HEART: Regular rate and rhythm. LOWER EXTREMITIES: RLE dopplarable PT pulses, warm, well-perfused. No calf tenderness. +1 edema, 2 x 4cm ulcer Medial malelous. LLE: dopplarable pulses in PT and pedal, multiple ulcers on anterior shins, in various levels of healing , serous drainage, no erythema, +1 edema. NEUROLOGICAL: Normal speech, gait not observed. PSYCH: Cooperative. Good eye contact. Appropriate mood and affect. SKIN: Warm, dry, normal turgor, no rashes or lesions noted. Vital Signs Temperature 98.8 F 05/11/19 05:17 Pulse Rate 93 H 05/11/19 05:17 Respiratory Rate 20 05/11/19 05:17 Blood Pressure 160/88 05/11/19 05:17 O2 Sat by Pulse Oximetry (%) 97 05/10/19 21:00 Lab Results WBC 8.3 K/mm3 (4.0-10.0) 05/11/19 07:05 RBC 3.68 M/mm3 (4.00-5.60) L 05/11/19 07:05 Hgb 9.4 GM/dL (11.7-16.9) L 05/11/19 07:05 Hct 29.3 % (35.4-49) L D 05/11/19 07:05 MCV 79.7 fl (80-96) L 05/11/19 07:05 MCHC 32.1 g/dl (32.0-35.9) 05/11/19 07:05 RDW 16.1 % (11.9-15.9) H 05/11/19 07:05 Plt Count 308 K/MM3 (134-434) D 05/11/19 07:05 Sodium 138 mmol/L (136-145) 05/11/19 07:05 Potassium 4.6 mmol/L (3.5-5.1) 05/11/19 07:05 Chloride 109 mmol/L (98-107) H 05/11/19 07:05 Carbon Dioxide 23 mmol/L (21-32) 05/11/19 07:05 Anion Gap 6 MMOL/L (8-16) L 05/11/19 07:05 BUN 45.2 mg/dL (7-18) H 05/11/19 07:05 Creatinine 2.0 mg/dL (0.55-1.3) H 05/11/19 07:05 Random Glucose 173 mg/dL (74-106) H 05/11/19 07:05 Calcium 8.6 mg/dL (8.5-10.1) 05/11/19 07:05 Problem List - Problems (1) Multiple blisters Assessment/Plan: Plan -pt appears to have venous stasis ulcers, would recommend silver aginate and compression dressings -pt should follow up with wound care clinic with Dr. Camacho as an outpatient. Please contact vascular service if any changes. Pt discussed with Dr. Camacho who agrees with plan Code(s): R23.8 - OTHER SKIN CHANGES
[2019-05-11] MEDS: SILVER SULFADIAZINE 1% TOP CREAM 50 GM JAR TP SCH ×2 (10:58→21:51)
--- NOTE | 2019-05-11 11:19 | PN ---
Progress Note, Physician Chief Complaint: Lower Extremity Cellulitis History of Present Illness: Previous notes and events reviewed awake and alert NAD sts pain to lower extremities is less lower extremities warm to touch WBC showing downtrend wound culture positive - Current Medication List Current Medications: Active Medications Acetaminophen (Tylenol -) 650 mg PO Q6H PRN PRN Reason: PAIN LEVEL 1-5 Atorvastatin Calcium (Lipitor -) 40 mg PO HS [facility] Last Admin: 05/10/19 21:49 Dose: 40 mg Clopidogrel Bisulfate (Plavix -) 75 mg PO DAILY [facility] Last Admin: 05/11/19 09:15 Dose: 75 mg Furosemide (Lasix Injection -) 20 mg IVPUSH DAILY [facility] Last Admin: 05/11/19 09:14 Dose: 20 mg Heparin Sodium (Porcine) (Heparin -) 5,000 unit SQ BID [facility] Last Admin: 05/11/19 09:15 Dose: 5,000 unit Cefazolin Sodium 1 gm/ (Dextrose) 50 mls @ 100 mls/hr IVPB BID [facility] Last Admin: 05/11/19 09:14 Dose: 100 mls/hr Insulin Aspart (Novolog Vial Sliding Scale -) 1 vial SQ [facility]; Protocol Last Admin: 05/11/19 11:09 Dose: 4 units Insulin Detemir (Levemir Vial) 20 units SQ [facility] Last Admin: 05/10/19 21:49 Dose: 20 units Nebivolol (Bystolic -) 10 mg PO DAILY [facility] Last Admin: 05/11/19 09:15 Dose: 10 mg Silver Sulfadiazine (Silvadene -) 1 applic TP BID [facility] Last Admin: 05/11/19 10:58 Dose: Not Given - Objective Vital Signs: Vital Signs Temperature 98.8 F 05/11/19 05:17 Pulse Rate 93 H 05/11/19 05:17 Respiratory Rate 20 05/11/19 05:17 Blood Pressure 160/88 05/11/19 05:17 O2 Sat by Pulse Oximetry (%) 97 05/10/19 21:00 Constitutional: Yes: No Distress, Calm Eyes: Yes: Conjunctiva Clear HENT: Yes: Atraumatic Cardiovascular: Yes: Regular Rate and Rhythm Respiratory: Yes: Regular, CTA Bilaterally Gastrointestinal: Yes: Normal Bowel Sounds, Soft Musculoskeletal: Yes: Muscle Weakness Extremities: Yes: WNL Edema: Yes Integumentary: Yes: Venous Stasis Changes Wound/Incision: Yes: Open to air Neurological: Yes: Alert, Oriented Psychiatric: Yes: Alert, Oriented Labs: CBC, BMP 05/11/19 07:05 05/11/19 07:05 Microbiology 05/09/19 01:21 Leg - Left Lower Gram Stain - Final 05/09/19 01:21 Leg - Left Lower Wound Culture - Final Pseudomonas Aeruginosa 05/08/19 22:25 Blood - Peripheral Venous Blood Culture - Preliminary NO GROWTH OBTAINED AFTER 48 HOURS, INCUBATION TO CONTINUE FOR 3 DAYS. 05/08/19 22:29 Blood - Peripheral Venous Blood Culture - Preliminary NO GROWTH OBTAINED AFTER 48 HOURS, INCUBATION TO CONTINUE FOR 3 DAYS. 05/08/19 22:25 Urine - Urine Clean Catch Urine Culture - Final NO GROWTH OBTAINED Problem List - Problems (1) Acute on chronic diastolic (congestive) heart failure Assessment/Plan: -Furosemide -daily weights -strict I&O -fluid restriction Code(s): I50.33 - ACUTE ON CHRONIC DIASTOLIC (CONGESTIVE) HEART FAILURE (2) CKD (chronic kidney disease) Assessment/Plan: -Renal on board -BUN/Cr 45.2/2.2 -renal US -monitor renal function daily Code(s): N18.9 - CHRONIC KIDNEY DISEASE, UNSPECIFIED (3) Infected blister of lower leg Assessment/Plan: -ID on board -wound culture positive Pseudomonas -no leukocytosis -afebrile -Cefazolin -Vascular on board Code(s): S80.829A - BLISTER (NONTHERMAL), UNSPECIFIED LOWER LEG, INIT ENCNTR; L08.9 - LOCAL INFECTION OF THE SKIN AND SUBCUTANEOUS TISSUE, UNSP (4) Coronary artery disease Assessment/Plan: -Plavix Code(s): I25.10 - ATHSCL HEART DISEASE OF [place] CORONARY ARTERY W/O ANG PCTRS Qualifiers: Coronary Disease-Associated Artery/Lesion type: [place] artery [place] vs. transplanted heart: [place] heart Associated angina: without angina Qualified Code(s): I25.10 - Atherosclerotic heart disease of [place] coronary artery without angina pectoris (5) Type 2 diabetes mellitus Assessment/Plan: -BGM ACHS -Levemir -ISS -diabetic diet -HgA1c 6.4% Code(s): E11.9 - TYPE 2 DIABETES MELLITUS WITHOUT COMPLICATIONS Qualifiers: Diabetes mellitus terminologist insulin use: without terminologist use Diabetes mellitus complication status: without complication Qualified Code(s): E11.9 - Type 2 diabetes mellitus without complications
--- NOTE | 2019-05-11 14:56 | PN ---
Progress Note, Physician History of Present Illness: Pt seen and examined at bedside. He feels edema is improving. - Current Medication List Current Medications: Active Medications Acetaminophen (Tylenol -) 650 mg PO Q6H PRN PRN Reason: PAIN LEVEL 1-5 Atorvastatin Calcium (Lipitor -) 40 mg PO HS [facility] Last Admin: 05/10/19 21:49 Dose: 40 mg Clopidogrel Bisulfate (Plavix -) 75 mg PO DAILY [facility] Last Admin: 05/11/19 09:15 Dose: 75 mg Furosemide (Lasix Injection -) 20 mg IVPUSH DAILY [facility] Last Admin: 05/11/19 09:14 Dose: 20 mg Heparin Sodium (Porcine) (Heparin -) 5,000 unit SQ BID [facility] Last Admin: 05/11/19 09:15 Dose: 5,000 unit Cefazolin Sodium 1 gm/ (Dextrose) 50 mls @ 100 mls/hr IVPB BID [facility] Last Admin: 05/11/19 09:14 Dose: 100 mls/hr Insulin Aspart (Novolog Vial Sliding Scale -) 1 vial SQ [facility]; Protocol Last Admin: 05/11/19 11:09 Dose: 4 units Insulin Detemir (Levemir Vial) 20 units SQ [facility] Last Admin: 05/10/19 21:49 Dose: 20 units Nebivolol (Bystolic -) 10 mg PO DAILY [facility] Last Admin: 05/11/19 09:15 Dose: 10 mg Silver Sulfadiazine (Silvadene -) 1 applic TP BID [facility] Last Admin: 05/11/19 10:58 Dose: Not Given - Objective Vital Signs: Vital Signs Temperature 97.9 F 05/11/19 14:10 Pulse Rate 95 H 05/11/19 14:10 Respiratory Rate 18 05/11/19 10:00 Blood Pressure 150/79 05/11/19 14:10 O2 Sat by Pulse Oximetry (%) 95 05/11/19 10:00 Constitutional: Yes: Calm HENT: Yes: Atraumatic Neck: Yes: Supple Cardiovascular: Yes: S1, S2 Respiratory: Yes: CTA Bilaterally Gastrointestinal: Yes: Normal Bowel Sounds, Soft Genitourinary: Yes: WNL Musculoskeletal: Yes: WNL Edema: Yes Edema: LLE: Trace, RLE: Trace Neurological: Yes: Oriented Psychiatric: Yes: Oriented Labs: CBC, BMP 05/11/19 07:05 05/11/19 07:05 Problem List - Problems (1) CKD (chronic kidney disease) Code(s): N18.9 - CHRONIC KIDNEY DISEASE, UNSPECIFIED (2) Infected blister of lower leg Code(s): S80.829A - BLISTER (NONTHERMAL), UNSPECIFIED LOWER LEG, INIT ENCNTR; L08.9 - LOCAL INFECTION OF THE SKIN AND SUBCUTANEOUS TISSUE, UNSP (3) Chronic hepatitis B Code(s): B18.1 - CHRONIC VIRAL HEPATITIS B WITHOUT DELTA-AGENT (4) Diabetes Code(s): E11.9 - TYPE 2 DIABETES MELLITUS WITHOUT COMPLICATIONS (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 Code(s): E11.69 - TYPE 2 DIABETES MELLITUS WITH OTHER SPECIFIED COMPLICATION; I43 - CARDIOMYOPATHY IN DISEASES CLASSIFIED ELSEWHERE Assessment/Plan Current Medications Generic Name Dose Route Start Last Admin Trade Name Freq PRN Reason Stop Dose Admin Acetaminophen 650 mg 05/09/19 01:27 Tylenol - PO Q6H PRN PAIN LEVEL 1-5 Atorvastatin Calcium 40 mg 05/09/19 22:00 05/10/19 21:49 Lipitor - PO 40 mg HS [facility] Administration Clopidogrel Bisulfate 75 mg 05/09/19 10:00 05/11/19 09:15 Plavix - PO 75 mg DAILY [facility] Administration Furosemide 20 mg 05/09/19 10:00 05/11/19 09:14 Lasix Injection - IVPUSH 20 mg DAILY [facility] Administration Heparin Sodium (Porcine) 5,000 unit 05/09/19 10:00 05/11/19 09:15 Heparin - SQ 5,000 unit BID [facility] Administration Cefazolin Sodium 1 gm/ 50 mls @ 100 mls/hr 05/09/19 22:00 05/11/19 09:14 Dextrose IVPB 100 mls/hr BID [facility] Administration Insulin Aspart 1 vial 05/09/19 07:00 05/11/19 11:09 Novolog Vial Sliding Scale - SQ 4 units ACHS [facility] Administration Protocol Insulin Detemir 20 units 05/09/19 22:00 05/10/19 21:49 Levemir Vial SQ 20 units HS [facility] Administration Nebivolol 10 mg 05/10/19 10:00 05/11/19 09:15 Bystolic - PO 10 mg DAILY [facility] Administration Silver Sulfadiazine 1 applic 05/11/19 10:00 05/11/19 10:58 Silvadene - TP Not Given BID [facility] Laboratory Tests 05/10/19 23:15 Protein/Creatinin Ratio 3.8 Impression 1. CKD 2. DM 3. lower ext cellulitis 4. htn 5. hep b 6. proteinuria 7. chf Plan - change lasix to 40 mg po daily - follow renal ultrasound - will see pt in office - DM can explain ua findings and proteinuria however he will still need a workup - avoid nsaids
--- NOTE | 2019-05-11 16:02 | PN ---
Progress Note, Physician History of Present Illness: seen and examined today in nad. states he is feeling better. states LE edema improving. no sob. - Current Medication List Current Medications: Active Medications Acetaminophen (Tylenol -) 650 mg PO Q6H PRN PRN Reason: PAIN LEVEL 1-5 Atorvastatin Calcium (Lipitor -) 40 mg PO HS [facility] Last Admin: 05/10/19 21:49 Dose: 40 mg Clopidogrel Bisulfate (Plavix -) 75 mg PO DAILY [facility] Last Admin: 05/11/19 09:15 Dose: 75 mg Furosemide (Lasix -) 40 mg PO DAILY [facility] Heparin Sodium (Porcine) (Heparin -) 5,000 unit SQ BID [facility] Last Admin: 05/11/19 09:15 Dose: 5,000 unit Cefazolin Sodium 1 gm/ (Dextrose) 50 mls @ 100 mls/hr IVPB BID [facility] Last Admin: 05/11/19 09:14 Dose: 100 mls/hr Insulin Aspart (Novolog Vial Sliding Scale -) 1 vial SQ [facility]; Protocol Last Admin: 05/11/19 11:09 Dose: 4 units Insulin Detemir (Levemir Vial) 20 units SQ [facility] Last Admin: 05/10/19 21:49 Dose: 20 units Nebivolol (Bystolic -) 10 mg PO DAILY [facility] Last Admin: 05/11/19 09:15 Dose: 10 mg Silver Sulfadiazine (Silvadene -) 1 applic TP BID [facility] Last Admin: 05/11/19 10:58 Dose: Not Given - Objective Vital Signs: Vital Signs Temperature 97.9 F 05/11/19 14:10 Pulse Rate 95 H 05/11/19 14:10 Respiratory Rate 18 05/11/19 10:00 Blood Pressure 150/79 05/11/19 14:10 O2 Sat by Pulse Oximetry (%) 95 05/11/19 10:00 Constitutional: Yes: No Distress, Calm Eyes: Yes: Conjunctiva Clear, EOM Intact HENT: Yes: Atraumatic, Normocephalic Neck: Yes: Supple, Trachea Midline Cardiovascular: Yes: Regular Rate and Rhythm, Murmur, S1, S2. No: Bradycardia, Tachycardia, Pulse Irregular, Bruit, JVD, Gallop, Rub, S3, S4, Varicosities Respiratory: Yes: Regular, CTA Bilaterally. No: On Nasal O2, Rales, Rhonchi, SOB, Wheezes Gastrointestinal: Yes: Normal Bowel Sounds, Soft. No: Distention, Tenderness Edema: Yes Edema: LLE: Trace, RLE: Trace Peripheral Pulses WNL: Yes Neurological: Yes: Alert, Oriented Psychiatric: Yes: Alert, Oriented Labs: CBC, BMP 05/11/19 07:05 05/11/19 07:05 - ....Imaging Chest X-ray: Report Reviewed, Image Reviewed EKG: Report Reviewed, Image Reviewed Other: Report Reviewed, Image Reviewed Assessment/Plan 64 M with ho CAD (PCI 3y ago) PVD sp lext stent, carotid disease sp carotid stenting. Chronic lower extremity edema on chronic diuretics. Noted increased edema and serous drainage from ruptured blister. LE edema-likely combined Chronic venous insufficiency with degree of Chronic diastolic/R sided chf -received IV Lasix -BUn/creat trended up -agree with changing lasix to po -wound care, compression stockigns -lungs clear, no sob, no chest pain Echo 06/2018 showed normal LV function, normal RV no valvulaopathy. -no additional inpatient cardiac work up is needed at this time. -[facility] outpatient fup with his director information Dr. Barraza Will see as needed. Please call with any additional questions.
[2019-05-11] MEDS: INSULIN (LEVEMIR) 100 UNITS/ML UNITS SQ SCH (21:50)
[2019-05-11] MEDS: ATORVASTATIN CA 40 MG TABLET (FP) PO SCH (21:51)
[2019-05-12] MEDS: INSULIN SLIDING SCALE (NOVOLOG) 1 VIAL SQ SCH ×4 (06:12→21:47)
[2019-05-12] MEDS ORDERED: INSULIN (NOVOLOG) ASPART 100 UNITS/ML 10ML VIAL ONE ×4 (06:16→21:15)
[2019-05-12] MEDS ORDERED: DEXTROSE 5%-WATER - 50 ML IVPB ONE ×2 (08:41→21:15)
[2019-05-12] MEDS ORDERED: ceFAZolin SODIUM 1 GM VIAL ONE ×2 (08:41→21:15)
[2019-05-12] MEDS: CLOPIDOGREL BISULFATE 75 MG TABLET (FP) PO SCH (09:19)
[2019-05-12] MEDS: HEPARIN NA (PORCINE) 5,000 UNITS/ML 1ML VIAL SQ SCH ×2 (09:19→21:46)
[2019-05-12] MEDS: SILVER SULFADIAZINE 1% TOP CREAM 50 GM JAR TP SCH ×2 (09:19→21:48)
[2019-05-12] MEDS: CEFAZOLIN 1 GM in DEXTROSE 5%-WATER - 50 ML IVPB SCH ×2 (09:19→21:46)
[2019-05-12] MEDS: NEBIVOLOL 10 MG TABLET (FP) PO SCH (09:19)
[2019-05-12] MEDS: FUROSEMIDE 40 MG TABLET (FP) PO SCH (09:19)
[2019-05-12 09:34] LABS: HEMATOCRIT 26.3 % (35.4-49); HEMOGLOBIN 8.4 GM/dL (11.7-16.9); MCH 25.4 pg (25.7-33.7); MCHC 31.8 g/dl (32.0-35.9); MEAN CELL VOLUME 79.9 fl (80-96); MEAN PLT VOLUME 8.5 fl (7.5-11.1); PLATELET COUNT 270 K/MM3 (134-434); RBC 3.29 M/mm3 (4.00-5.60)
[2019-05-12 10:52] LABS: ALBUMIN 3.1 g/dl (3.4-5.0); BILIRUBIN,TOTAL 0.2 mg/dL (0.2-1); BLOOD UREA NITROGEN 44.4 mg/dL (7-18); CALCIUM 8.3 mg/dL (8.5-10.1); CREATININE 1.8 mg/dL (0.55-1.3); POTASSIUM 4.5 mmol/L (3.5-5.1); TOT PROT 6.6 g/dl (6.4-8.2)
--- NOTE | 2019-05-12 14:37 | PN ---
Progress Note, Physician Chief Complaint: Lower Extremity Cellulitis History of Present Illness: Previous notes and events reviewed awake and alert NAD sts pain to lower extremities is less lower extremities warm to touch wound culture positive renal function improving - Current Medication List Current Medications: Active Medications Acetaminophen (Tylenol -) 650 mg PO Q6H PRN PRN Reason: PAIN LEVEL 1-5 Atorvastatin Calcium (Lipitor -) 40 mg PO HS [facility] Last Admin: 05/11/19 21:51 Dose: 40 mg Clopidogrel Bisulfate (Plavix -) 75 mg PO DAILY [facility] Last Admin: 05/12/19 09:19 Dose: 75 mg Furosemide (Lasix -) 40 mg PO DAILY [facility] Last Admin: 05/12/19 09:19 Dose: 40 mg Heparin Sodium (Porcine) (Heparin -) 5,000 unit SQ BID [facility] Last Admin: 05/12/19 09:19 Dose: 5,000 unit Cefazolin Sodium 1 gm/ (Dextrose) 50 mls @ 100 mls/hr IVPB BID [facility] Last Admin: 05/12/19 09:19 Dose: 100 mls/hr Insulin Aspart (Novolog Vial Sliding Scale -) 1 vial SQ [facility]; Protocol Last Admin: 05/12/19 11:21 Dose: 2 units Insulin Detemir (Levemir Vial) 20 units SQ [facility] Last Admin: 05/11/19 21:50 Dose: 20 units Nebivolol (Bystolic -) 10 mg PO DAILY [facility] Last Admin: 05/12/19 09:19 Dose: 10 mg Silver Sulfadiazine (Silvadene -) 1 applic TP BID [facility] Last Admin: 05/12/19 09:19 Dose: Not Given - Objective Vital Signs: Vital Signs Temperature 97.6 F 05/12/19 14:18 Pulse Rate 73 05/12/19 14:18 Respiratory Rate 18 05/12/19 10:00 Blood Pressure 148/72 05/12/19 14:18 O2 Sat by Pulse Oximetry (%) 95 05/12/19 09:00 Constitutional: Yes: No Distress, Calm Eyes: Yes: Conjunctiva Clear HENT: Yes: Atraumatic Cardiovascular: Yes: Regular Rate and Rhythm Respiratory: Yes: Regular, CTA Bilaterally Gastrointestinal: Yes: Normal Bowel Sounds, Soft, Abdomen, Obese Musculoskeletal: Yes: WNL Extremities: Yes: Erythema (b/l lower extremities) Edema: Yes (lower extremities) Integumentary: Yes: Venous Stasis Changes Wound/Incision: Yes: Dressing Dry and Intact Neurological: Yes: Alert, Oriented Psychiatric: Yes: Alert, Oriented Labs: CBC, BMP 05/12/19 07:55 05/12/19 07:55 Microbiology 05/08/19 22:25 Blood - Peripheral Venous Blood Culture - Preliminary NO GROWTH OBTAINED AFTER 72 HOURS, INCUBATION TO CONTINUE FOR 2 DAYS. 05/08/19 22:29 Blood - Peripheral Venous Blood Culture - Preliminary NO GROWTH OBTAINED AFTER 72 HOURS, INCUBATION TO CONTINUE FOR 2 DAYS. 05/09/19 01:21 Leg - Left Lower Gram Stain - Final 05/09/19 01:21 Leg - Left Lower Wound Culture - Final Pseudomonas Aeruginosa 05/08/19 22:25 Urine - Urine Clean Catch Urine Culture - Final NO GROWTH OBTAINED - ....Imaging Ultrasound: Report Reviewed (Renal) Problem List - Problems (1) Acute on chronic diastolic (congestive) heart failure Assessment/Plan: -Furosemide changed to PO -daily weights -strict I&O -fluid restriction Code(s): I50.33 - ACUTE ON CHRONIC DIASTOLIC (CONGESTIVE) HEART FAILURE (2) CKD (chronic kidney disease) Assessment/Plan: -Renal on board -BUN/Cr 44.4/1.8 -renal US shows kidneys are unremarkable -monitor renal function daily Code(s): N18.9 - CHRONIC KIDNEY DISEASE, UNSPECIFIED (3) Infected blister of lower leg Assessment/Plan: -ID on board -BC neg -wound culture positive Pseudomonas -no leukocytosis -afebrile -Cefazolin -Vascular on board -silver alginate apply to b/l lower extremities, compression dressing -daily dressing changes Code(s): S80.829A - BLISTER (NONTHERMAL), UNSPECIFIED LOWER LEG, INIT ENCNTR; L08.9 - LOCAL INFECTION OF THE SKIN AND SUBCUTANEOUS TISSUE, UNSP (4) Coronary artery disease Assessment/Plan: -Plavix, Lipitor Code(s): I25.10 - ATHSCL HEART DISEASE OF [place] CORONARY ARTERY W/O ANG PCTRS Qualifiers: Coronary Disease-Associated Artery/Lesion type: [place] artery [place] vs. transplanted heart: [place] heart Associated angina: without angina Qualified Code(s): I25.10 - Atherosclerotic heart disease of [place] coronary artery without angina pectoris (5) Type 2 diabetes mellitus Assessment/Plan: -BGM ACHS -Levemir -ISS -diabetic diet -HgA1c 6.4% Code(s): E11.9 - TYPE 2 DIABETES MELLITUS WITHOUT COMPLICATIONS Qualifiers: Diabetes mellitus correction insulin use: without correction use Diabetes mellitus complication status: without complication Qualified Code(s): E11.9 - Type 2 diabetes mellitus without complications (6) HTN (hypertension) Assessment/Plan: -Bystolic -low Na/diabetic diet Code(s): I10 - ESSENTIAL (PRIMARY) HYPERTENSION Assessment/Plan see problem list dvt ppx
--- NOTE | 2019-05-12 16:31 | PN ---
Progress Note, Physician History of Present Illness: Pt seen and examined at bedside. He has no new complaints. - Current Medication List Current Medications: Active Medications Acetaminophen (Tylenol -) 650 mg PO Q6H PRN PRN Reason: PAIN LEVEL 1-5 Atorvastatin Calcium (Lipitor -) 40 mg PO HS [facility] Last Admin: 05/11/19 21:51 Dose: 40 mg Clopidogrel Bisulfate (Plavix -) 75 mg PO DAILY [facility] Last Admin: 05/12/19 09:19 Dose: 75 mg Furosemide (Lasix -) 40 mg PO DAILY [facility] Last Admin: 05/12/19 09:19 Dose: 40 mg Heparin Sodium (Porcine) (Heparin -) 5,000 unit SQ BID [facility] Last Admin: 05/12/19 09:19 Dose: 5,000 unit Cefazolin Sodium 1 gm/ (Dextrose) 50 mls @ 100 mls/hr IVPB BID [facility] Last Admin: 05/12/19 09:19 Dose: 100 mls/hr Insulin Aspart (Novolog Vial Sliding Scale -) 1 vial SQ [facility]; Protocol Last Admin: 05/12/19 15:53 Dose: 2 units Insulin Detemir (Levemir Vial) 20 units SQ [facility] Last Admin: 05/11/19 21:50 Dose: 20 units Nebivolol (Bystolic -) 10 mg PO DAILY [facility] Last Admin: 05/12/19 09:19 Dose: 10 mg Silver Sulfadiazine (Silvadene -) 1 applic TP BID [facility] Last Admin: 05/12/19 09:19 Dose: Not Given - Objective Vital Signs: Vital Signs Temperature 97.6 F 05/12/19 14:18 Pulse Rate 73 05/12/19 14:18 Respiratory Rate 18 05/12/19 10:00 Blood Pressure 148/72 05/12/19 14:18 O2 Sat by Pulse Oximetry (%) 95 05/12/19 09:00 Constitutional: Yes: Calm HENT: Yes: Atraumatic Neck: Yes: Supple Cardiovascular: Yes: S1, S2 Respiratory: Yes: CTA Bilaterally Gastrointestinal: Yes: Soft Genitourinary: Yes: WNL Musculoskeletal: Yes: WNL Edema: Yes Edema: LLE: 1+, RLE: 1+ Wound/Incision: Yes: Dressing Dry and Intact Neurological: Yes: Oriented Psychiatric: Yes: Oriented Labs: CBC, BMP 05/12/19 07:55 05/12/19 07:55 Problem List - Problems (1) CKD (chronic kidney disease) Code(s): N18.9 - CHRONIC KIDNEY DISEASE, UNSPECIFIED (2) Infected blister of lower leg Code(s): S80.829A - BLISTER (NONTHERMAL), UNSPECIFIED LOWER LEG, INIT ENCNTR; L08.9 - LOCAL INFECTION OF THE SKIN AND SUBCUTANEOUS TISSUE, UNSP (3) Chronic hepatitis B Code(s): B18.1 - CHRONIC VIRAL HEPATITIS B WITHOUT DELTA-AGENT (4) Diabetes Code(s): E11.9 - TYPE 2 DIABETES MELLITUS WITHOUT COMPLICATIONS Qualifiers: Diabetes mellitus type: type 2 (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 Code(s): E11.69 - TYPE 2 DIABETES MELLITUS WITH OTHER SPECIFIED COMPLICATION; I43 - CARDIOMYOPATHY IN DISEASES CLASSIFIED ELSEWHERE Assessment/Plan Current Medications Generic Name Dose Route Start Last Admin Trade Name Freq PRN Reason Stop Dose Admin Acetaminophen 650 mg 05/09/19 01:27 Tylenol - PO Q6H PRN PAIN LEVEL 1-5 Atorvastatin Calcium 40 mg 05/09/19 22:00 05/11/19 21:51 Lipitor - PO 40 mg HS [facility] Administration Clopidogrel Bisulfate 75 mg 05/09/19 10:00 05/12/19 09:19 Plavix - PO 75 mg DAILY [facility] Administration Furosemide 40 mg 05/12/19 10:00 05/12/19 09:19 Lasix - PO 40 mg DAILY [facility] Administration Heparin Sodium (Porcine) 5,000 unit 05/09/19 10:00 05/12/19 09:19 Heparin - SQ 5,000 unit BID [facility] Administration Cefazolin Sodium 1 gm/ 50 mls @ 100 mls/hr 05/09/19 22:00 05/12/19 09:19 Dextrose IVPB 100 mls/hr BID [facility] Administration Insulin Aspart 1 vial 05/09/19 07:00 05/12/19 15:53 Novolog Vial Sliding Scale - SQ 2 units ACHS [facility] Administration Protocol Insulin Detemir 20 units 05/09/19 22:00 05/11/19 21:50 Levemir Vial SQ 20 units HS [facility] Administration Nebivolol 10 mg 05/10/19 10:00 05/12/19 09:19 Bystolic - PO 10 mg DAILY [facility] Administration Silver Sulfadiazine 1 applic 05/11/19 10:00 05/12/19 09:19 Silvadene - TP Not Given BID [facility] Impression 1. CKD 2. DM 3. lower ext cellulitis 4. htn 5. hep b 6. proteinuria 7. chf Plan - cont with lasix - discussed low sodium diet - renal ultrasound reviewed - will see pt in office - DM can explain ua findings and proteinuria however he will still need a workup - avoid nsaids
--- NOTE | 2019-05-12 17:14 | PN ---
Progress Note (short form) - Note Progress Note: doing well leg swelling improved Vital Signs Period Temp Pulse Resp BP Sys/[place] Pulse Ox Last 24 Hr 97.6 F-98.7 F 73-82 18-20 148-155/70-82 95-96 cor-rrr lungs clear abd soft,nt ext less edema minimal erythema no drainage CBC, BMP 05/12/19 07:55 05/12/19 07:55 Microbiology 05/08/19 22:25 Blood - Peripheral Venous Blood Culture - Preliminary NO GROWTH OBTAINED AFTER 72 HOURS, INCUBATION TO CONTINUE FOR 2 DAYS. 05/08/19 22:29 Blood - Peripheral Venous Blood Culture - Preliminary NO GROWTH OBTAINED AFTER 72 HOURS, INCUBATION TO CONTINUE FOR 2 DAYS. 05/09/19 01:21 Leg - Left Lower Gram Stain - Final 05/09/19 01:21 Leg - Left Lower Wound Culture - Final Pseudomonas Aeruginosa 05/08/19 22:25 Urine - Urine Clean Catch Urine Culture - Final NO GROWTH OBTAINED a/p venous stasis celllulitis resolving pseudomonas is skin colonization can switch to keflex 500 bid for another 7 days continue wrapping legs and diuretics f/u wound care clinic
[2019-05-12] MEDS: ATORVASTATIN CA 40 MG TABLET (FP) PO SCH (21:46)
[2019-05-12] MEDS: INSULIN (LEVEMIR) 100 UNITS/ML UNITS SQ SCH (21:46)
--- NOTE | 2019-05-13 00:43 | PN ---
Progress Note, Physician Chief Complaint: NO COMPLAINT - Current Medication List Current Medications: Active Medications Acetaminophen (Tylenol -) 650 mg PO Q6H PRN PRN Reason: PAIN LEVEL 1-5 Atorvastatin Calcium (Lipitor -) 40 mg PO HS [facility] Last Admin: 05/12/19 21:46 Dose: 40 mg Clopidogrel Bisulfate (Plavix -) 75 mg PO DAILY [facility] Last Admin: 05/12/19 09:19 Dose: 75 mg Furosemide (Lasix -) 40 mg PO DAILY [facility] Last Admin: 05/12/19 09:19 Dose: 40 mg Heparin Sodium (Porcine) (Heparin -) 5,000 unit SQ BID [facility] Last Admin: 05/12/19 21:46 Dose: 5,000 unit Cefazolin Sodium 1 gm/ (Dextrose) 50 mls @ 100 mls/hr IVPB BID [facility] Last Admin: 05/12/19 21:46 Dose: 100 mls/hr Insulin Aspart (Novolog Vial Sliding Scale -) 1 vial SQ [facility]; Protocol Last Admin: 05/12/19 21:47 Dose: 2 units Insulin Detemir (Levemir Vial) 20 units SQ [facility] Last Admin: 05/12/19 21:46 Dose: 20 units Nebivolol (Bystolic -) 10 mg PO DAILY [facility] Last Admin: 05/12/19 09:19 Dose: 10 mg Silver Sulfadiazine (Silvadene -) 1 applic TP BID [facility] Last Admin: 05/12/19 21:48 Dose: Not Given - Objective Vital Signs: Vital Signs Temperature 97.9 F 05/12/19 22:00 Pulse Rate 76 05/12/19 22:00 Respiratory Rate 20 05/12/19 22:00 Blood Pressure 151/80 05/12/19 22:00 O2 Sat by Pulse Oximetry (%) 95 05/12/19 21:00 Constitutional: Yes: Calm Eyes: Yes: EOM Intact HENT: Yes: Normocephalic Neck: Yes: Trachea Midline Cardiovascular: Yes: Regular Rate and Rhythm Respiratory: Yes: CTA Bilaterally Gastrointestinal: Yes: Normal Bowel Sounds ...Rectal Exam: Yes: Deferred Genitourinary: Yes: WNL Breast(s): Yes: WNL Musculoskeletal: Yes: Back Pain, Joint Stiffness, Muscle Weakness Extremities: Yes: Delayed Capillary Refill, Erythema Edema: LLE: 1+, RLE: 1+ Wound/Incision: Yes: Dressing Dry and Intact Neurological: Yes: Alert, Oriented Labs: CBC, BMP 05/12/19 07:55 05/12/19 07:55 Problem List - Problems (1) [place] (acute kidney injury) Code(s): N17.9 - ACUTE KIDNEY FAILURE, UNSPECIFIED (2) Acute on chronic diastolic (congestive) heart failure Code(s): I50.33 - ACUTE ON CHRONIC DIASTOLIC (CONGESTIVE) HEART FAILURE (3) CKD (chronic kidney disease) Code(s): N18.9 - CHRONIC KIDNEY DISEASE, UNSPECIFIED (4) HTN (hypertension) Code(s): I10 - ESSENTIAL (PRIMARY) HYPERTENSION (5) Infected blister of lower leg Code(s): S80.829A - BLISTER (NONTHERMAL), UNSPECIFIED LOWER LEG, INIT ENCNTR; L08.9 - LOCAL INFECTION OF THE SKIN AND SUBCUTANEOUS TISSUE, UNSP (6) Multiple blisters Code(s): R23.8 - OTHER SKIN CHANGES (7) Abdominal distension Code(s): R14.0 - ABDOMINAL DISTENSION (GASEOUS) (8) [id number] kidney injury Code(s): N17.9 - ACUTE KIDNEY FAILURE, UNSPECIFIED; N18.9 - CHRONIC KIDNEY DISEASE, UNSPECIFIED Assessment/Plan Current Active Problems [place] (acute kidney injury) (Acute) Acute on chronic diastolic (congestive) heart failure (Acute) CKD (chronic kidney disease) (Acute) HTN (hypertension) (Acute) Infected blister of lower leg (Acute) Multiple blisters (Acute) Abnormal Lab Results 05/12/19 05/12/19 07:55 07:55 RBC 3.29 L Hgb 8.4 L Hct 26.3 L MCV 79.9 L MCH 25.4 L MCHC 31.8 L RDW 16.0 H Chloride 111 H Anion Gap 7 L BUN 44.4 H Creatinine 1.8 H Random Glucose 170 H Calcium 8.3 L AST 9 L Albumin 3.1 L Abnormal Lab Results 05/12/19 05/12/19 07:55 07:55 RBC 3.29 L Hgb 8.4 L Hct 26.3 L MCV 79.9 L MCH 25.4 L MCHC 31.8 L RDW 16.0 H Chloride 111 H Anion Gap 7 L BUN 44.4 H Creatinine 1.8 H Random Glucose 170 H Calcium 8.3 L AST 9 L Albumin 3.1 L Laboratory Results - last 24 hr 05/12/19 05/12/19 05/12/19 05:40 07:55 07:55 WBC 7.0 RBC 3.29 L Hgb 8.4 L Hct 26.3 L MCV 79.9 L MCH 25.4 L MCHC 31.8 L RDW 16.0 H Plt Count 270 MPV 8.5 Sodium 140 Potassium 4.5 Chloride 111 H Carbon Dioxide 21 Anion Gap 7 L BUN 44.4 H Creatinine 1.8 H Est GFR (CKD-EPI)AfAm 45.09 Est GFR (CKD-EPI)NonAf 38.91 POC Glucometer 189 Random Glucose 170 H Calcium 8.3 L Total Bilirubin 0.2 AST 9 L ALT 15 Alkaline Phosphatase 67 Total Protein 6.6 Albumin 3.1 L 05/12/19 05/12/19 15:47 20:35 WBC RBC Hgb Hct MCV MCH MCHC RDW Plt Count MPV Sodium Potassium Chloride Carbon Dioxide Anion Gap BUN Creatinine Est GFR (CKD-EPI)AfAm Est GFR (CKD-EPI)NonAf POC Glucometer 172 223 Random Glucose Calcium Total Bilirubin AST ALT Alkaline Phosphatase Total Protein Albumin PLAN: WOUND CARE BGM QID NOVOLOG SCALE CONTINUE LEVEMIR OUTPATIENT FOLLOW UP SLEEP APNEA TESTING OP
[2019-05-13] MEDS: INSULIN SLIDING SCALE (NOVOLOG) 1 VIAL SQ SCH ×2 (06:25→12:51)
[2019-05-13] MEDS ORDERED: INSULIN (NOVOLOG) ASPART 100 UNITS/ML 10ML VIAL ONE (06:25)
[2019-05-13] MEDS ORDERED: DEXTROSE 5%-WATER - 50 ML IVPB ONE (09:01)
[2019-05-13] MEDS ORDERED: ceFAZolin SODIUM 1 GM VIAL ONE (09:01)
[2019-05-13 09:20] LABS: HEMOGLOBIN 8.4 GM/dL (11.7-16.9); MCH 25.8 pg (25.7-33.7); MCHC 32.4 g/dl (32.0-35.9); MEAN CELL VOLUME 79.4 fl (80-96); MEAN PLT VOLUME 8.2 fl (7.5-11.1); PLATELET COUNT 274 K/MM3 (134-434); RBC 3.28 M/mm3 (4.00-5.60); RDW 15.7 % (11.9-15.9); WHITE BLOOD COUNT 6.7 K/mm3 (4.0-10.0)
--- NOTE | 2019-05-13 09:29 | DS ---
Physical Examination Vital Signs: Vital Signs Temperature 99.2 F 05/13/19 05:50 Pulse Rate 78 05/13/19 05:50 Respiratory Rate 20 05/13/19 05:50 Blood Pressure 158/96 05/13/19 05:50 O2 Sat by Pulse Oximetry (%) 95 05/12/19 21:00 Findings/Remarks: Laboratory Results - last 24 hr 05/12/19 05/12/19 05/12/19 07:55 15:47 20:35 WBC RBC Hgb Hct MCV MCH MCHC RDW Plt Count MPV Sodium 140 Potassium 4.5 Chloride 111 H Carbon Dioxide 21 Anion Gap 7 L BUN 44.4 H Creatinine 1.8 H Est GFR (CKD-EPI)AfAm 45.09 Est GFR (CKD-EPI)NonAf 38.91 POC Glucometer 172 223 Random Glucose 170 H Calcium 8.3 L Total Bilirubin 0.2 AST 9 L ALT 15 Alkaline Phosphatase 67 Total Protein 6.6 Albumin 3.1 L 05/13/19 05/13/19 05/13/19 05:48 08:20 08:20 WBC 6.7 RBC 3.28 L Hgb 8.4 L Hct 26.0 L MCV 79.4 L MCH 25.8 MCHC 32.4 RDW 15.7 Plt Count 274 MPV 8.2 Sodium 140 Potassium 4.5 Chloride 110 H Carbon Dioxide 23 Anion Gap 7 L BUN 46.5 H Creatinine 1.6 H Est GFR (CKD-EPI)AfAm 51.99 Est GFR (CKD-EPI)NonAf 44.86 POC Glucometer 130 Random Glucose 123 H Calcium 8.5 Total Bilirubin 0.4 AST 11 L ALT 14 Alkaline Phosphatase 66 Total Protein 6.8 Albumin 3.2 L Active Medications Generic Name Dose Route Start Last Admin Trade Name Freq PRN Reason Stop Dose Admin Acetaminophen 650 mg 05/09/19 01:27 Tylenol - PO Q6H PRN PAIN LEVEL 1-5 Atorvastatin Calcium 40 mg 05/09/19 22:00 05/12/19 21:46 Lipitor - PO 40 mg HS [facility] Administration Clopidogrel Bisulfate 75 mg 05/09/19 10:00 05/13/19 09:39 Plavix - PO 75 mg DAILY [facility] Administration Furosemide 40 mg 05/12/19 10:00 05/13/19 09:39 Lasix - PO 40 mg DAILY [facility] Administration Heparin Sodium (Porcine) 5,000 unit 05/09/19 10:00 05/13/19 09:39 Heparin - SQ 5,000 unit BID [facility] Administration Cefazolin Sodium 1 gm/ 50 mls @ 100 mls/hr 05/09/19 22:00 05/13/19 09:40 Dextrose IVPB 100 mls/hr BID [facility] Administration Insulin Aspart 1 vial 05/09/19 07:00 05/13/19 06:25 Novolog Vial Sliding Scale - SQ Not Given ACHS [facility] Protocol Insulin Detemir 20 units 05/09/19 22:00 05/12/19 21:46 Levemir Vial SQ 20 units HS [facility] Administration Nebivolol 10 mg 05/10/19 10:00 05/13/19 09:39 Bystolic - PO 10 mg DAILY [facility] Administration Silver Sulfadiazine 1 applic 05/11/19 10:00 05/13/19 09:57 Silvadene - TP 1 applic BID [facility] Administration Microbiology 05/08/19 22:25 Blood - Peripheral Venous Blood Culture - Preliminary NO GROWTH OBTAINED AFTER 96 HOURS, INCUBATION TO CONTINUE FOR 1 DAYS. 05/08/19 22:29 Blood - Peripheral Venous Blood Culture - Preliminary NO GROWTH OBTAINED AFTER 96 HOURS, INCUBATION TO CONTINUE FOR 1 DAYS. 05/09/19 01:21 Leg - Left Lower Gram Stain - Final 05/09/19 01:21 Leg - Left Lower Wound Culture - Final Pseudomonas Aeruginosa 05/08/19 22:25 Urine - Urine Clean Catch Urine Culture - Final NO GROWTH OBTAINED Constitutional: Yes: No Distress, Calm Eyes: Yes: Conjunctiva Clear HENT: Yes: Atraumatic Cardiovascular: Yes: Regular Rate and Rhythm Respiratory: Yes: Regular, CTA Bilaterally Gastrointestinal: Yes: Normal Bowel Sounds, Soft, Abdomen, Obese Musculoskeletal: Yes: WNL Extremities: Yes: WNL Edema: No Integumentary: Yes: Venous Stasis Changes, Other Wound/Incision: Yes: Dressing Dry and Intact Neurological: Yes: Alert, Oriented Psychiatric: Yes: Alert, Oriented Labs: CBC, BMP 05/13/19 08:20 Discharge Summary Problems reviewed: Yes Reason For Visit: ACUTE KIDNEY INJURY/MULTIPLE BLISTERS/ACUTE ON Current Active Problems [place] (acute kidney injury) (Acute) Acute on chronic diastolic (congestive) heart failure (Acute) CKD (chronic kidney disease) (Acute) HTN (hypertension) (Acute) Infected blister of lower leg (Acute) Multiple blisters (Acute) Hospital Course: 64 year old male with a significant medical history of HTN, HLD, CAD s/p Stent( 2012). Diastolic Dysfunction, PAD s/p L SFA [place] Stent, L Carotid Stenting, diastolic CHF, and Hepatitis B arrived to ED for evaluation of bilateral lower extremity wounds. The patient reports that 5 days ago he noticed fluid collections on both legs that eventually ruptured. He states that he has been applying antibiotic ointment and wrapping his legs since they ruptured. 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 Patient denies headache, lightheadedness. Denies fever, chills. Denies chest pain, shortness of breath. Denies nausea, vomiting, diarrhea, abdominal pain. Patient was followed by ID on admission. Wound culture taken and positive with pseudomonas. Received IV antibiotic therapy with good effect. Antibiotics swtiched to oral and will be discharged home with visiting nurse for wound care. 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 daily dressing changes: cleanse wounds daily, apply silver alginate and wrap legs Visiting nurse service for wound care continue with Keflex 500mg twice daily x 7 days continue with medication as prescribed return to ER if develop severe pain, respiratory distress, chest pain, fever Referrals: Bandar Camacho DO [Staff Physician] - Broderick Thapa MD [Primary Care Provider] - Leandra Nassar MD [Staff Physician] - Disposition: VNS/HOME HEALTH CARE - Home Medications Comprehensive Discharge Medication List: Ambulatory Orders Nebivolol [Bystolic -] 5 mg PO DAILY 06/21/18 Amlodipine Besylate [Norvasc -] 5 mg PO DAILY #30 tablet 07/03/18 Atorvastatin Ca [Lipitor] 40 mg PO HS #30 tablet 07/03/18 Clopidogrel Bisulfate [Plavix] 75 mg PO DAILY #30 tablet 07/03/18 Furosemide [Lasix] 20 mg PO DAILY #30 tablet 07/03/18 Insulin (Levemir) [Levemir Vial] 10 units SQ AM #100 units 07/03/18 Insulin (Levemir) [Levemir Vial] 25 units SQ HS #100 units 07/03/18 Insulin Sliding Scale [Novolog Vial Sliding Scale -] 1 vial SQ [facility] #1 units 04/11 Sitagliptin Phos/Metformin HCl [Janumet 50-1,000 mg Tablet] 1 each PO BID #60 tablet 07/03/18 clonazePAM [Klonopin -] 0.5 mg PO HS 1 Days #30 tablet MDD 1 07/03/18
[2019-05-13 09:35] VITALS: BP 153/74; PULSE 77; TEMP 98.1
[2019-05-13] MEDS: FUROSEMIDE 40 MG TABLET (FP) PO SCH (09:39)
[2019-05-13] MEDS: NEBIVOLOL 10 MG TABLET (FP) PO SCH (09:39)
[2019-05-13] MEDS: CLOPIDOGREL BISULFATE 75 MG TABLET (FP) PO SCH (09:39)
[2019-05-13] MEDS: HEPARIN NA (PORCINE) 5,000 UNITS/ML 1ML VIAL SQ SCH (09:39)
[2019-05-13] MEDS: CEFAZOLIN 1 GM in DEXTROSE 5%-WATER - 50 ML IVPB SCH (09:40)
[2019-05-13] MEDS: SILVER SULFADIAZINE 1% TOP CREAM 50 GM JAR TP SCH ×2 (09:40→09:57)
[2019-05-13] MEDS ORDERED: PT OWN MED DRAWER 7, Y5N ONE (09:46)
[2019-05-13 09:53] LABS: ALBUMIN 3.2 g/dl (3.4-5.0); BILIRUBIN,TOTAL 0.4 mg/dL (0.2-1); BLOOD UREA NITROGEN 46.5 mg/dL (7-18); CALCIUM 8.5 mg/dL (8.5-10.1); CREATININE 1.6 mg/dL (0.55-1.3); POTASSIUM 4.5 mmol/L (3.5-5.1); TOT PROT 6.8 g/dl (6.4-8.2)
--- NOTE | 2019-05-13 12:26 | PN ---
Progress Note, Physician History of Present Illness: Pt seen and examined at bedside. He is awake and alert. He denies shortness of breath. - Current Medication List Current Medications: Active Medications Acetaminophen (Tylenol -) 650 mg PO Q6H PRN PRN Reason: PAIN LEVEL 1-5 Atorvastatin Calcium (Lipitor -) 40 mg PO HS [facility] Last Admin: 05/12/19 21:46 Dose: 40 mg Clopidogrel Bisulfate (Plavix -) 75 mg PO DAILY [facility] Last Admin: 05/13/19 09:39 Dose: 75 mg Furosemide (Lasix -) 40 mg PO DAILY [facility] Last Admin: 05/13/19 09:39 Dose: 40 mg Heparin Sodium (Porcine) (Heparin -) 5,000 unit SQ BID [facility] Last Admin: 05/13/19 09:39 Dose: 5,000 unit Cefazolin Sodium 1 gm/ (Dextrose) 50 mls @ 100 mls/hr IVPB BID [facility] Last Admin: 05/13/19 09:40 Dose: 100 mls/hr Insulin Aspart (Novolog Vial Sliding Scale -) 1 vial SQ [facility]; Protocol Last Admin: 05/13/19 06:25 Dose: Not Given Insulin Detemir (Levemir Vial) 20 units SQ [facility] Last Admin: 05/12/19 21:46 Dose: 20 units Nebivolol (Bystolic -) 10 mg PO DAILY [facility] Last Admin: 05/13/19 09:39 Dose: 10 mg Silver Sulfadiazine (Silvadene -) 1 applic TP BID [facility] Last Admin: 05/13/19 09:57 Dose: 1 applic - Objective Vital Signs: Vital Signs Temperature 98.1 F 05/13/19 09:34 Pulse Rate 77 05/13/19 09:34 Respiratory Rate 19 05/13/19 09:34 Blood Pressure 153/74 05/13/19 09:34 O2 Sat by Pulse Oximetry (%) 95 05/12/19 21:00 Constitutional: Yes: Calm Eyes: Yes: Conjunctiva Clear HENT: Yes: Atraumatic Neck: Yes: Supple Cardiovascular: Yes: S1, S2 Respiratory: Yes: CTA Bilaterally Gastrointestinal: Yes: Normal Bowel Sounds, Soft Genitourinary: Yes: WNL Musculoskeletal: Yes: WNL Edema: Yes Edema: LLE: 1+, RLE: 1+ Wound/Incision: Yes: Dressing Dry and Intact Neurological: Yes: Oriented Psychiatric: Yes: Oriented Labs: CBC, BMP 05/13/19 08:20 05/13/19 08:20 Problem List - Problems (1) CKD (chronic kidney disease) Code(s): N18.9 - CHRONIC KIDNEY DISEASE, UNSPECIFIED (2) Infected blister of lower leg Code(s): S80.829A - BLISTER (NONTHERMAL), UNSPECIFIED LOWER LEG, INIT ENCNTR; L08.9 - LOCAL INFECTION OF THE SKIN AND SUBCUTANEOUS TISSUE, UNSP (3) Chronic hepatitis B Code(s): B18.1 - CHRONIC VIRAL HEPATITIS B WITHOUT DELTA-AGENT (4) Diabetes Code(s): E11.9 - TYPE 2 DIABETES MELLITUS WITHOUT COMPLICATIONS Qualifiers: Diabetes mellitus type: type 2 (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 Code(s): E11.69 - TYPE 2 DIABETES MELLITUS WITH OTHER SPECIFIED COMPLICATION; I43 - CARDIOMYOPATHY IN DISEASES CLASSIFIED ELSEWHERE Assessment/Plan Current Medications Generic Name Dose Route Start Last Admin Trade Name Freq PRN Reason Stop Dose Admin Acetaminophen 650 mg 05/09/19 01:27 Tylenol - PO Q6H PRN PAIN LEVEL 1-5 Atorvastatin Calcium 40 mg 05/09/19 22:00 05/12/19 21:46 Lipitor - PO 40 mg HS [facility] Administration Clopidogrel Bisulfate 75 mg 05/09/19 10:00 05/13/19 09:39 Plavix - PO 75 mg DAILY [facility] Administration Furosemide 40 mg 05/12/19 10:00 05/13/19 09:39 Lasix - PO 40 mg DAILY [facility] Administration Heparin Sodium (Porcine) 5,000 unit 05/09/19 10:00 05/13/19 09:39 Heparin - SQ 5,000 unit BID [facility] Administration Cefazolin Sodium 1 gm/ 50 mls @ 100 mls/hr 05/09/19 22:00 05/13/19 09:40 Dextrose IVPB 100 mls/hr BID [facility] Administration Insulin Aspart 1 vial 05/09/19 07:00 05/13/19 06:25 Novolog Vial Sliding Scale - SQ Not Given ACHS [facility] Protocol Insulin Detemir 20 units 05/09/19 22:00 05/12/19 21:46 Levemir Vial SQ 20 units HS [facility] Administration Nebivolol 10 mg 05/10/19 10:00 05/13/19 09:39 Bystolic - PO 10 mg DAILY [facility] Administration Silver Sulfadiazine 1 applic 05/11/19 10:00 05/13/19 09:57 Silvadene - TP 1 applic BID [facility] Administration Impression 1. CKD 2. DM 3. lower ext cellulitis 4. htn 5. hep b 6. proteinuria 7. 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
== END 2019-05-13 13:12 | disposition home health service (06) | DRG 682 ==
LOC: JER 19:09 → JERBED 21:57 → J6S 05-09 15:05
PROVIDERS: ADMIT Internal Medicine; ATTEND Family Medicine
DX: N17.9 Acute kidney failure, unspecified (principal); I50.33 Acute on chronic diastolic (congestive) heart failure; I13.0 Hypertensive heart and chronic kidney disease with heart failure and stage 1 through stage 4 chronic kidney disease, or unspecified chronic kidney disease; B18.1 Chronic viral hepatitis B without delta-agent; L03.116 Cellulitis of left lower limb; N18.9 Chronic kidney disease, unspecified; S80.829A Blister (nonthermal), unspecified lower leg, initial encounter; L08.9 Local infection of the skin and subcutaneous tissue, unspecified; X58.XXXA Exposure to other specified factors, initial encounter; Y93.9 Activity, unspecified; Y92.89 Other specified places as the place of occurrence of the external cause; E11.9 Type 2 diabetes mellitus without complications; I87.2 Venous insufficiency (chronic) (peripheral); I25.10 Atherosclerotic heart disease of native coronary artery without angina pectoris; Z98.61 Coronary angioplasty status; E78.5 Hyperlipidemia, unspecified; I73.9 Peripheral vascular disease, unspecified
CPT/HCPCS: 36415; 71045-TC-FY; 76775-TC; 80048; 80053; 81003; 82570; 82962; 83036; 83880; 84156; 85025; 85027; 87040; 87070; 87086; 87186; 87205; 93005; 93010; 93970-TC; 97116-GP; 97161-GP; 99285-25; J1644

== ENCOUNTER 2022-08-24 10:58 | Observation (INO) | payer OTHER ==
[2022-08-24 11:04] VITALS: RESP 20
[2022-08-24 12:35] LABS: BASO % 2.2 % (0-2.0); EOS % 1.8 % (0-4.5); HEMATOCRIT 25.9 % (35.4-49); HEMOGLOBIN 8.3 GM/dL (11.7-16.9); MCH 27.2 pg (25.7-33.7); MEAN CELL VOLUME 85.2 fl (80-96); MEAN PLT VOLUME 8.9 fl (7.5-11.1); MONO % 7.4 % (3.8-10.2); NEUT % 78.6 % (42.8-82.8); PLATELET COUNT 125 10^3/uL (134-434); RBC 3.04 M/mm3 (4.00-5.60); RDW 16.5 % (11.9-15.9); WHITE BLOOD COUNT 5.1 K/mm3 (4.0-10.0)
[2022-08-24 13:12] LABS: ALBUMIN 3.7 g/dl (3.4-5.0)
[2022-08-24 13:15] LABS: CREATININE 3.5 mg/dL (0.55-1.3)
[2022-08-24] MEDS ORDERED: SODIUM ZIRCONIUM CYCLOSILICATE (LOKELMA) 5 GM PACKET ONE (13:26)
[2022-08-24] MEDS ORDERED: DEXTROSE 50%-WATER 25 GM/50 ML DISP.SYRIN ONE (13:26)
[2022-08-24] MEDS ORDERED: DEXTROSE 50%-WATER - 25 GM/50 ML VIAL IVPUSH ONE (13:32)
[2022-08-24] MEDS ORDERED: SODIUM ZIRCONIUM CYCLOSILICATE (LOKELMA) 5 GM PACKET PO ONE (13:32)
[2022-08-24] MEDS ORDERED: INSULIN REGULAR HUMAN 100 UNITS/ML *VIAL IVPUSH ONE (13:32)
[2022-08-24 13:37] LABS: BILIRUBIN,TOTAL 0.3 mg/dL (0.2-1)
[2022-08-24] MEDS ORDERED: CALCIUM GLUCONATE 10% - 1,000 MG/10 ML VIAL ONE (13:54)
[2022-08-24] MEDS ORDERED: CALCIUM GLUCONATE 10% - 1,000 MG/10 ML VIAL IVPB ONE (13:54)
[2022-08-24] MEDS ORDERED: CALCIUM GLUC IN NACL, ISO-OSM 1 GM/50 ML BAG IVPB ONE (13:55)
[2022-08-24] MEDS ORDERED: SODIUM BICARBONATE 8.4% 50 MEQ/50 ML VIAL ONE (14:03)
[2022-08-24] MEDS ORDERED: FUROSEMIDE 40 MG/4 ML INJECTABLE VIAL ONE (14:04)
[2022-08-24] MEDS ORDERED: SODIUM BICARBONATE 8.4% 50 MEQ/50 ML DISP.SYRIN IVPUSH ONE (14:10)
[2022-08-24] MEDS ORDERED: FUROSEMIDE 40 MG/4 ML INJECTABLE VIAL IVPUSH ONE (14:11)
[2022-08-24 16:35] LABS: BLOOD UREA NITROGEN 83.6 mg/dL (7-18); CALCIUM 7.2 mg/dL (8.5-10.1)
[2022-08-24 16:39] LABS: CREATININE 3.5 mg/dL (0.55-1.3)
[2022-08-24 20:48] VITALS: BMI 37.8
[2022-08-24] MEDS ORDERED: INSULIN SLIDING SCALE (NOVOLOG) 1 VIAL SQ SCH (22:00)
[2022-08-24] MEDS ORDERED: ATORVASTATIN CA 40 MG TABLET (FP) PO SCH (22:00)
[2022-08-24] MEDS ORDERED: INSULIN (LEVEMIR) 100 UNITS/ML UNITS SQ SCH (22:00)
[2022-08-24] MEDS: CARVEDILOL 6.25 MG TABLET (FP) PO SCH (22:07)
[2022-08-24] MEDS: SODIUM ZIRCONIUM CYCLOSILICATE (LOKELMA) 5 GM PACKET PO SCH (22:08)
[2022-08-24] MEDS: INSULIN SLIDING SCALE (NOVOLOG) 1 VIAL SQ SCH (22:14)
[2022-08-25 05:34] VITALS: TEMP 98.4
[2022-08-25] MEDS ORDERED: SODIUM ZIRCONIUM CYCLOSILICATE (LOKELMA) 5 GM PACKET PO SCH (06:00)
[2022-08-25] MEDS ORDERED: SODIUM ZIRCONIUM CYCLOSILICATE (LOKELMA) 5 GM PACKET PO ONE ×2 (06:00→13:32)
[2022-08-25] MEDS: INSULIN SLIDING SCALE (NOVOLOG) 1 VIAL SQ SCH ×3 (06:01→11:43)
[2022-08-25 07:37] LABS: CHLORIDE 111 mmol/L (98-107); SODIUM 140 mmol/L (136-145)
[2022-08-25 07:39] LABS: ALBUMIN 3.6 g/dl (3.4-5.0); ANION GAP 8 MMOL/L (8-16); BLOOD UREA NITROGEN 78.1 mg/dL (7-18); CO2 21 mmol/L (21-32); GLUCOSE,RANDOM 121 mg/dL (74-106)
[2022-08-25 07:42] LABS: CREATININE 3.4 mg/dL (0.55-1.3); SGPT/ALT 21 U/L (13-61)
[2022-08-25 07:43] LABS: SGOT/AST 10 U/L (15-37)
[2022-08-25 07:44] VITALS: BP 141/57; PULSE 70
[2022-08-25 07:44] LABS: BILIRUBIN,TOTAL 0.4 mg/dL (0.2-1); TOT PROT 6.9 g/dl (6.4-8.2)
[2022-08-25 07:45] LABS: ALK PHOS 74 U/L (45-117)
[2022-08-25 07:46] LABS: CALCIUM 6.8 mg/dL (8.5-10.1)
[2022-08-25] MEDS: CARVEDILOL 6.25 MG TABLET (FP) PO SCH (09:16)
[2022-08-25] MEDS: SODIUM ZIRCONIUM CYCLOSILICATE (LOKELMA) 5 GM PACKET PO SCH (09:17)
[2022-08-25] MEDS ORDERED: CALCIUM GLUCONATE 10% - 1,000 MG/10 ML VIAL IVPB ONE (09:30)
[2022-08-25] MEDS ORDERED: CALCITRIOL 0.25 MCG CAPSULE (FP) PO SCH (10:00)
[2022-08-25] MEDS ORDERED: CLOPIDOGREL BISULFATE 75 MG TABLET (FP) PO SCH (10:00)
[2022-08-25] MEDS ORDERED: CALCIUM 500MG/VIT-D 200 UNITS COMBO TABLET (FP) PO SCH (10:00)
[2022-08-25 10:14] LABS: MAGNESIUM 1.8 mg/dL (1.8-2.4)
[2022-08-25 10:18] LABS: PHOSPHOROUS 5.2 mg/dL (2.5-4.9)
[2022-08-25] MEDS ORDERED: CALCIUM ACETATE 667 MG CAPSULE (FP) PO SCH (12:00)
== END 2022-08-25 14:38 | disposition home or self-care (01) ==
LOC: JER 10:58 → SUPCPDRO 10:58 → UNDOADMOB 14:22 → J4W 14:22 → INTOOBSV 14:22 → JERBED 14:22 → J4W 18:25
PROVIDERS: ADMIT Internal Medicine; ATTEND Internal Medicine
PROC: 3E033GC Introduction of Other Therapeutic Substance into Peripheral Vein, Percutaneous Approach (ICD-10-PCS; principal; 2022-08-24)
PROC: 3E013VG Introduction of Insulin into Subcutaneous Tissue, Percutaneous Approach (ICD-10-PCS; 2022-08-24)
PROC: 3E033VG Introduction of Insulin into Peripheral Vein, Percutaneous Approach (ICD-10-PCS; 2022-08-24)
DX: E87.5 Hyperkalemia (principal); I13.10 Hypertensive heart and chronic kidney disease without heart failure, with stage 1 through stage 4 chronic kidney disease, or unspecified chronic kidney disease; E11.22 Type 2 diabetes mellitus with diabetic chronic kidney disease; E66.8 Other obesity; Z68.37 Body mass index [BMI] 37.0-37.9, adult
CPT/HCPCS: 36415; 80048; 80053; 82962; 83735; 84100; 85025; 93005; 93010; 96372; 96374; 96375; 96376; 99285-25; C9803-CS; G0378; U0003; U0005

== ENCOUNTER 2023-11-27 16:18 | Observation (INO) | payer OTHER ==
[2023-11-27 16:29] VITALS: BMI 34.9
[2023-11-27 19:25] LABS: BASO % 0.7 % (0-2.0); EOS % 1.5 % (0-4.5); HEMATOCRIT 32.9 % (35.4-49); HEMOGLOBIN 10.4 GM/dL (11.7-16.9); LYMPH % 10.6 % (8-40); MCH 26.7 pg (25.7-33.7); MCHC 31.5 g/dl (32.0-35.9); MEAN CELL VOLUME 84.7 fl (80-96); MEAN PLT VOLUME 7.8 fl (7.5-11.1); MONO % 8.8 % (3.8-10.2); NEUT % 78.4 % (42.8-82.8); PLATELET COUNT 167 10^3/uL (134-434); RBC 3.89 M/mm3 (4.00-5.60); RDW 17.6 % (11.9-15.9); WHITE BLOOD COUNT 5.7 K/mm3 (4.0-10.0)
[2023-11-27 19:40] LABS: INR 1.26 (0.83-1.09); PROTHROMBIN TIME (PATIENT) 14.1 SEC (9.7-13.0)
[2023-11-27 19:42] LABS: POTASSIUM 5.5 mmol/L (3.5-5.1)
[2023-11-27 19:44] LABS: CALCIUM 7.6 mg/dL (8.5-10.1)
[2023-11-27 19:45] LABS: ALBUMIN 3.4 g/dl (3.4-5.0); BLOOD UREA NITROGEN 77.1 mg/dL (7-18)
[2023-11-27 19:47] LABS: MAGNESIUM 2.3 mg/dL (1.8-2.4)
[2023-11-27 19:48] LABS: CREATININE 5.4 mg/dL (0.55-1.3)
[2023-11-27 19:49] LABS: BILIRUBIN,TOTAL 0.5 mg/dL (0.2-1); TOT PROT 7.8 g/dl (6.4-8.2)
[2023-11-27 19:51] LABS: PHOSPHOROUS 5.7 mg/dL (2.5-4.9)
[2023-11-27 21:50] LABS: POTASSIUM 5.4 mmol/L (3.5-5.1)
[2023-11-27 21:52] LABS: BLOOD UREA NITROGEN 77.7 mg/dL (7-18)
[2023-11-27 21:55] LABS: CREATININE 5.4 mg/dL (0.55-1.3)
[2023-11-27] MEDS ORDERED: SODIUM ZIRCONIUM CYCLOSILICATE (LOKELMA) 5 GM PACKET ONE (22:54)
[2023-11-27] MEDS: SODIUM ZIRCONIUM CYCLOSILICATE (LOKELMA) 5 GM PACKET PO ONE (22:57)
[2023-11-28] MEDS: HEPARIN NA (PORCINE) 5,000 UNITS/ML 1ML VIAL SQ SCH (05:42)
[2023-11-28] MEDS ORDERED: INSULIN ASPART SLIDING SCALE (NOVOLOG) 1 VIAL SQ SCH (07:00)
[2023-11-28 07:13] LABS: HEMATOCRIT 31.9 % (35.4-49); HEMOGLOBIN 10.3 GM/dL (11.7-16.9); MCH 27.4 pg (25.7-33.7); MCHC 32.3 g/dl (32.0-35.9); MEAN CELL VOLUME 84.8 fl (80-96); MEAN PLT VOLUME 7.9 fl (7.5-11.1); PLATELET COUNT 163 10^3/uL (134-434); RBC 3.76 M/mm3 (4.00-5.60); RDW 17.6 % (11.9-15.9); WHITE BLOOD COUNT 4.8 K/mm3 (4.0-10.0)
[2023-11-28] MEDS: INSULIN ASPART SLIDING SCALE (NOVOLOG) 1 VIAL SQ SCH (07:47)
[2023-11-28 08:05] LABS: POTASSIUM 4.8 mmol/L (3.5-5.1)
[2023-11-28 08:07] LABS: BLOOD UREA NITROGEN 85.5 mg/dL (7-18); CALCIUM 7.7 mg/dL (8.5-10.1)
[2023-11-28 08:08] LABS: ALBUMIN 3.4 g/dl (3.4-5.0)
[2023-11-28 08:11] LABS: CREATININE 5.8 mg/dL (0.55-1.3)
[2023-11-28 08:12] LABS: BILIRUBIN,TOTAL 0.4 mg/dL (0.2-1); TOT PROT 7.7 g/dl (6.4-8.2)
[2023-11-28] MEDS: CEPHALEXIN MONOHYDRATE 250 MG CAPSULE (FP) PO SCH (09:09)
[2023-11-28] MEDS: CARVEDILOL 25 MG TABLET (FP) PO SCH (09:09)
[2023-11-28] MEDS: CLOPIDOGREL BISULFATE 75 MG TABLET (FP) PO SCH (09:09)
[2023-11-28] MEDS: predniSONE 20 MG TABLET (UD) PO ONE (10:54)
[2023-11-28] MEDS: ATORVASTATIN CA 40 MG TABLET (FP) PO SCH (22:28)
[2023-11-28] MEDS: INSULIN (LEVEMIR) 100 UNITS/ML UNITS SQ SCH (22:28)
[2023-11-29] MEDS ORDERED: SODIUM CHLORIDE 250 ML IV PRN (07:14)
[2023-11-29 07:44] LABS: HEMOGLOBIN 10.2 GM/dL (11.7-16.9); MCHC 31.8 g/dl (32.0-35.9); MEAN CELL VOLUME 84.9 fl (80-96); MEAN PLT VOLUME 8.3 fl (7.5-11.1); PLATELET COUNT 175 10^3/uL (134-434); RBC 3.76 M/mm3 (4.00-5.60); RDW 17.3 % (11.9-15.9); WHITE BLOOD COUNT 5.1 K/mm3 (4.0-10.0)
[2023-11-29 07:59] LABS: POTASSIUM 5.2 mmol/L (3.5-5.1)
[2023-11-29 08:04] LABS: ALBUMIN 3.4 g/dl (3.4-5.0); CALCIUM 7.6 mg/dL (8.5-10.1); MAGNESIUM 2.4 mg/dL (1.8-2.4)
[2023-11-29 08:07] LABS: PHOSPHOROUS 6.4 mg/dL (2.5-4.9)
[2023-11-29 08:08] LABS: BILIRUBIN,TOTAL 0.4 mg/dL (0.2-1); TOT PROT 7.6 g/dl (6.4-8.2)
[2023-11-29] MEDS: predniSONE 20 MG TABLET (UD) PO SCH (09:42)
[2023-11-29] MEDS ORDERED: AMMONIUM LACTATE 12% LOTION 225 GM BOTTLE TP PRN (14:06)
[2023-11-29] MEDS: EPOETIN ALFA-EPBX 10,000 UNIT/ML VIAL SQ ONE (17:09)
[2023-11-29] MEDS: HEPARIN NA (PORCINE) 5,000 UNITS/ML 1ML VIAL IVPUSH ONE (17:11)
[2023-11-29] MEDS ORDERED: SEVELAMER CARBONATE 800 MG TAB (FP) PO SCH (17:30)
[2023-11-29] MEDS: CALCIUM ACETATE 667 MG CAPSULE (FP) PO SCH (18:35)
[2023-11-29 20:09] LABS: HEPATITIS B SURFACE AG CONFIRM CONFIRMED (NONREACTIVE)
[2023-11-30 08:40] LABS: HEMATOCRIT 33.4 % (35.4-49); HEMOGLOBIN 10.7 GM/dL (11.7-16.9); MCH 27.1 pg (25.7-33.7); MEAN CELL VOLUME 84.7 fl (80-96); MEAN PLT VOLUME 7.9 fl (7.5-11.1); PLATELET COUNT 203 10^3/uL (134-434); RBC 3.95 M/mm3 (4.00-5.60); RDW 17.5 % (11.9-15.9)
[2023-11-30 08:55] LABS: POTASSIUM 4.4 mmol/L (3.5-5.1)
[2023-11-30 08:59] LABS: CALCIUM 7.6 mg/dL (8.5-10.1)
[2023-11-30 09:00] LABS: ALBUMIN 3.5 g/dl (3.4-5.0); MAGNESIUM 2.2 mg/dL (1.8-2.4)
[2023-11-30 09:03] LABS: CREATININE 4.2 mg/dL (0.55-1.3); PHOSPHOROUS 4.3 mg/dL (2.5-4.9)
[2023-11-30 09:04] LABS: BILIRUBIN,TOTAL 0.6 mg/dL (0.2-1); TOT PROT 8.3 g/dl (6.4-8.2)
[2023-11-30 09:06] LABS: BLOOD UREA NITROGEN 56.8 mg/dL (7-18)
[2023-11-30] MEDS ORDERED: INSULIN (LEVEMIR) 100 UNITS/ML UNITS SQ ONE (21:32)
[2023-12-01 09:21] VITALS: BP 149/63; PULSE 69; RESP 18; TEMP 97.9
== END 2023-12-01 14:45 | disposition home or self-care (01) ==
LOC: JER 16:18 → JERBED 22:18 → INTOOBSV 22:18 → UNDOADMOB 22:18 → JERBED 11-28 01:56 → J4W 11-28 01:56 → JERBED 11-28 10:03 → J4W 11-29 13:34
PROVIDERS: ADMIT Internal Medicine; ATTEND Internal Medicine
PROC: 3E023GC Introduction of Other Therapeutic Substance into Muscle, Percutaneous Approach (ICD-10-PCS; principal; 2023-11-28)
PROC: 3E013VG Introduction of Insulin into Subcutaneous Tissue, Percutaneous Approach (ICD-10-PCS; 2023-11-28)
PROC: 3E033GC Introduction of Other Therapeutic Substance into Peripheral Vein, Percutaneous Approach (ICD-10-PCS; 2023-11-28)
DX: I25.10 Atherosclerotic heart disease of native coronary artery without angina pectoris (principal); E87.5 Hyperkalemia; N18.6 End stage renal disease; E11.22 Type 2 diabetes mellitus with diabetic chronic kidney disease; M10.9 Gout, unspecified; I13.11 Hypertensive heart and chronic kidney disease without heart failure, with stage 5 chronic kidney disease, or end stage renal disease; Z99.2 Dependence on renal dialysis
CPT/HCPCS: 36415; 70450-TC; 71045-TC-FY; 73630-TC-RT-FY; 73718-TC-RT; 80048; 80053; 82962; 83735; 84100; 84550; 85025; 85027; 85610; 85730; 86038; 86803; 86850; 86900; 86901; 87340; 93005; 93010; 93990-TC; 96372; 96374; 97116-GP; 97162-GP; 99285-25; G0378; J1644; Q5106

== ENCOUNTER 2024-01-10 04:35 | Observation (INO) | payer OTHER ==
[2023-11-20 11:53] VITALS: BMI 34.9
[2024-01-10] MEDS ORDERED: INSULIN (NOVOLOG) ASPART 100 UNITS/ML 10ML VIAL ONE (14:20)
[2024-01-10] MEDS: INSULIN (NOVOLOG) ASPART 100 UNITS/ML 10ML VIAL SQ ONE (14:31)
[2024-01-10 14:35] LABS: POTASSIUM 6.4 mmol/L (3.5-5.1)
[2024-01-10] MEDS ORDERED: BUPIVACAINE HCL/PF 0.5% (5MG/ML) 10 ML VIAL ONE (14:53)
[2024-01-10] MEDS: HEPARIN NA (PORCINE) 5,000 UNITS/ML 1ML VIAL IVPUSH ONE (16:05)
[2024-01-10 16:20] VITALS: RESP 18; TEMP 98.2
[2024-01-10] MEDS ORDERED: SODIUM CHLORIDE 250 ML IV PRN (16:24)
[2024-01-10 19:35] VITALS: BP 151/76; PULSE 70
== END 2024-01-10 15:44 | disposition home or self-care (01) ==
LOC: JASU-SURG 04:35 → JERBED 15:44
PROVIDERS: ADMIT Internal Medicine; ATTEND Internal Medicine
PROC: 3E033GC Introduction of Other Therapeutic Substance into Peripheral Vein, Percutaneous Approach (ICD-10-PCS; principal; 2024-01-10)
PROC: 3E013VG Introduction of Insulin into Subcutaneous Tissue, Percutaneous Approach (ICD-10-PCS; 2024-01-10)
DX: E87.5 Hyperkalemia (principal); E11.22 Type 2 diabetes mellitus with diabetic chronic kidney disease; I13.11 Hypertensive heart and chronic kidney disease without heart failure, with stage 5 chronic kidney disease, or end stage renal disease; N18.6 End stage renal disease; Z99.2 Dependence on renal dialysis; I25.10 Atherosclerotic heart disease of native coronary artery without angina pectoris; H54.8 Legal blindness, as defined in USA; H40.9 Unspecified glaucoma; Z87.891 Personal history of nicotine dependence; Z91.119 Patient's noncompliance with dietary regimen due to unspecified reason; Z53.8 Procedure and treatment not carried out for other reasons
CPT/HCPCS: 36415; 82962; 84132; 93005; 93010; 96372; 96374; G0378; J1644

== ENCOUNTER 2024-02-20 20:53 | Emergency (ER) | payer OTHER ==
[2024-02-20 21:02] VITALS: BP 165/60; PULSE 74; RESP 18; TEMP 98.6; BMI 34.2
[2024-02-20 21:40] LABS: EPI CELLS 17 /uL (0-25.1); HYALINE CASTS 1 /uL (0-3.1); PH,URINE 7.5 (5.0-8.0); URINE APPEARANCE CLEAR; URINE BACTERIA 9 /uL (0-1359); URINE BILIRUBIN NEGATIVE (NEGATIVE); URINE COLOR YELLOW; URINE GLUCOSE (UA) NEGATIVE (NEGATIVE); URINE KETONE TRACE (NEGATIVE); URINE LEUK ESTERASE 1+ (NEGATIVE); URINE NITRITE NEGATIVE (NEGATIVE); URINE PROTEIN 2+ (NEGATIVE); URINE RBC 58 /uL (0-23.9); URINE WBC 106 /uL (0-25.8)
== END 2024-02-20 21:52 | disposition home or self-care (01) ==
LOC: JER 20:53
PROC: 0T9B70Z Drainage of Bladder with Drainage Device, Via Natural or Artificial Opening (ICD-10-PCS; principal; 2024-02-20)
DX: R33.9 Retention of urine, unspecified (principal)
CPT/HCPCS: 81003; 87086; 99283-25